=== PATIENT | female | born 1955 | race Caucasian/White ===

== ENCOUNTER 2023-04-05 09:25 | Emergency (ER) | payer MEDICARE, OTHER, SELFPAY ==
[2023-04-05 09:30] VITALS: BP 148/72
[2023-04-05 09:56] LABS: % Basophils 0.3 % (0-2); % Eosinophils 1.6 % (0-6); % Immature Granulocytes 0.3 % (0-0.5); % Lymphocytes 8.3 % (20.5-51.1); % Monocytes 10.5 % (1.7-9.3); Absolute Eosinophils 0.1 10^3/uL (0-0.7); Absolute Lymphocytes 0.3 10^3/uL (1.2-3.4); Absolute Monocytes 0.3 10^3/uL (0.1-0.6); Absolute Neutrophils 2.5 10^3/uL (1.4-6.5); Hematocrit 38.3 % (37.0-47.0); Hemoglobin 12.9 g/dL (12.0-16.0); Mean Corp Hgb Conc. 33.7 g/dL (33.0-37.0); Mean Corpuscular Hgb 30.3 pg (27.0-31.0); Mean Corpuscular Volume 89.9 fL (81.0-99.0); Mean Platelet Volume 10.1 fL (7.4-10.4); Nucleated Red Blood Cells % 0 %; Platelet Count 162 10^3/uL (130-400); Red Blood Cell Count 4.26 10^6/uL (4.20-5.40); Red Cell Dist. Width 13.3 % (11.5-14.5); White Blood Cell Count 3.2 10^3/uL (4.8-10.8)
[2023-04-05 10:04] LABS: COVID-19 Antigen Negative (Negative)
[2023-04-05] MEDS: TYLENOL 1000 MG PO (11:32)
[2023-04-05] MEDS: ZOFRAN 4 MG IV (11:41)
[2023-04-05] MEDS: DUONEB 3 ML INH (11:41)
[2023-04-05] MEDS: NSS 1000 IV (11:41)
[2023-04-05] MEDS: TORADOL 15 MG IV (12:25)
[2023-04-05 12:29] LABS: ALT (SGPT) 28 U/L (0-35); AST (SGOT) 29 U/L (14-36); Albumin 4.3 g/dl (3.5-5.0); Alkaline Phosphatase 69 U/L (38-126); Blood Urea Nitrogen 9 mg/dl (7-17); Calcium 8.5 mg/dl (8.4-10.2); Carbon Dioxide 25 mmol/L (22-30); Chloride 104 mmol/L (98-107); Glucose 92 mg/dl (70-99); Potassium 4.1 mmol/L (3.5-5.1); Sodium 134 mmol/L (135-145); Total Bilirubin 0.8 mg/dl (0.2-1.3); Total Protein 6.6 g/dl (6.3-8.2); eGFR > 60.00
[2023-04-05 13:59] VITALS: BP 106/45
[2023-04-05] MEDS: BENADRYL 12.5 MG IV (13:59)
[2023-04-05] MEDS: REGLAN 10 MG IV (13:59)
[2023-04-05] MEDS: MAGNESIUM SULFATE 50 IV (13:59)
[2023-04-05] MEDS: NSS 500 IV (14:00)
--- NOTE | 2023-04-05 15:47 | ED.GENMED ---
History of Present Illness
General
Chief Complaint: Cold/Flu/URI Symptoms
Source: patient and spouse
Exam Limitations: none
Time Seen by Provider: 04/05/23 11:00
Nursing documentation reviewed up to this point in time: agreed with
Travel History
Have you had any contact with someone who has COVID-19?: No
Do you have any symptoms of coronavirus? Fever > 100 degrees, chills, cough, shortness of breath, sore throat, loss of taste or smell, muscle aches, or headache?: Yes
Symptoms:: cough
History of Present Illness
History of Present Illness:
67-year-old female with a past medical history of hyperlipidemia who presents to the emergency department accompanied by her for evaluation of flulike illness. Patient reports that she was recently on vacation and returned home a few days
ago. She says that on the flight home and since she has arrived home she has had progressive flulike symptoms. She says initially she started with nausea and since has developed cough, congestion, fever and chills. She says she has been vomiting.
She has had some diarrhea. She says that she is having some mild shortness of breath. She says that the symptoms do not seem to be going away and she is having trouble tolerating p.o., thus came to the emergency room to be assessed. She has had
mild headache. No neck pain or stiffness. No chest pain. No abdominal pain.
Past History
Past History
ED Past Medical History: Cancer ( lymphoma), Hypercholesterolemia and Hypothyroidism
ED Past Surgical History: Appendectomy, Gynecological, Orthopedic and Other (Biopsy)
Social History
Tobacco: Non-smoker
Alcohol: Occasional
Drug: None
Personal:
Living: with family
Family History
Family History: CAD
Review of Systems
Review of Systems
All Other Systems: ROS reviewed and negative except as documented in HPI and ROS
Constitutional: Reports fever, fatigue and chills
EENT: Reports runny nose
Respiratory: Reports cough and trouble breathing
Cardiac: Denies chest pain
ABD/GI: Reports nausea, vomiting and diarrhea; Denies abdominal pain
: Denies flank pain
Musculoskeletal: Reports muscle pain (Myalgias); Denies neck pain
Neurological: Reports headache; Denies dizzy, weakness or numbness
Phy Exam
Physical Exam
Physical Exam:
General: Awake, alert, oriented x3; no acute distress
Head: Normocephalic, atraumatic
Eyes: Conjunctiva normal, sclera anicteric
Throat: Airway intact, mucous membranes slightly dry
Neck: Trachea midline, supple without meningismus
Lungs: Normal respiratory rate and work of breathing; faint scattered wheezing with frequent coughing with deep inspiration
Heart: Regular rate and rhythm, no murmurs, gallops, or rubs
Abd: Soft, non distended, nontender
Neuro: Cranial nerves grossly intact, speech fluid
Skin: no rash
Extremities: No edema in extremities, equal pulses in all extremities
Scores
Heart Failure Risk
Heart Failure Risk Score: Not Applicable
Heart Score for Chest Pain Patients
STEMI patient?: Not applicable
Withdrawal Assessment of Alcohol
Withdrawal Assessment Completed?: Not applicable
Course
Orders/Labs/Results
Orders:
Orders
04/05/23 09:39
CBC/With Diff [Complete Blood Count/With Diff] Urgent
COVID-19 Antigen Urgent
Source: Nasal Swab
INF RAPID [Influenza A+B Rapid Molecular] Urgent
LONI Source: Nasal Swab
Specimen Description:
04/05/23 09:40
Comprehensive Metabolic Panel Urgent
04/05/23 11:01
CR Chest - 2 Views Urgent
Comment:
Reason For Exam: cough, sob, flu+
04/05/23 11:02
Electrocardiogram (*1) Urgent
Reason for Study: Shortness of Breath
EKG- Treatment ONCE
Acetaminophen [Tylenol] 1,000 mg PO NOW STA
04/05/23 11:13
0.9% Sodium Chloride 1000 ml [Nss] 1,000 ml IV BOLUS
Ipratropium/Albuterol Sulfate [Duoneb] 3 ml INH R NOW ONE
Ondansetron Injectable [Zofran] 4 mg IV NOW STA
04/05/23 12:21
Ketorolac [Toradol] 15 mg IV NOW STA
04/05/23 13:41
0.9% Sodium Chloride 500 ml [Nss] 500 ml IV BOLUS
Diphenhydramine [Benadryl] 12.5 mg IV NOW STA
Magnesium Sulfate 2 Gram/50 ml [Magnesium Sulfate] 2 gram in 50 ml IV NOW
Metoclopramide [Reglan] 10 mg IV NOW STA
Abnormal Lab Results
04/05/23 04/05/23
09:39 09:40
WBC 3.2 L 10^3/uL
(4.8-10.8)
Absolute Lymphs (auto) 0.3 L 10^3/uL
(1.2-3.4)
Neutrophils % 79.0 H %
(42.2-75.2)
Lymphocytes % 8.3 L %
(20.5-51.1)
Monocytes % 10.5 H %
(1.7-9.3)
Sodium 134 L mmol/L
(135-145)
04/05/23 09:39
04/05/23 09:40
Vital Signs
Initial and Last Documented VS:
Initial Vital Signs
Temp Pulse Resp BP Pulse Ox
38.1 C H 97 16 148/72 98
04/05/23 09:30 04/05/23 09:30 04/05/23 09:30 04/05/23 09:30 04/05/23 09:30
Last Documented Vital Signs
Temp Pulse Resp BP Pulse Ox
37.1 C 94 18 106/45 96
04/05/23 13:59 04/05/23 13:59 04/05/23 13:59 04/05/23 13:59 04/05/23 13:59
MDM/Problems Addressed
Differential Diagnosis Includes:
Viral syndrome including influenza or COVID, pneumonia; meningitis always a consideration with headache, fever, vomiting--while she has had mild headache she has no neck pain or stiffness and symptoms more consistent with viral syndrome, supple neck
on exam�in my judgment there is no indication for lumbar puncture at least upfront
MDM/Problems Addressed:
67-year-old female presents for evaluation of flulike syndrome for the past 3 days after returning from vacation. Primary symptoms are nausea and vomiting with cough, congestion, shortness of breath, fever/chills. Vital signs here significant for
low-grade fever 38.1 �C. Rest of vitals within normal limits. Clinically she does appear slightly dehydrated. Exam as above. Will plan to place an IV check labs including a CBC and CMP; swab for COVID and influenza. Check a chest x-ray to rule
out pneumonia. Will check an EKG. Will treat symptomatically in the meantime with Tylenol for fever, Toradol for headache, Zofran for nausea, IV fluids. Will treat with a DuoNeb as she does have some very faint wheezing on exam and significant
cough. Monitor closely reassess after the above.
Labs reviewed CBC shows marginal leukopenia to 3.2. CMP no clinically significant abnormalities. COVID swab negative. Influenza swab positive which I suspect is the etiology of her symptoms. Chest x-ray shows no pneumonia. Clinical reassessment
patient still complaining of some nausea and mild headache. Will treat with some Reglan, Benadryl, magnesium and continue fluids.
Clinical reassessment after medications as above patient is sleeping comfortably. Will continue to monitor for short period of time. She has not had any vomiting here. Will trial p.o.
Patient tolerating p.o. in fact was requesting food. She is feeling a bit better after medications. I think at this point she is stable for discharge. Considered treating with Tamiflu but patient now 3 days into the course of her symptoms outside
the window for benefit and Tamiflu may exacerbate nausea/vomiting regardless. Will opt instead for supportive treatment with Tylenol/Motrin, Zofran, Mucinex, plenty of fluids. Patient feels comfortable with this plan. Spoke to her about return
precautions all questions answered.
*Radiology
Radiology exam reviewed: preliminary read by ED provider and radiology read reviewed
*Pulse Oximetry
Patient hypoxic: no
*EKG
Interpreted by ED Provider?: Yes
Heart Rate: 103
Rate: normal
Rhythm: sinus
[place]: normal axis
Interval: normal interval
QRS Pattern: normal QRS
Ischemia: no ischemia
*Critical Care Note
Total Time (30-74mins, 75-104mins- exclusive of procedures): Not Applicable
Data Reviewed
Review of Other/Old Records Reveals: Labs and Records
Source: patient and spouse
Prescriptions/Medications Considered But Not Given:
Considered Tamiflu as above
Further Testing Considered But Not Given:
Considered lumbar puncture as above
ED Attending Note
-
Portions of this chart may have been created with voice recognition software.� Occasional wrong word or��sound alike� substitutions may have occurred due to the inherent limitations of voice recognition software.
Discharge Plan
Departure
Patient with high blood pressure during this ER visit?: No
Discharge Problem:
Influenza A
Instructions: Viral Syndrome (DC)
Prescriptions:
New
ondansetron 4 mg tablet,disintegrating
4 mg PO TIDPRN PRN (Reason: nausea/vomiting) Qty: 20 0RF
guaifenesin [Mucinex] 600 mg tablet extended release 12hr
600 mg PO BID Qty: 14 0RF
No Action
raloxifene 60 MG tablet
10 mg PO DAILY
rosuvastatin 40 MG tablet
40 mg PO HS
ascorbic acid (vitamin C) [Vitamin C] 500 MG tablet
1,000 mg PO BID Qty: 56 0RF
zinc sulfate 220 MG capsule
220 mg PO DAILY Qty: 14 0RF
cholecalciferol (vitamin D3) 1,000 UNITS tablet
2,000 units PO DAILY Qty: 28 0RF
Multivitamin Gummies
1 tab PO DAILY
oxycodone 5 mg tablet
5 - 10 mg PO Q4HPRN PRN (Reason: moderate to severe pain) Qty: 20 0RF
prednisone 10 mg Tablet
See Rx Instructions .ROUTE .COMPLEX Qty: 30 0RF
Rx Instructions:
Take By Mouth:
40 mg daily x3 days, 30 mg daily x3 days,
20 mg daily x3 days, 10 mg daily x3 days.
albuterol sulfate [ProAir HFA] 90 mcg/actuation Hfa Aerosol Inhaler
2 puff INHALATION R Q4HPRN PRN (Reason: shortness of breath) Qty: 8.5 0RF
benzonatate 100 mg capsule
100 mg PO TID PRN (Reason: Cough) Qty: 10 0RF
prednisone 50 mg tablet
50 mg PO DAILY Qty: 5 0RF
doxycycline hyclate 100 mg tablet
100 mg PO BID 10 Days Qty: 20 0RF
albuterol sulfate 90 mcg/actuation HFA aerosol inhaler
2 puff inhalation Q6H PRN (Reason: shortness of breath or wheezing) Qty: 6.7 0RF
Referrals:
Forrest Rodríguez MD [Family Provider] - Call in 1-3 days for appt
Activity Restrictions/Additional Instructions:
Thank you for visiting the Emergency Department at [facility].
1. Please schedule a follow up appointment as directed. Call first thing tomorrow morning to make an appointment.
2. If indicated, please take your medications as instructed and indicated on discharge paperwork.
3. If any of your symptoms do not improve, or persist, or become more severe within 6-12 hours, please return to the emergency department for further care.
4. Please return to the emergency department if you develop a headache, neck pain/stiffness, fever greater than 100.4F, chest pain, shortness of breath, persistent nausea, vomiting, slurred speech, difficulty walking, numbness/tingling, weakness,
signs of infection or any other symptoms that are worrisome to you.
Please call [phone] if you have any questions.
Interventions
Interventions:
*Risk Screen - Suicide Last Done: 04/05/23 09:30
*General Assessment Last Done: 04/05/23 09:30
*Neglect/Abuse Screening Last Done: 04/05/23 09:30
ED- Fall Risk Assessment Last Done: 04/05/23 14:03
*ED COVID-19 Vaccine History Last Done: 04/05/23 14:03
ED- Pulmonary Assessment Last Done: 04/05/23 11:48
[2023-04-05 16:40] VITALS: BP 108/64
== END 2023-04-05 16:41 | disposition home or self-care (01) ==
LOC: EMR 09:25
PROVIDERS: Emergency Medicine; EMERGENCY PHYSICIAN Emergency Medicine; FAMILY PHYSICIAN Family Medicine
DX: J10.1 Influenza due to other identified influenza virus with other respiratory manifestations (principal); E86.0 Dehydration; R06.02 Shortness of breath; E03.9 Hypothyroidism, unspecified; Z11.52 Encounter for screening for COVID-19
CPT/HCPCS: 99285; 96365; 96375 ×4; 94640; 71046; 80053; 85025; 87502; 87811; 93005

== ENCOUNTER → 2023-06-10 15:00 | Outpatient (REF) | payer MEDICARE, OTHER, SELFPAY | LOC: RAD 15:00 | PROVIDERS: ATTENDING PHYSICIAN Internal Medicine Critical Care Medicine; FAMILY PHYSICIAN Family Medicine | DX: R93.89 Abnormal findings on diagnostic imaging of other specified body structures (principal); J21.9 Acute bronchiolitis, unspecified | CPT/HCPCS: 71250 ==

== ENCOUNTER → 2023-09-04 13:22 | Outpatient (REF) | payer MEDICARE, OTHER, SELFPAY | LOC: WDC 13:22 | PROVIDERS: ATTENDING PHYSICIAN Obstetrics & Gynecology Gynecology; FAMILY PHYSICIAN Family Medicine | DX: M85.89 Other specified disorders of bone density and structure, multiple sites (principal); Z12.31 Encounter for screening mammogram for malignant neoplasm of breast | CPT/HCPCS: 77063; 77067; 77080 ==

== ENCOUNTER → 2023-10-03 08:32 | Outpatient (REF) | payer MEDICARE, OTHER, SELFPAY | LOC: RAD 08:32 | PROVIDERS: ATTENDING PHYSICIAN Internal Medicine Gastroenterology; FAMILY PHYSICIAN Family Medicine | DX: K59.00 Constipation, unspecified (principal) | CPT/HCPCS: 74270 ==

== ENCOUNTER → 2023-10-28 14:44 | Outpatient (REF) | payer MEDICARE, OTHER, SELFPAY | LOC: WDC 14:44 | PROVIDERS: ATTENDING PHYSICIAN Obstetrics & Gynecology Gynecology; FAMILY PHYSICIAN Family Medicine | DX: R92.2 Inconclusive mammogram (principal) | CPT/HCPCS: 76641 ==

== ENCOUNTER → 2023-11-01 10:44 | Outpatient (REF) | payer MEDICARE, OTHER, SELFPAY | LOC: RAD 10:44 | PROVIDERS: ATTENDING PHYSICIAN Nurse Practitioner Family; FAMILY PHYSICIAN Family Medicine; REFERRING PHYSICIAN Obstetrics & Gynecology | DX: R19.00 Intra-abdominal and pelvic swelling, mass and lump, unspecified site (principal) | CPT/HCPCS: 76700; 76856 ==

== ENCOUNTER 2023-11-06 14:59 | Outpatient (RCR) | payer MEDICARE, OTHER, SELFPAY | END 2023-11-06 23:59 | disposition home or self-care (01) | LOC: RPT 14:59 | PROVIDERS: ATTENDING PHYSICIAN Obstetrics & Gynecology; FAMILY PHYSICIAN Family Medicine | DX: K59.00 Constipation, unspecified (principal); R19.8 Other specified symptoms and signs involving the digestive system and abdomen; M62.89 Other specified disorders of muscle; Z73.6 Limitation of activities due to disability | CPT/HCPCS: 97110; 97140; 97163; 97530 ==

== ENCOUNTER 2023-11-25 14:06 | Outpatient (RCR) | payer MEDICARE, OTHER, SELFPAY | END 2023-11-25 23:59 | disposition home or self-care (01) | LOC: RPT 14:06 | PROVIDERS: ATTENDING PHYSICIAN Obstetrics & Gynecology; FAMILY PHYSICIAN Family Medicine | DX: K59.00 Constipation, unspecified (principal); R19.8 Other specified symptoms and signs involving the digestive system and abdomen; M62.89 Other specified disorders of muscle; Z73.6 Limitation of activities due to disability | CPT/HCPCS: 97140; 97530 ==

== ENCOUNTER 2023-12-25 13:57 | Outpatient (RCR) | payer MEDICARE, OTHER, SELFPAY | END 2023-12-25 23:59 | disposition home or self-care (01) | LOC: RPT 13:57 | PROVIDERS: ATTENDING PHYSICIAN Obstetrics & Gynecology; FAMILY PHYSICIAN Family Medicine | DX: K59.00 Constipation, unspecified (principal); R19.8 Other specified symptoms and signs involving the digestive system and abdomen; M62.89 Other specified disorders of muscle; Z73.6 Limitation of activities due to disability | CPT/HCPCS: 97010; 97110; 97112; 97140; 97530 ==

== ENCOUNTER 2024-01-15 11:35 | Outpatient (RCR) | payer MEDICARE, OTHER, SELFPAY | END 2024-01-15 13:48 | disposition home or self-care (01) | LOC: RPT 11:35 | PROVIDERS: ATTENDING PHYSICIAN Obstetrics & Gynecology; FAMILY PHYSICIAN Family Medicine | DX: M62.89 Other specified disorders of muscle (principal); R19.8 Other specified symptoms and signs involving the digestive system and abdomen; K59.00 Constipation, unspecified | CPT/HCPCS: 97110; 97112; 97140; 97530 ==

== ENCOUNTER → 2024-01-31 09:02 | Outpatient (REF) | payer MEDICARE, OTHER, SELFPAY | LOC: RCS 09:02 | PROVIDERS: ATTENDING PHYSICIAN Internal Medicine Cardiovascular Disease; FAMILY PHYSICIAN Family Medicine | DX: I35.1 Nonrheumatic aortic (valve) insufficiency (principal) | CPT/HCPCS: 93306 ==

== ENCOUNTER 2024-02-03 16:56 | Outpatient (RCR) | payer MEDICARE, OTHER, SELFPAY | END 2024-02-03 23:59 | disposition home or self-care (01) | LOC: RPT 16:56 | PROVIDERS: ATTENDING PHYSICIAN Specialist; FAMILY PHYSICIAN Family Medicine | DX: M75.42 Impingement syndrome of left shoulder (principal); M75.32 Calcific tendinitis of left shoulder; M75.02 Adhesive capsulitis of left shoulder; M25.512 Pain in left shoulder; Z73.6 Limitation of activities due to disability; M62.81 Muscle weakness (generalized) | CPT/HCPCS: 97010; 97110; 97112; 97140; 97161 ==

== ENCOUNTER 2024-02-25 06:35 | Outpatient (RCR) | payer MEDICARE, OTHER, SELFPAY | END 2024-02-25 23:59 | disposition home or self-care (01) | LOC: RPT 06:35 | PROVIDERS: ATTENDING PHYSICIAN Specialist; FAMILY PHYSICIAN Family Medicine | DX: M75.42 Impingement syndrome of left shoulder (principal); M75.32 Calcific tendinitis of left shoulder; M75.02 Adhesive capsulitis of left shoulder; M25.512 Pain in left shoulder; Z73.6 Limitation of activities due to disability; M62.81 Muscle weakness (generalized) | CPT/HCPCS: 97010; 97110; 97112; 97140 ==

== ENCOUNTER → 2024-05-11 15:00 | Outpatient (REF) | payer MEDICARE, OTHER, SELFPAY | LOC: PAVMRI 15:00 | PROVIDERS: ATTENDING PHYSICIAN Specialist; FAMILY PHYSICIAN Family Medicine | DX: M25.512 Pain in left shoulder (principal) | CPT/HCPCS: 73221 ==

== ENCOUNTER 2024-06-30 13:58 | Emergency (ER) | payer MEDICARE, OTHER, SELFPAY ==
[2024-06-30 14:00] VITALS: BP 135/62
--- NOTE | 2024-06-30 16:49 | EDRN ---
the pt pressed the call ro and this RN entered the pts room, the pt stated to this RN, 'I am going to just leave if a doctor doesn't see me i have been here forever', this RN notified Dr. Navarro who is currently at the pts bedside
[2024-06-30 17:00] VITALS: BP 123/67
[2024-06-30] MEDS: OMNIPAQUE 50 ML PO (17:04)
[2024-06-30 17:08] VITALS: BMI 21.6
[2024-06-30 17:10] VITALS: BP 123/67
[2024-06-30 17:21] LABS: % Basophils 0.2 % (0-2); % Eosinophils 2.4 % (0-6); % Immature Granulocytes 0.3 % (0-0.5); % Lymphocytes 16.4 % (20.5-51.1); % Monocytes 8.3 % (1.7-9.3); % Neutrophils 72.4 % (42.2-75.2); Absolute Eosinophils 0.1 10^3/uL (0-0.7); Absolute Monocytes 0.5 10^3/uL (0.1-0.6); Absolute Neutrophils 4.3 10^3/uL (1.4-6.5); Hematocrit 35.1 % (37.0-47.0); Mean Corp Hgb Conc. 34.2 g/dL (33.0-37.0); Mean Corpuscular Hgb 30.9 pg (27.0-31.0); Mean Corpuscular Volume 90.5 fL (81.0-99.0); Mean Platelet Volume 10.1 fL (7.4-10.4); Nucleated Red Blood Cells % 0 %; Platelet Count 172 10^3/uL (130-400); Red Blood Cell Count 3.88 10^6/uL (4.20-5.40); Red Cell Dist. Width 12.6 % (11.5-14.5); White Blood Cell Count 5.9 10^3/uL (4.8-10.8)
[2024-06-30 17:39] LABS: ALT (SGPT) 16 U/L (0-35); AST (SGOT) 17 U/L (14-36); Alkaline Phosphatase 58 U/L (38-126); Blood Urea Nitrogen 14 mg/dl (7-17); Calcium 8.9 mg/dl (8.4-10.2); Carbon Dioxide 26 mmol/L (22-30); Chloride 103 mmol/L (98-107); Estimated Creatinine Clearance 74 ml/min; Glucose 107 mg/dl (70-99); Potassium 4.1 mmol/L (3.5-5.1); Sodium 136 mmol/L (135-145); Total Protein 6.2 g/dl (6.3-8.2); eGFR > 60.00
--- NOTE | 2024-06-30 19:11 | ED.GENMED ---
History of Present Illness
General
Chief Complaint: Bowel Problem
Source: patient and spouse
Exam Limitations: none
Time Seen by Provider: 06/30/24 16:39
Nursing documentation reviewed up to this point in time: agreed with
History of Present Illness
History of Present Illness:
69-year-old female with past medical history as documented presents to the ER for evaluation of constipation and abdominal pain. Patient reports symptoms have been worsening over the past 4 days. She reports lower abdominal discomfort 'like I am
in labor.' She says that she has not had a bowel movement in 4 days. She is passing gas. Poor appetite mild nausea no vomiting. No fever or chills. No urinary symptoms. She says she has been taking oral magnesium, Colace, Metamucil and eating
fiber but these things have not helped and so she came to the ER for evaluation. She does have prior surgical history of hysterectomy, appendectomy, oophorectomy, cholecystectomy
Past History
Past History
ED Past Medical History: Cancer ( lymphoma), Hypercholesterolemia and Hypothyroidism
ED Past Surgical History: Appendectomy, Gynecological, Orthopedic and Other (Biopsy)
Social History
Tobacco: Non-smoker
Alcohol: Occasional
Drug: None
Personal:
Living: with family
Family History
Family History: CAD
Review of Systems
Review of Systems
All Other Systems: ROS reviewed and negative except as documented in HPI and ROS
Constitutional: Denies fever or chills
Respiratory: Denies trouble breathing
Cardiac: Denies chest pain
ABD/GI: Reports abdominal pain, nausea, constipated and anorexia; Denies vomiting or diarrhea
: Denies dysuria or flank pain
Musculoskeletal: Denies neck pain or back pain
Neurological: Denies dizzy or headache
Phy Exam
Physical Exam
Physical Exam:
General: Awake, alert, oriented x3; no acute distress
Head: Normocephalic, atraumatic
Eyes: Conjunctiva normal, sclera anicteric
Throat: Airway intact, handling secretions
Neck: Trachea midline, supple without meningismus
Lungs: Breathing comfortably no distress
Heart: Regular rate
Abd: Soft, non distended, mild diffuse tenderness
Rectal: No stool noted in the rectal vault
Neuro: No gross deficits
Extremities: Warm and well-perfused
Scores
Heart Failure Risk
Heart Failure Risk Score: Not Applicable
Heart Score for Chest Pain Patients
STEMI patient?: Not applicable
Withdrawal Assessment of Alcohol
Withdrawal Assessment Completed?: Not applicable
Course
Orders/Labs/Results
Orders:
Orders
06/30/24 14:02
Obstruct Series W/PA Chest [CR Obstruct Series W/pa Chest] Urgent
Comment:
Reason For Exam: constipation for 4 days
06/30/24 16:52
CT Abd/pel W Iv And Oral Contr Urgent
Comment:
Reason For Exam: abd pain, constipation; cf SBO
Iohexol [Omnipaque] See Protocol PO NOW STA
06/30/24 17:06
Complete Blood Count/With Diff Urgent
Comprehensive Metabolic Panel Urgent
06/30/24 19:40
Bladder Scan- Treatment ONCE
Straight cath- Treatment ONCE
06/30/24 20:05
MetroNIDAZOLE [Flagyl] 500 mg PO NOW STA
06/30/24 20:06
Ciprofloxacin HCl [Cipro] 500 mg PO ONCE ONE
Abnormal Lab Results
06/30/24
17:06
RBC 3.88 L 10^6/uL
(4.20-5.40)
Hct 35.1 L %
(37.0-47.0)
Absolute Lymphs (auto) 1.0 L 10^3/uL
(1.2-3.4)
Lymphocytes % 16.4 L %
(20.5-51.1)
Glucose 107 H mg/dl
(70-99)
Total Protein 6.2 L g/dl
(6.3-8.2)
06/30/24 17:06
06/30/24 17:06
Vital Signs
Initial and Last Documented VS:
Initial Vital Signs
Temp Pulse Resp BP Pulse Ox
37.1 C 96 18 135/62 100
06/30/24 14:00 06/30/24 14:00 06/30/24 14:00 06/30/24 14:00 06/30/24 14:00
Last Documented Vital Signs
Temp Pulse Resp BP Pulse Ox
36.4 C 76 20 123/67 98
06/30/24 17:10 06/30/24 17:10 06/30/24 17:10 06/30/24 17:10 06/30/24 17:10
MDM/Problems Addressed
Differential Diagnosis Includes:
Bowel obstruction, constipation, diverticulitis
MDM/Problems Addressed:
69-year-old female presents for lower abdominal pain associated with constipation. Ongoing x 4 days. History of prior abdominal surgeries as described. Vitals normal. Exam as above. She had an x-ray of the abdomen in triage which showed no
clear obstruction but given her surgical history and tenderness we will check CT of the abdomen pelvis with p.o. and IV contrast. Usual labs sent off. Reassess after the above.
Labs reviewed: CBC and CMP unremarkable. CT still pending.
CT shows mild to moderate constipation and acute uncomplicated sigmoid diverticulitis. Plan to treat with antibiotics advised clear liquid diet and advance to low fiber over the next few days. Patient comfortable with this plan. Follow-up with
PCP. Spoke about return precautions all questions answered. I provided a copy of imaging reports for her to follow-up with her primary doctor.
Patient was noted to have urinary retention�straight cath prior to discharge will trial void suspect will improve with treatment diverticulitis and constipation. Discussed with patient will follow-up with PCP.
*Radiology
Radiology exam reviewed: radiology read reviewed
*Pulse Oximetry
Patient hypoxic: no
*Critical Care Note
Total Time (30-74mins, 75-104mins- exclusive of procedures): Not Applicable
Data Reviewed
Review of Other/Old Records Reveals: Labs
Source: patient, records and spouse
ED Attending Note
-
Portions of this chart may have been created with voice recognition software.� Occasional wrong word or��sound alike� substitutions may have occurred due to the inherent limitations of voice recognition software.
Discharge Plan
Departure
Patient Disposition: Home (Routine Discharge)
Date of Disposition: 06/30/24
Time of Disposition: 20:07
Patient with high blood pressure during this ER visit?: No
Discharge Problem:
Constipation, Diverticulitis
Instructions: Clear Liquid Diet, Constipation, Adult (DC), Diverticulitis - Discharge instructions
Prescriptions:
New
metronidazole 500 mg tablet
500 mg PO TID Qty: 21 0RF
ciprofloxacin HCl 500 mg tablet
500 mg PO BID Qty: 14 0RF
No Action
raloxifene 60 MG tablet
10 mg PO DAILY
rosuvastatin 40 MG tablet
40 mg PO HS
ascorbic acid (vitamin C) [Vitamin C] 500 MG tablet
1,000 mg PO BID Qty: 56 0RF
zinc sulfate 220 MG capsule
220 mg PO DAILY Qty: 14 0RF
cholecalciferol (vitamin D3) 1,000 UNITS tablet
2,000 units PO DAILY Qty: 28 0RF
Multivitamin Gummies
1 tab PO DAILY
oxycodone 5 mg tablet
5 - 10 mg PO Q4HPRN PRN (Reason: moderate to severe pain) Qty: 20 0RF
albuterol sulfate [ProAir HFA] 90 mcg/actuation Hfa Aerosol Inhaler
2 puff INHALATION R Q4HPRN PRN (Reason: shortness of breath) Qty: 8.5 0RF
benzonatate 100 mg capsule
100 mg PO TID PRN (Reason: Cough) Qty: 10 0RF
doxycycline hyclate 100 mg tablet
100 mg PO BID 10 Days Qty: 20 0RF
albuterol sulfate 90 mcg/actuation HFA aerosol inhaler
2 puff inhalation Q6H PRN (Reason: shortness of breath or wheezing) Qty: 6.7 0RF
ondansetron 4 mg tablet,disintegrating
4 mg PO TIDPRN PRN (Reason: nausea/vomiting) Qty: 20 0RF
guaifenesin [Mucinex] 600 mg tablet extended release 12hr
600 mg PO BID Qty: 14 0RF
Referrals:
Forrest Rodríguez MD [Family Provider] - Follow up in 5-7 days
Activity Restrictions/Additional Instructions:
Thank you for visiting the Emergency Department at [facility].
1. Please schedule a follow up appointment as directed. Call first thing tomorrow morning to make an appointment.
2. If indicated, please take your medications as instructed and indicated on discharge paperwork.
3. If any of your symptoms do not improve, or persist, or become more severe within 6-12 hours, please return to the emergency department for further care.
4. Please return to the emergency department if you develop a headache, neck pain/stiffness, fever greater than 100.4F, chest pain, shortness of breath, persistent nausea, vomiting, slurred speech, difficulty walking, numbness/tingling, weakness,
signs of infection or any other symptoms that are worrisome to you.
Please call [phone] if you have any questions.
Interventions
Interventions:
*Risk Screen - Suicide Last Done: 06/30/24 14:01
*General Assessment Last Done: 06/30/24 14:01
*Neglect/Abuse Screening Last Done: 06/30/24 14:01
*ED- Fall Risk Assessment Last Done: 06/30/24 17:10
*ED COVID-19 Vaccine History Last Done: 06/30/24 14:01
WC-Losfzs-Ynyjdllumt Assessment Last Done: 06/30/24 17:10
Discharge Date and Time
Print Language: AMHARIC
[2024-06-30] MEDS: FLAGYL 500 MG PO (20:27)
[2024-06-30] MEDS: CIPRO 500 MG PO (20:27)
== END 2024-06-30 20:45 | disposition home or self-care (01) ==
LOC: EMR 13:58
PROVIDERS: EMERGENCY PHYSICIAN Emergency Medicine; FAMILY PHYSICIAN Family Medicine
DX: K57.32 Diverticulitis of large intestine without perforation or abscess without bleeding (principal); K59.00 Constipation, unspecified; R10.30 Lower abdominal pain, unspecified; R63.0 Anorexia; R11.0 Nausea; E03.9 Hypothyroidism, unspecified; E78.00 Pure hypercholesterolemia, unspecified; Z90.49 Acquired absence of other specified parts of digestive tract; Z85.72 Personal history of non-Hodgkin lymphomas; Z86.16 Personal history of COVID-19; Z88.1 Allergy status to other antibiotic agents; Z88.2 Allergy status to sulfonamides; Z88.8 Allergy status to other drugs, medicaments and biological substances
CPT/HCPCS: 99285; 51798; 51701; 74022; 74177; 80053; 85025; Q9967

== ENCOUNTER 2024-07-07 11:16 | Emergency (ER) | payer MEDICARE, OTHER, SELFPAY ==
[2024-07-07 11:17] VITALS: BP 147/87
[2024-07-07 11:58] VITALS: BMI 22.6
[2024-07-07 12:02] VITALS: BP 138/58
[2024-07-07 12:25] LABS: % Basophils 0.4 % (0-2); % Eosinophils 0.9 % (0-6); % Immature Granulocytes 0.3 % (0-0.5); % Lymphocytes 8.2 % (20.5-51.1); % Monocytes 5.5 % (1.7-9.3); % Neutrophils 84.7 % (42.2-75.2); Absolute Eosinophils 0.1 10^3/uL (0-0.7); Absolute Lymphocytes 0.7 10^3/uL (1.2-3.4); Absolute Monocytes 0.4 10^3/uL (0.1-0.6); Absolute Neutrophils 6.8 10^3/uL (1.4-6.5); Hematocrit 38.6 % (37.0-47.0); Hemoglobin 13.2 g/dL (12.0-16.0); Mean Corp Hgb Conc. 34.2 g/dL (33.0-37.0); Mean Corpuscular Hgb 30.6 pg (27.0-31.0); Mean Corpuscular Volume 89.4 fL (81.0-99.0); Mean Platelet Volume 9.8 fL (7.4-10.4); Nucleated Red Blood Cells % 0 %; Platelet Count 247 10^3/uL (130-400); Red Blood Cell Count 4.32 10^6/uL (4.20-5.40); Red Cell Dist. Width 12.4 % (11.5-14.5)
--- NOTE | 2024-07-07 12:26 | ED.GENMED ---
History of Present Illness
General
Chief Complaint: Rectal Bleeding
Source: patient
Time Seen by Provider: 07/07/24 12:02
History of Present Illness
History of Present Illness:
69-year-old female with past medical history of hyperlipidemia, previous salivary gland cancer and lymphoma, recently seen in this emergency department and diagnosed with diverticulitis and constipation causing urinary retention/bladder outlet
obstruction presenting back to the emergency department after she spoke with the GI team on the phone as she started to have darker stools and loose stools with the GI team/office referring patient back to the emergency department with concerns for
possible GI bleeding. Patient stated on the telephone that her stools were very dark, possibly black, but when further asked pressed on this matter patient stated they just seemed dark and sand-like. She does have a history of C. difficile but
states that while her stool was not formed it is not watery/liquidy. She still endorses waxing waning abdominal discomfort but denies any pain currently. There is, chills, rigors. She does report completing the antibiotics. She does note
multiple previous abdominal surgeries including hysterectomy, oophorectomy, appendectomy and cholecystectomy. Social history otherwise noncontributory although patient does note she is supposed to leave for the [place] this coming Saturday.
Past History
Past History
ED Past Medical History: Cancer ( lymphoma), Hypercholesterolemia and Hypothyroidism
ED Past Surgical History: Appendectomy, Gynecological, Orthopedic and Other (Biopsy)
Social History
Tobacco: Non-smoker
Alcohol: Occasional
Drug: None
Personal:
Living: with family
Family History
Family History: CAD
Review of Systems
Review of Systems
All Other Systems: ROS reviewed and negative except as documented in HPI and ROS
Phy Exam
Physical Exam
Physical Exam:
GENERAL: Alert , in no apparent distress but patient appears anxious
EYE: clear conjunctiva b/l
HEAD: NCAT
ENT: o/p clr, mmm.
CARDIAC: Regular rate and rhythm .
LUNGS: Clear breath sounds bilaterally, no acute respiratory distress, no wheezes/rales/rhonchi
ABDOMEN: Soft, without focal tenderness, no r/g, no cvat
RECTAL EXAM: deferred by patient
NEUROLOGICAL: Alert and oriented
SKIN: Warm and dry, skin intact.
MUSCULOSKELETAL: well perfused.
PSYCH: Normal and appropriate interaction.
Scores
Heart Failure Risk
Heart Failure Risk Score: Not Applicable
Heart Score for Chest Pain Patients
STEMI patient?: Not applicable
Withdrawal Assessment of Alcohol
Withdrawal Assessment Completed?: Not applicable
Course
Orders/Labs/Results
Orders:
Orders
07/07/24 12:10
CMP [Comprehensive Metabolic Panel] Urgent
Lipase Urgent
07/07/24 12:11
Complete Blood Count/With Diff Urgent
07/07/24 12:20
Bladder Scan- Treatment ONCE
07/07/24 12:25
CR Abdomen - 1 View Urgent
Comment:
Reason For Exam: recent diverticulitis, constipation, retention
07/07/24 12:30
Atypical Antibody Screen Urgent
BBK Wristband Number:
Type+Screen Urgent
PTT Urgent
Prothrombin Time Urgent
07/07/24 12:36
ABO2 Urgent
BBK Wristband Number:
Associate notified that ABO2 has been ordered: [id number]
Date: 07/07/24
Time: 12:36
[employer] Social Studies Teacher ID: [id number]
07/07/24 14:15
Urinalysis Reflex To Culture Urgent
Date Specimen was Collected: 07/07/24
Time Specimen was Collected: 14:14
Urine Microscopic Reflex Cult Urgent
Urine Culture Urgent
LONI Source: U
Specimen Description:
Date Specimen was Collected: 07/07/24
Time Specimen was Collected: 14:14
07/07/24 14:50
Enema- Treatment ONCE
Type: Milk of Molasses
Abnormal Lab Results
07/07/24 07/07/24 07/07/24
12:10 12:11 14:15
Absolute Neuts (auto) 6.8 H 10^3/uL
(1.4-6.5)
Absolute Lymphs (auto) 0.7 L 10^3/uL
(1.2-3.4)
Neutrophils % 84.7 H %
(42.2-75.2)
Lymphocytes % 8.2 L %
(20.5-51.1)
Glucose 110 H mg/dl
(70-99)
Leukocyte Esterase Rfl 1+ A
(Negative)
07/07/24 12:11
07/07/24 12:10
Vital Signs
Initial and Last Documented VS:
Initial Vital Signs
Temp Pulse Resp BP Pulse Ox
98.4 F 107 18 147/87 98
07/07/24 11:17 07/07/24 11:17 07/07/24 11:17 07/07/24 11:17 07/07/24 11:17
Last Documented Vital Signs
Temp Pulse Resp BP Pulse Ox
98.4 F 107 18 122/62 100
07/07/24 11:17 07/07/24 11:17 07/07/24 11:17 07/07/24 16:02 07/07/24 16:02
MDM/Problems Addressed
Differential Diagnosis Includes:
GI bleed considered however she is hemodynamically stable with symptoms ongoing for ~ 1 month making this a little less likely, failed outpatient treatment of diverticulitis, abx associated diarrhea/C.Diff colitis, constipation/urinary retention
MDM/Problems Addressed:
69-year-old female presenting back to the emergency department at request of GI team for evaluation after being recently treated for uncomplicated mild diverticulitis. Was also noted at that time patient had mild to moderate constipation on CT
scan. She reports soft bowel movements occurring and increased frequency despite the oral antibiotics. Currently without pain, no fevers. GI front office was concerned for possible bleeding given patient's report of dark stools. Patient declines
rectal exam. Hemoglobin here is greater than 13 making my concern for GI bleed very minimal. Will check additional labs, x-ray of the abdomen ordered, will check bladder scan. Disposition pending
*Radiology
Radiology exam reviewed: preliminary read by ED provider (Nonobstructive bowel gas pattern, minimal stool)
*Pulse Oximetry
Patient hypoxic: no
*Critical Care Note
Total Time (30-74mins, 75-104mins- exclusive of procedures): Not Applicable
Data Reviewed
Review of Other/Old Records Reveals: Labs, Records and Radiology Studies
Patient Management
Discussion with other providers: PCP and Kickboxing Instructor
Escalation/DeEscalation of care consider admission/obs:
Patient's workup is largely unremarkable. Labs reassuring, urine without signs of infection. Patient did have a postvoid residual of around 300 and she stated she felt like she needed to have a bowel movement so she was provided with an enema
which gave her some relief but stating she still felt as if there was stool that needed to come out. She notes that this has been an off-and-on issue for many years and has attempted many different vvqy-svp-cqkdemw regimens over the last few years
including magnesium citrate, MiraLAX, Colace and fiber supplement. Following her enema patient did have some improvement of urinary retention. Her abdomen remains soft and without any focal tenderness. I reached out to the primary care provider
who will follow-up with the patient in consultation as well as GI team given that they were the office recommending the patient come to the ER, they will also follow-up with the patient on basis. I do suspect most of patient's symptoms are chronic
in nature and that she was sent to the emergency department today strictly with concerns for GI bleeding which patient does not have. Patient is aware of return precautions to the ER but at this time stable for discharge home
ED Attending Note
-
Portions of this chart may have been created with voice recognition software.� Occasional wrong word or��sound alike� substitutions may have occurred due to the inherent limitations of voice recognition software.
Discharge Plan
Departure
Patient Disposition: Home (Routine Discharge)
Date of Disposition: 07/07/24
Time of Disposition: 16:26
Patient with high blood pressure during this ER visit?: No
Discharge Problem:
Constipation, Urinary retention with incomplete bladder emptying
Instructions: Constipation in adults - ED discharge instructions
Prescriptions:
No Action
raloxifene 60 MG tablet
60 mg PO DAILY
rosuvastatin 40 MG tablet
40 mg PO HS
cholecalciferol (vitamin D3) 1,000 UNITS tablet
2,000 units PO DAILY Qty: 28 0RF
Centrum MultiGummies 80 mcg Tablet,Chewable
1 tab PO DAILY
metronidazole 500 mg tablet
500 mg PO TID Qty: 21 0RF
ciprofloxacin HCl 500 mg tablet
500 mg PO BID Qty: 14 0RF
esomeprazole magnesium [Nexium] 40 mg Capsule,Delayed Release(Dr/Ec)
40 mg PO DAILY
zolpidem [Ambien] 10 mg Tablet
10 mg PO HS
ascorbic acid (vitamin C) [Vitamin C] 500 MG tablet
1,000 mg PO DAILY
albuterol sulfate 90 mcg/actuation HFA aerosol inhaler
2 puff inhalation R Q6HPRN PRN (Reason: shortness of breath or wheezing)
Referrals:
Forrest Rodríguez MD [Family Provider] -
Interventions
Interventions:
*Risk Screen - Suicide Last Done: 07/07/24 11:17
*General Assessment Last Done: 07/07/24 11:17
*Neglect/Abuse Screening Last Done: 07/07/24 11:17
*ED- Fall Risk Assessment Last Done: 07/07/24 11:58
*ED COVID-19 Vaccine History Last Done: 07/07/24 11:17
*Nursing Disposition Last Done: 07/07/24 16:42
IP-Trcjop-Porzgstfop Assessment Last Done: 07/07/24 11:58
ED- Cardiac Assessment Last Done: 07/07/24 11:58
ED- Pulmonary Assessment Last Done: 07/07/24 11:58
Discharge Date and Time
Discharge Date/Time: 07/07/24 16:43
Print Language: CENTRAL AFRICAN
[2024-07-07 12:40] LABS: ALT (SGPT) 29 U/L (0-35); AST (SGOT) 33 U/L (14-36); Albumin 4.2 g/dl (3.5-5.0); Alkaline Phosphatase 64 U/L (38-126); Blood Urea Nitrogen 9 mg/dl (7-17); Calcium 9.6 mg/dl (8.4-10.2); Carbon Dioxide 28 mmol/L (22-30); Chloride 102 mmol/L (98-107); Estimated Creatinine Clearance 74 ml/min; Glucose 110 mg/dl (70-99); Lipase 64 U/L (23-300); Potassium 4.1 mmol/L (3.5-5.1); Sodium 137 mmol/L (135-145); Total Bilirubin 0.6 mg/dl (0.2-1.3); Total Protein 6.6 g/dl (6.3-8.2); eGFR > 60.00
[2024-07-07 12:49] LABS: INR 1.04
[2024-07-07 12:50] LABS: APTT 25.2 Sec (23.4-35.0)
[2024-07-07 12:55] VITALS: BP 132/61
[2024-07-07 13:29] VITALS: BP 120/69
[2024-07-07 14:35] LABS: Urine Albumin Negative (Neg - Trace); Urine Bilirubin Negative (Negative); Urine Character Clear (Clear); Urine Color Yellow; Urine Glucose Negative (Negative); Urine Ketone Negative (Negative); Urine Leukocyte 1+ (Negative); Urine Nitrite Negative (Negative); Urine Occult Blood Negative (Negative); Urine Urobilinogen Negative (Neg - 1+); Urine pH 6.5 (5.0-9.0)
[2024-07-07 15:23] LABS: Urine Amorphous Seen; Urine Squamous Cell >30 /LPF (Few); Urine Urothelial Cell 26-30 /LPF (FEW)
[2024-07-07 15:25] LABS: Urine Red Blood Cell 0-2 /HPF (0-2); Urine White Cell 0-2 /HPF (0-5)
[2024-07-07 16:02] VITALS: BP 122/62
== END 2024-07-07 16:43 | disposition home or self-care (01) ==
LOC: EMR 11:16
PROVIDERS: Physician Assistant Medical; EMERGENCY PHYSICIAN Emergency Medicine; FAMILY PHYSICIAN Family Medicine
DX: K59.00 Constipation, unspecified (principal); R33.9 Retention of urine, unspecified; E03.9 Hypothyroidism, unspecified; E78.00 Pure hypercholesterolemia, unspecified; Z85.72 Personal history of non-Hodgkin lymphomas; Z85.818 Personal history of malignant neoplasm of other sites of lip, oral cavity, and pharynx; Z90.49 Acquired absence of other specified parts of digestive tract
CPT/HCPCS: 99284; 74018; 80053; 81003; 81015; 83690; 85025; 85610; 85730; 86850; 86900; 86901; 87086

== ENCOUNTER 2024-07-08 10:58 | Outpatient (RCR) | payer MEDICARE, OTHER, SELFPAY | END 2024-07-08 23:59 | disposition home or self-care (01) | LOC: RPT 10:58 | PROVIDERS: ATTENDING PHYSICIAN Specialist; FAMILY PHYSICIAN Family Medicine | DX: Z47.89 Encounter for other orthopedic aftercare (principal); M75.02 Adhesive capsulitis of left shoulder; Z73.6 Limitation of activities due to disability | CPT/HCPCS: 97010; 97110; 97112; 97140; 97161 ==

== ENCOUNTER → 2024-07-20 16:09 | Outpatient (REF) | payer MEDICARE, OTHER, SELFPAY | LOC: RAD 16:09 | PROVIDERS: ATTENDING PHYSICIAN Internal Medicine Gastroenterology; FAMILY PHYSICIAN Family Medicine | DX: K57.92 Diverticulitis of intestine, part unspecified, without perforation or abscess without bleeding (principal) | CPT/HCPCS: 74177; Q9967 ==

== ENCOUNTER 2024-07-28 10:04 | Outpatient (RCR) | payer MEDICARE, OTHER, SELFPAY | END 2024-07-28 23:59 | disposition home or self-care (01) | LOC: RPT 10:04 | PROVIDERS: ATTENDING PHYSICIAN Specialist; FAMILY PHYSICIAN Family Medicine | DX: Z47.89 Encounter for other orthopedic aftercare (principal); M75.02 Adhesive capsulitis of left shoulder; Z73.6 Limitation of activities due to disability | CPT/HCPCS: 97010; 97110; 97112; 97140 ==

== ENCOUNTER 2024-08-11 10:54 | Outpatient (RCR) | payer MEDICARE, OTHER, SELFPAY | END 2024-08-11 23:59 | disposition home or self-care (01) | LOC: RPT 10:54 | PROVIDERS: ATTENDING PHYSICIAN Specialist; FAMILY PHYSICIAN Family Medicine | DX: Z47.89 Encounter for other orthopedic aftercare (principal); M75.02 Adhesive capsulitis of left shoulder; Z73.6 Limitation of activities due to disability | CPT/HCPCS: 97010; 97110; 97140 ==

== ENCOUNTER 2024-08-14 21:12 | Inpatient (IN) | payer MEDICARE, OTHER, SELFPAY ==
[2024-08-14 12:51] VITALS: BP 156/74
[2024-08-14 13:19] LABS: % Basophils 0.4 % (0-2); % Eosinophils 2.4 % (0-6); % Immature Granulocytes 0.2 % (0-0.5); % Lymphocytes 20.4 % (20.5-51.1); % Monocytes 8.9 % (1.7-9.3); % Neutrophils 67.7 % (42.2-75.2); Absolute Eosinophils 0.1 10^3/uL (0-0.7); Absolute Lymphocytes 0.9 10^3/uL (1.2-3.4); Absolute Monocytes 0.4 10^3/uL (0.1-0.6); Absolute Neutrophils 3.1 10^3/uL (1.4-6.5); Hematocrit 37.7 % (37.0-47.0); Hemoglobin 12.6 g/dL (12.0-16.0); Mean Corp Hgb Conc. 33.4 g/dL (33.0-37.0); Mean Corpuscular Hgb 29.9 pg (27.0-31.0); Mean Corpuscular Volume 89.3 fL (81.0-99.0); Mean Platelet Volume 10.3 fL (7.4-10.4); Nucleated Red Blood Cells % 0 %; Platelet Count 175 10^3/uL (130-400); Red Blood Cell Count 4.22 10^6/uL (4.20-5.40); Red Cell Dist. Width 12.9 % (11.5-14.5); White Blood Cell Count 4.5 10^3/uL (4.8-10.8)
[2024-08-14 13:49] LABS: ALT (SGPT) 22 U/L (0-35); AST (SGOT) 23 U/L (14-36); Albumin 4.7 g/dl (3.5-5.0); Alkaline Phosphatase 62 U/L (38-126); Blood Urea Nitrogen 12 mg/dl (7-17); Calcium 9.6 mg/dl (8.4-10.2); Carbon Dioxide 25 mmol/L (22-30); Chloride 106 mmol/L (98-107); Glucose 100 mg/dl (70-99); Potassium 4.5 mmol/L (3.5-5.1); Sodium 136 mmol/L (135-145); Total Bilirubin 0.9 mg/dl (0.2-1.3); eGFR > 60.00
[2024-08-14 13:59] LABS: Lipase 41 U/L (23-300)
--- NOTE | 2024-08-14 16:05 | ED.GENMED ---
History of Present Illness
General
Chief Complaint: Abdominal Symptoms
Source: patient and records
Exam Limitations: none
Time Seen by Provider: 08/14/24 15:41
History of Present Illness
History of Present Illness:
69yoF with a history of hyperlipidemia, hypothyroidism, and diverticulosis presenting for a 'diverticulitis flare.' Patient reports having multiple flares this week. Symptoms initially began in March of this year and she reports numerous bouts
of diverticulitis since then. She has been following with gastroenterology and her PCP. She has an appointment with colorectal surgery scheduled for next month to discuss possible resection. She has been unable to undergo colonoscopy because of
her recurrent infections. She was prescribed multiple rounds of antibiotics and last finished antibiotics about 3 weeks ago. Her current pain started in the middle of the night. She reports a hot, burning, searing pain in her LLQ and well as low
back pain. She is also experiencing diarrhea and has had 7 episodes today. She reports chills but denies fevers. No urinary symptoms. Patient is very frustrated because she feels that no one is helping her.
Past History
Past History
ED Past Medical History: Cancer ( lymphoma), Hypercholesterolemia and Hypothyroidism
ED Past Surgical History: Appendectomy, Gynecological, Orthopedic and Other (Biopsy)
Social History
Tobacco: Non-smoker
Alcohol: Occasional
Drug: None
Personal:
Living: with family
Family History
Family History: CAD
Phy Exam
General Physical Exam
General Presentation: well appearing and no apparent distress
General Skin: warm and dry
General Habitus: normal
General Mental: alert
ENT Exam
ENT Exam: normocephalic
Pulmonary Exam
Pulmonary Exam: no respiratory distress
Gastrointestinal Exam
Gastrointestinal Exam: soft, non distended and other (+Tenderness throughout lower abdomen, worse in the LLQ. No rebound or guarding. )
Neurological Exam
Neurological Exam: alert
Dani Coma Scale
Eye Opening: Spontaneous
Verbal Response: Oriented
Motor Response: Obeys Commands
GCS Total Score: 15
Skin Exam
Skin Exam: normal color and warm/dry
Psychiatric Exam
Psychiatric Exam: normal mood/affect
Course
Orders/Labs/Results
Orders:
Orders
08/14/24 13:08
Complete Blood Count/With Diff Urgent
Comprehensive Metabolic Panel Urgent
Lipase Urgent
08/14/24 15:56
CT Abd/pel W Iv And Oral Contr Urgent
Comment:
Reason For Exam: LLQ pain
0.9% Sodium Chloride 1000 ml [Nss] 1,000 ml IV BOLUS
HYDROmorphone [Dilaudid] 0.5 mg IV NOW STA
Iohexol [Omnipaque] See Protocol PO NOW STA
Ondansetron Injectable [Zofran] 4 mg IV NOW STA
08/14/24 16:31
Lactate Level [Lactic Acid] Urgent
08/14/24 19:58
HYDROmorphone [Dilaudid] 0.5 mg IV NOW STA
Piperacillin/Tazo 3.375 Gram [Zosyn] 3.375 gram in 50 ml IV NOW
08/14/24 20:40
Admit/Transfer Patient As Directed
Co-Sign Provider:
Level of Care: Inpatient admission
Assign to:: Medical/Surgical
Physician / Group: Gilbert
Diagnosis: acute diverticulitis
Reason for Hospitalization: Acute diverticulitis with failure of outpatient tx
Expected length of stay greater than two midnights?: Yes
ELOS- Estimated Length of Stay in days: 2
I certify the patient meets the requirements for IP care: Yes
PRN Pain Medication Management As Directed
May give lesser potent ordered pain med per pt: Yes
preference::
Protocol:: Medication orders for pain may be administered in a
manner that supports deferring to patient preference
when the pt is:
- Requesting an ordered lesser potent pain medication.
Least to most potent pain medications are defined
as: acetaminophen < NSAID < tramadol < opioids
(morphine, oxycodone, hydromorphone).
- Requesting a lesser dose of the same medication IF
ORDERED.
- Requesting a less intrusive route of administration
if both routes are prescribed by the provider (PO <
IV).
08/14/24 20:41
Code Status As Directed
Resuscitation Status: Full Code
Abnormal Lab Results
08/14/24 08/14/24
13:08 16:31
WBC 4.5 L 10^3/uL
(4.8-10.8)
Absolute Lymphs (auto) 0.9 L 10^3/uL
(1.2-3.4)
Lymphocytes % 20.4 L %
(20.5-51.1)
Glucose 100 H mg/dl
(70-99)
Lactic Acid 0.6 L mmol/L
(0.7-2.0)
08/14/24 13:08
08/14/24 13:08
Vital Signs
Initial and Last Documented VS:
Initial Vital Signs
Temp Pulse Resp BP Pulse Ox
98 F 96 16 156/74 100
08/14/24 12:51 08/14/24 12:51 08/14/24 12:51 08/14/24 12:51 08/14/24 12:51
Last Documented Vital Signs
Temp Pulse Resp BP Pulse Ox
98 F 96 16 156/74 100
08/14/24 12:51 08/14/24 12:51 08/14/24 12:51 08/14/24 12:51 08/14/24 12:51
MDM/Problems Addressed
Differential Diagnosis Includes:
69yoF here with LLQ pain. Ongoing issue since March of this year. States she is having another diverticulitis flare. Multiple courses of abx without improvement and she states she cannot do this any longer. VSS. She is non-toxic appearing. No
signs of peritonitis on abdominal exam. Differential diagnosis includes but is not limited to: diverticulitis, colitis, constipation, malignancy
Initial ED plan: Labs obtained in triage and white count is normal. Will check lactate and CT abdomen with IV/PO contrast. IV Dilaudid for pain.
*Critical Care Note
Total Time (30-74mins, 75-104mins- exclusive of procedures): Not Applicable
Update Note
Update Note:
Lactate within normal limits. CT shows mild acute diverticulitis. No evidence of abscess or perforation. Patient requiring multiple doses of Dilaudid for pain control and has failed outpatient antibiotics. IV Zosyn ordered and patient admitted
for further management.
ED Attending Note
-
Portions of this chart may have been created with voice recognition software.� Occasional wrong word or��sound alike� substitutions may have occurred due to the inherent limitations of voice recognition software.
Discharge Plan
Departure
Patient Disposition: Admit
Date of Disposition: 08/14/24
Time of Disposition: 20:01
Presentation/result/management discussed w/ accepting MD/DO: Hospitalist
Discharge Problem:
Acute diverticulitis
Prescriptions:
No Action
raloxifene 60 MG tablet
60 mg PO QPM
rosuvastatin 40 MG tablet
40 mg PO HS
cholecalciferol (vitamin D3) 1,000 UNITS tablet
2,000 units PO DAILY Qty: 28 0RF
Centrum MultiGummies 80 mcg Tablet,Chewable
1 tab PO DAILY
esomeprazole magnesium [Nexium] 40 mg Capsule,Delayed Release(Dr/Ec)
40 mg PO DAILY
zolpidem [Ambien] 10 mg Tablet
10 mg PO HSPRN PRN (Reason: sleep)
ascorbic acid (vitamin C) [Vitamin C] 500 MG tablet
1,000 mg PO DAILY
magnesium citrate 100 mg Tablet
200 mg PO HS
Referrals:
Forrest Rodríguez MD [Family Provider, Family Practice]
Interventions
Interventions:
*Risk Screen - Suicide Last Done: 08/14/24 12:51
*Neglect/Abuse Screening Last Done: 08/14/24 12:51
ST-Rqnvny-Zzocwypidn Assessment Last Done: 08/14/24 16:30
Discharge Date and Time
Print Language: NIGERIEN
[2024-08-14] MEDS: OMNIPAQUE 50 ML PO (16:33)
[2024-08-14] MEDS: DILAUDID 0.5 MG IV ×2 (16:33→20:54)
[2024-08-14] MEDS: ZOFRAN 4 MG IV (16:34)
[2024-08-14] MEDS: NSS 1000 IV (16:35)
[2024-08-14 16:52] LABS: Lactic Acid 0.6 mmol/L (0.7-2.0)
--- NOTE | 2024-08-14 20:06 | HPS.HSE ---
Family Physician
-
Family Physician: Forrest Rodríguez
Chief Complaint
-
Abdominal pain
History of Present Illness
This 69-year-old female with past medical history of nongastric MALT lymphoma, irritable bowel syndrome, hyperlipidemia presenting to the emergency department with worsening left lower quadrant abdominal pain.
Patient reports longstanding history of left lower quadrant abdominal pain that patient initially started in the beginning of the year. Prior to that she was diagnosed with irritable bowel syndrome due to recurrent episodes of constipation and
diarrhea over the last 3 years. Patient reported that she initially had a severe episode of left lower quadrant pain in May with loose granular stool and nausea without vomiting. At that time she had a CT scan which showed acute diverticulitis
and she completed a 2-week course of oral Cipro and metronidazole. Immediately after this course of antibiotics the patient continued to have loose stools and abdominal pain. 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 She stated that
completed another course of antibiotics (this time Augmentin) 2-3 weeks ago. Despite this she continued to have a pain and she saw PMD about a week ago who noticed significant left lower quadrant tenderness and recommended that she follow-up with
colorectal surgery. She has a pending colonoscopy per her fire captain marine on August 24.
Patient reported that she is on a low residue diet and has been essentially unable to tolerate the regular food due to recurrence of this abdominal pain. She denies any melena. She denies hematochezia. She denies having any fevers or chills.
In the emergency department she remains afebrile temp of 98, blood pressure was 150/74 with a pulse of 96 satting 100% on room air. White count was 4.5 hemoglobin 12 and platelet count of 125. Electrolytes were all normal. BUN/creatinine was
normal. Lactic acid was normal.
LFTs were normal.
CT of the abdomen pelvis shows mild acute sigmoid diverticulitis without perforation or abscess for mission.
Medical History
Past Medical History
Past Medical History: Reports Other
Additional Past Medical History:
High Cholesterol
Lymphoma- Non gastric Malt Lymphoma
IBS
Atypical Hyperplasia Breast - genetic screen ng 12/2020
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
Covid-19 inf - 10/2022 - vaccinated and boosted
Chronic Bronchitis
Past Surgical History: Reports Other
Additional Past Surgical History:
Shoulder surgery
Appendectomy
Laparotomy BSO
Laparotomy- CHAO
LPS- BTL
Thyroidectomy
Pelvic fx repair
D+E AB Missed
NANCY
Femur fracture related to a noncancerous tumor - mia in leg.
Bladder plication with mesh - [place] - Uro[facility] 03/2017
LPS Cholecystectomy - [place] - 2021
Cataract - right - 2022, left 2022
has metal
vaginal colpopexy, colprrhaphy, pubovaginal sling 2017
Social History
Tobacco: Non-smoker
Alcohol: None
Drug: None
Personal:
Living: With Family
Family History
Family History: Not pertinent
Allergies / Home Medications
Allergies reflects when Allergies were last updated in [employer].
Home Medications with original date entered in [employer]
Allergy/Medication List:
Allergies
Allergy/AdvReac Type Severity Reaction Status Date / Time
clindamycin Allergy Unknown Verified 08/14/24 12:51
simvastatin Allergy Unknown Verified 08/14/24 12:51
Sulfa (Sulfonamide Allergy Hives Verified 08/14/24 12:51
Antibiotics) BACTRIM
sulfamethoxazole Allergy Hives Verified 08/14/24 12:51
BACTRIM
trimethoprim Allergy Hives Verified 08/14/24 12:51
BACTRIM
Home Medications
raloxifene 60 mg tablet 60 mg PO QPM 04/01/13
rosuvastatin 40 mg tablet 40 mg PO HS 06/14/21
cholecalciferol (vitamin D3) 25 mcg (1,000 unit) tablet 2,000 units PO DAILY #28 tabs 07/21/21
multivitamin with minerals-folic acid 80 mcg chewable tablet 1 tab PO DAILY 09/27/21
ascorbic acid (vitamin C) 500 mg tablet (Vitamin C) 1,000 mg PO DAILY 07/07/24
esomeprazole magnesium 40 mg capsule,delayed release (Nexium) 40 mg PO DAILY 07/07/24
zolpidem 10 mg tablet (Ambien) 10 mg PO HSPRN PRN sleep 07/07/24
magnesium citrate 100 mg tablet 200 mg PO HS 08/14/24
Review of Systems
-
Constitutional: Reports No Symptoms
EENT: Reports No Symptoms
Respiratory: Reports No Symptoms
Cardiac: Reports No Symptoms
Abdomen/GI: Reports Abdominal Pain
: Reports No Symptoms
Musculoskeletal: Reports No Symptoms
Skin: Reports No Symptoms
Neurological: Reports No Symptoms
Endocrine: Reports No Symptoms
Hematologic/Lymphatic: Reports No Symptoms
Psych: Reports No Symptoms
Physical Exam
Vital Signs
Vital Signs
Temp Pulse Resp BP Pulse Ox
98 F 96 16 156/74 100
08/14/24 12:51 08/14/24 12:51 08/14/24 12:51 08/14/24 12:51 08/14/24 12:51
Physical Exam
General: Well Developed, Well Nourished and No Apparent Distress
HEENT: NormoCephalic, Moist mucous membranes and Atraumatic
Respiratory: Clear
Cardiac: S1/S2 and Regular Rhythm; No Murmur or Rub
GI: Soft, Non Distended, Normal Bowel Sounds and Tender (LLQ, no guarding or rebound)
Rectal: Deferred by Provider
Musculoskeletal: No Clubbing, No Cyanosis and No Edema
Skin: No Rash
Neuro: Nonfocal/grossly intact
Laboratory Results
-
08/14/24 13:08
08/14/24 13:08
Laboratory Results
Lactic Acid 0.6 mmol/L (0.7-2.0) L 08/14/24 16:31
Total Bilirubin 0.9 mg/dl (0.2-1.3) 08/14/24 13:08
AST 23 U/L (14-36) 08/14/24 13:08
ALT 22 U/L (0-35) 08/14/24 13:08
Alkaline Phosphatase 62 U/L (38-126) 08/14/24 13:08
Lipase 41 U/L (23-300) 08/14/24 13:08
Data Reviewed
-
CT Scan: Report Reviewed by me
Lab Data: Labs Reviewed by me
Old Records: Reviewed
Impression/Plan
-
IMPRESSION:
Patient with either persistent or resolving acute diverticulitis. History of recurrent diverticulitis over the last 6 weeks. She has ongoing left lower quadrant abdominal pain intolerance to p.o. nausea but no vomiting or diarrhea and has no
systemic signs of infection. CT scan is consistent with mild acute diverticulitis without complications including no perforation and no abscess. There is no microperforation either. Patient has completed a course with Cipro Flagyl and also
completed a course with Augmentin despite this has continued to have symptoms. Suspect that patient may need colonoscopy and possibly surgical intervention but not imminent at this time.
PLAN:
1. Acute diverticulitis - mild uncomplicated on imaging and exam but recurrent on history and failure of outpatient tx
- admit to med/surg
- IV Zosyn started, which I will coninue for now (has been on cipro/flagyl and augmentin recently)
- stool cultures if available
- stool fecal calprotectin
- clear liquid diet for now, ADAT
- pain control and antiemeics
- she has upcoming colonoscopy on August 24, don't see urgent indication for inpatient colonoscopy
- has upcoming appointment with DR. GRAYSON as outpatient, may consider inpatient eval if not improving
DVT PPX - lovenox sq
Code status - Full Code
[2024-08-14] MEDS: ZOSYN 50 IV (20:55)
[2024-08-14 21:00] VITALS: BP 123/56
--- NOTE | 2024-08-14 22:00 | PTCARENOTE ---
Patient arrived from ED to 334 via stretcher, ambulated from stretcher to bed independently without issue. Patient is alert and awake, currently with c/o slight pain to abdomen but tolerable. Patient states that she had an increase in new pain to
b/l upper quadrants since arriving in ED, but after she was able to urinate she states the pain has been subsiding. At this time patient informed this RN that she has had issues in her recent admissions for similar issue with retention and did
require a catheter during her last admission for retention. Agreeable to bladder scan if needed. Patient states abdomen pain that brought patient to ED is better, but still there, received dose of IV Dilaudid around 2100pm in ED that is helping.
Stool cultures ordered, pending specimen. D5LR ordered, initiated per MD orders. Okay for clear liquid diet if able to tolerate, patient verbalizes understanding. Call ro in reach, at bedside, will monitor.
[2024-08-14 22:44] VITALS: BP 123/56
[2024-08-14] MEDS: CRESTOR 40 MG PO (22:44)
[2024-08-14] MEDS: D5LR 1000 IV (22:45)
[2024-08-14 23:44] VITALS: BP 136/72
[2024-08-15] MEDS: ZOSYN 50 IV ×4 (02:06→20:45)
[2024-08-15] MEDS: DILAUDID 0.5 MG IV ×3 (02:13→17:25)
[2024-08-15 06:20] VITALS: BMI 21.4
[2024-08-15 06:54] LABS: Hematocrit 34.4 % (37.0-47.0); Hemoglobin 11.6 g/dL (12.0-16.0); Mean Corp Hgb Conc. 33.7 g/dL (33.0-37.0); Mean Corpuscular Hgb 30.4 pg (27.0-31.0); Mean Corpuscular Volume 90.3 fL (81.0-99.0); Mean Platelet Volume 10.4 fL (7.4-10.4); Platelet Count 161 10^3/uL (130-400); Red Blood Cell Count 3.81 10^6/uL (4.20-5.40); White Blood Cell Count 2.7 10^3/uL (4.8-10.8)
[2024-08-15 07:25] VITALS: BP 131/68
[2024-08-15 07:40] LABS: Blood Urea Nitrogen 9 mg/dl (7-17); Calcium 8.7 mg/dl (8.4-10.2); Carbon Dioxide 28 mmol/L (22-30); Chloride 108 mmol/L (98-107); Estimated Creatinine Clearance 65 ml/min; Glucose 133 mg/dl (70-99); Potassium 4.1 mmol/L (3.5-5.1); Sodium 140 mmol/L (135-145); eGFR > 60.00
[2024-08-15] MEDS: PROTONIX 40 MG PO (08:37)
--- NOTE | 2024-08-15 13:19 | W.PN.HOSP.TC ---
Today's Communication/Plan
-
Assessment / Plan
Assessment / Plan
NAD
Scleral Anicteric
MMM
No JVD
CTABL
RRR, S1/S2
Soft, NT, ND, BS+
Warm, Dry
AAOx3
Calm
Acute diverticulitis - mild uncomplicated on imaging and exam but recurrent on history and failure of outpatient tx
- admit to med/surg
- IV Zosyn continue
- stool cultures if available
- stool fecal calprotectin
- clear liquid diet for now, ADAT
- pain control and antiemeics
-As this is recurrent diverticulitis will consult surgery
- she has upcoming colonoscopy on August 24, don't see urgent indication for inpatient colonoscopy
- has upcoming appointment with DR. GRAYSON as outpatient, may consider inpatient eval if not improving
Continue vitamin D supplementation for history of vitamin D deficiency
GERD
Continue PPI
Hyperlipidemia
Continue Crestor
Anticipated Discharge: > 48 hours
Subjective/Interval History
-
Date of Service: August 15, 2024
Seen and examined. Continues to have some tenderness in the left lower quadrant. No acute overnight events.
No episodes of diarrhea since yesterday which was liquid brown/coffee-ground stools
Objective Data
-
Labs:
Laboratory Results
08/15/24
06:21
WBC 2.7 L
Hgb 11.6 L
Hct 34.4 L
Plt Count 161
Sodium 140
Potassium 4.1
Chloride 108 H
Carbon Dioxide 28
BUN 9
Creatinine 0.8
Glucose 133 H
Calcium 8.7
Vital Signs:
Vital Signs
Temp Pulse Resp BP Pulse Ox
97.9 F 71 16 131/68 99
08/15/24 07:25 08/15/24 07:25 08/15/24 07:25 08/15/24 07:25 08/15/24 07:25
I&O
08/14/24 08/15/24 08/16/24
06:59 06:59 06:59
Intake Total 1740 / 1740
Balance 1740 / 1740
--- NOTE | 2024-08-15 14:39 | CON.CRS ---
Addendum entered and electronically signed by Aayush Pantoja MD 08/16/24 10:38:
I saw and examined the patient.
The Flap Maker's note was reviewed and I agree with the note.
Comment: Pt seen and evaluated at bedside today. She feels about the same. AFVSS. TTP to LLQ on exam with slight crepitus. Leukopenia improved. ould cont cld today and IV abx. For CRS evaluation tomorrow. NPO @ [facility] to preserve option of surgery if
indicated.
Original Note:
Consultation
-
Date/Time Consultation Requested: 08/15/24931
Date/Time Consultation Performed: 08/15/24 8435
Requesting Provider: Mihai Sawant
Performing Provider: Nghia Pantoja
Reason for Consultation: diverticulitis
Medical History
-
Chief Complaint: LLQ pain
History of Present Illness:
Ms Field is a 69 yo female with a h/o c-dif, endometriosis with lap to open abdominal hysterectomy, laparotomy for salpingo-oophorectomy x2, vaginal colpopexy with colorrhaphy and pubovaginal sling, appendectomy, and cholecystectomy who presented
with persistent waxing and waning LLQ pain which recently worsened. She does have a history of IBS and struggles with variations of constipation and diarrhea but since March her bowels have been much worse with predominantly diarrhea. In mid
June, these symptoms became accompanied by pain to the LLQ causing her to present through the ED for evaluation with CT imaging at that time demonstrating sigmoid diverticulitis. She was placed on antibiotics (cipro/flagyl x2 weeks) and discharged
to home. She presented about one week later for urinary retention through the ED and straight cathed and provided with an enema d/t constipation with relief. She has been following closely as an outpatient with Dr. Goetz and her PCP since that
time with waxing and waning symptoms with CT imaging on 07/20/24 as an outpatient again demonstrating sigmoid diverticulitis for which she was placed on a course of Augmentin. She was scheduled to have a follow up colonoscopy later this month with
Dr. Goetz with her last colonoscopy prior to this in 2021 with polypectomy done at that time. She notes that she had never really felt complete relief although her symptoms improved while on ABX. She presents again for evaluation as pain to the
LLQ has been worsening. At home she notes chills and cold sweats but denies fever. She notes poor appetite but no nausea or vomiting. She has been having liquid watery granular and mucoid stools multiple times today and yesterday. She denies bright
red, maroon or tarry stools but does feel her stools look like there are coffee grounds in them. On exam, the LLQ tender to very light palpation.
Past Medical History
Past Medical History: Cancer (skin, Non gastric Malt Lymphoma ), Hypercholesterolemia, Hypothyroidism and Other (IBS, C-diff)
Past Surgical History: Appendectomy, Cholecystectomy (2021 [facility]), Gynecological (Lap tubal ligation, lap to open abdominal hysterectomy followed by open salpingooophorectomy x2 each about 6 months apart for complications of endometriosis),
Orthopedic (pelvic fx repair, mia in femur, shoulder repair), Urological (vaginal colpopexy with colorrhaphy and pubovaginal sling (Dr. Hennessy)) and Other (thyroidectomy, BL cataract)
Social History
Tobacco: Non-Smoker
Alcohol: None
Personal:
Living: With Family
Family History
Family History: Cancer (colorectal cancers in sister and maternal uncles)
Allergies / Home Medications
Allergy/AdvReac Type Severity Reaction Status Date / Time
clindamycin Allergy Unknown Verified 08/14/24 12:51
simvastatin Allergy Unknown Verified 08/14/24 12:51
Sulfa (Sulfonamide Allergy Hives Verified 08/14/24 12:51
Antibiotics) BACTRIM
sulfamethoxazole Allergy Hives Verified 08/14/24 12:51
BACTRIM
trimethoprim Allergy Hives Verified 08/14/24 12:51
BACTRIM
�Medication �Instructions �Recorded �Confirmed �Type
raloxifene 60 mg tablet 60 mg PO QPM Hormonal Agent 04/01/13 08/14/24 History
rosuvastatin 40 mg tablet 40 mg PO HS High Cholesterol 06/14/21 08/14/24 History
cholecalciferol (vitamin D3) 25 2,000 units PO DAILY #28 tabs 07/21/21 08/14/24 Rx
mcg (1,000 unit) tablet
multivitamin with minerals-folic 1 tab PO DAILY Supplement 09/27/21 08/14/24 History
acid 80 mcg chewable tablet
ascorbic acid (vitamin C) 500 mg 1,000 mg PO DAILY Supplement 07/07/24 08/14/24 History
tablet (Vitamin C)
esomeprazole magnesium 40 mg 40 mg PO DAILY Gastrointestinal 07/07/24 08/14/24 History
capsule,delayed release (Nexium) Issue
zolpidem 10 mg tablet (Ambien) 10 mg PO HSPRN PRN sleep 07/07/24 08/14/24 History
magnesium citrate 100 mg tablet 200 mg PO HS Electrolyte Repletion 08/14/24 08/14/24 History
Review of Systems
-
History Source: Patient and Family
All other systems: Negative unless noted
A 10 point review of systems was completed, and was negative except as per HPI.
Physical Exam
Vital Signs
Temp 97.9 F 08/15/24 07:25
Pulse 71 08/15/24 07:25
Resp Rate 16 08/15/24 07:25
Blood pressure 131/68 08/15/24 07:25
SaO2 99 08/15/24 07:25
08/14/24 08/15/24 08/16/24
06:59 06:59 06:59
Actual Weight 63.73 kg
Body Mass Index (BMI) 21.4
Lab Results / Allergies
08/15/24 06:21
08/15/24 06:21
WBC 2.7 10^3/uL (4.8-10.8) L 08/15/24 06:21
Hgb 11.6 g/dL (12.0-16.0) L 08/15/24 06:21
Hct 34.4 % (37.0-47.0) L 08/15/24 06:21
Plt Count 161 10^3/uL (130-400) 08/15/24 06:21
Abs Immat Gran (auto) 0.0 10^3/uL (0-0.05) 08/14/24 13:08
Neutrophils % 67.7 % (42.2-75.2) 08/14/24 13:08
Allergy/AdvReac Type Severity Reaction Status Date / Time
clindamycin Allergy Unknown Verified 08/14/24 12:51
simvastatin Allergy Unknown Verified 08/14/24 12:51
Sulfa (Sulfonamide Allergy Hives Verified 08/14/24 12:51
Antibiotics) BACTRIM
sulfamethoxazole Allergy Hives Verified 08/14/24 12:51
BACTRIM
trimethoprim Allergy Hives Verified 08/14/24 12:51
BACTRIM
Physical Exam
General: Well Developed and Well Nourished
HEENT: Moist Mucous Membranes
Respiratory: Non Labored Respirations
GI: Soft, Non Distended and Tender (severe to LLQ with voluntary guarding)
Skin: Warm and Dry
Neuro: Awake, Alert and AO x 3
Psych: Calm
Data Reviewed
-
CT Scan: Image Personally Visualized and interpreted, Report Reviewed by me, Discussed with Physician, Discussed with Patient and Discussed with Family
Labs: Labs Reviewed by me, Discussed with Physician, Discussed with Patient and Discussed with Family
Old Records: Reviewed
Assessment / Plan
-
69 yo female with long intraabdominal surgical history and IBS with last colonoscopy in 2022 presenting with smouldering diverticulitis first noted on CT imaging on 06/30/24 and now s/p 2 outpatient courses of antibiotics with persistent symptoms.
She presented through the ED yesterday with worsening LLQ pain and was admitted for management. CT imaging this presentation again demonstrating sigmoid diverticulitis. No abscess or free air noted. No evidence of bowel perforation, threat or
compromise. Still with significant focal tenderness present to the LLQ. VSS. Afebrile with mild leukopenia. H/O c-diff and currently actively having diarrhea. C-diff stool study is pending.
--C/w IV abx with Zosyn
--Ok to continue clears, would not advance further today
--Trend labs/exam
--No plans for emergent surgery today, will follow closely
[2024-08-15 15:14] VITALS: BP 118/59
--- NOTE | 2024-08-15 16:20 | PTCARENOTE ---
patient medicated with PRN Dilaudid for pain this am. has LLQ tenderness with guarding. continent of brown liquid to soft stool, tolerating clear liquids, independent in room, vss, will continue to monitor.
[2024-08-15] MEDS: EVISTA 60 MG PO (17:19)
[2024-08-15] MEDS: LOVENOX 40 MG SC (17:20)
[2024-08-15] MEDS: CRESTOR 40 MG PO (20:44)
[2024-08-15 23:24] VITALS: BP 121/65
[2024-08-16] MEDS: ZOSYN 50 IV ×4 (02:37→20:06)
[2024-08-16] MEDS: DILAUDID 0.5 MG IV ×2 (02:41→20:06)
[2024-08-16 04:34] LABS: Mean Corp Hgb Conc. 34.3 g/dL (33.0-37.0); Mean Corpuscular Hgb 30.6 pg (27.0-31.0); Mean Corpuscular Volume 89.3 fL (81.0-99.0); Mean Platelet Volume 10.3 fL (7.4-10.4); Platelet Count 159 10^3/uL (130-400); Red Blood Cell Count 3.92 10^6/uL (4.20-5.40); Red Cell Dist. Width 12.9 % (11.5-14.5); White Blood Cell Count 3.9 10^3/uL (4.8-10.8)
[2024-08-16 05:03] LABS: Blood Urea Nitrogen 6 mg/dl (7-17); Calcium 8.8 mg/dl (8.4-10.2); Carbon Dioxide 25 mmol/L (22-30); Chloride 109 mmol/L (98-107); Estimated Creatinine Clearance 74 ml/min; Glucose 99 mg/dl (70-99); Potassium 3.8 mmol/L (3.5-5.1); Sodium 140 mmol/L (135-145); eGFR > 60.00
[2024-08-16 07:00] VITALS: BP 119/64
[2024-08-16] MEDS: PROTONIX 40 MG PO (07:45)
[2024-08-16] MEDS: ROXICODONE 5 MG PO ×2 (07:57→19:16)
--- NOTE | 2024-08-16 11:05 | W.PN.HOSP.TC ---
Today's Communication/Plan
-
Assessment / Plan
Assessment / Plan
NAD
Scleral Anicteric
MMM
No JVD
CTABL
RRR, S1/S2
Soft, NT, ND, BS+
Warm, Dry
AAOx3
Calm
Acute diverticulitis - mild uncomplicated on imaging and exam but recurrent on history and failure of outpatient tx
- admit to med/surg
- IV Zosyn continue
- stool cultures if available
- stool fecal calprotectin
- clear liquid diet for now, ADAT
- pain control and antiemeics
- Recurrent diverticulitis on Zosyn without significant improvement likely will require bowel resection. Awaiting recommendations from surgery.
- she has upcoming colonoscopy on August 24, don't see urgent indication for inpatient colonoscopy
- has upcoming appointment with DR. GRAYSON as outpatient, may consider inpatient eval if not improving
Continue vitamin D supplementation for history of vitamin D deficiency
GERD
Continue PPI
Hyperlipidemia
Continue Crestor
Anticipated Discharge: > 48 hours
Subjective/Interval History
-
Date of Service: August 16, 2024
Was seen and examined. Overnight again with loose watery bowel movement brown-yellow. Again with pain overnight that was improving.
Surgery considering may require OR for resection. However no definitive answer provided.
Objective Data
-
Labs:
Laboratory Results
08/16/24
04:07
WBC 3.9 L
Hgb 12.0
Hct 35.0 L
Plt Count 159
Sodium 140
Potassium 3.8
Chloride 109 H
Carbon Dioxide 25
BUN 6 L
Creatinine 0.7
Glucose 99
Calcium 8.8
Vital Signs:
Vital Signs
Temp Pulse Resp BP Pulse Ox
98.1 F 62 16 119/64 100
08/16/24 07:00 08/16/24 07:00 08/16/24 07:00 08/16/24 07:00 08/16/24 07:00
I&O
08/15/24 08/16/24 08/17/24
06:59 06:59 06:59
Intake Total 1740 / 1740 705 / 705
Balance 1740 / 1740 705 / 705
--- NOTE | 2024-08-16 13:33 | CON.ID ---
Consultation
-
Date/Time Consultation Requested: 08/16/2024 0916
Date/Time Consultation Performed: 08/16/2024 1221
Requesting Provider: Chiquita Agrawal
Performing Provider: Dr. Kuo
Reason for Consultation: Diverticulitis
Chief Complaint / Past History
History of Present Illness
Yasemin Field is a 69-year-old female being evaluated at the request of Chiquita Agrawal regarding diverticulitis. History is obtained from chart review, along with patient interview.
The patient reports that she has had issues with abnormal stool for the past 2 years or so, and has been followed in the outpatient setting by GI
She reports she developed abdominal discomfort in May, and was seen in the ER on 06/30 for abdominal pain. At that time, she was diagnosed with diverticulitis and discharged course of ciprofloxacin and metronidazole. She says that despite the
completion of antibiotic therapy, she still had abdominal pain following that. Several weeks ago she again had worsening abdominal discomfort and she was prescribed a course of Augmentin.
She presents back to the ER on 08/14 secondary to worsening belly pain. She notes that the pain at worst is approximately 8/10, and often is relieved/diminished by bowel movements. Currently her pain is 5/10. She denies any outpatient fevers, but
notes intermittent chills.
Past History
Additional Past Medical History:
HLD
Hypothyroidism
Lymphoma
Additional Past Surgical History:
Appendectomy
NANCY
Oophorectomy
Cholecystectomy
Femur surgery
Allergy History:
clindamycin Allergy (Verified 08/14/24 12:51)
Unknown
simvastatin Allergy (Verified 08/14/24 12:51)
Unknown
Sulfa (Sulfonamide Antibiotics) Allergy (Verified 08/14/24 12:51)
Hives BACTRIM
sulfamethoxazole Allergy (Verified 08/14/24 12:51)
Hives BACTRIM
trimethoprim Allergy (Verified 08/14/24 12:51)
Hives BACTRIM
Medications Reviewed: Yes
Current Antibiotics:
Zosyn 3.375 g IV every 6 hours
Social History
Tobacco: Non-Smoker
Alcohol: None
Drug: None
Personal:
Living: With Family
Employment: Retired
Family History
Family History: Not Pertinent
Review of Systems
Vital Signs
Temp Pulse Resp BP Pulse Ox
98.1 F 62 16 119/64 100
08/16/24 07:00 08/16/24 07:00 08/16/24 07:00 08/16/24 07:00 08/16/24 07:00
Physical Exam
Physical Exam
Constitutional: No Acute Distress, Comfortable and Non-toxic
Eyes: No Conjunctival Hemorrhage and Sclera Anicteric
Oral: No Thrush and No Ulcers
Cardiovascular: Regular Rate and S1/S2; Negative S3/S4
Pulmonary: Clear; Negative Wheezes, Rales or Rhonchi
Gastrointestinal: Soft, Tender, Non Distended, Normal Bowel Sounds, No Rebound and No Guarding
Genito-Urinary: Negative Lomeli
Extremities: Negative Edema, Cyanosis or Erythema
Skin: Warm and Dry; Negative Rash or Jaundice
Neurological: Awake and Alert
Psychological: Calm
.
Lab / Diagnostic Study Results
08/16/24 04:07
08/16/24 04:07
Abs Immat Gran (auto) 0.0 10^3/uL (0-0.05) 08/14/24 13:08
Absolute Neuts (auto) 3.1 10^3/uL (1.4-6.5) 08/14/24 13:08
Absolute Lymphs (auto) 0.9 10^3/uL (1.2-3.4) L 08/14/24 13:08
Absolute Monos (auto) 0.4 10^3/uL (0.1-0.6) 08/14/24 13:08
Absolute Basos (auto) 0.0 10^3/uL (0-0.2) 08/14/24 13:08
Immature Gran % 0.2 % (0-0.5) 08/14/24 13:08
Neutrophils % 67.7 % (42.2-75.2) 08/14/24 13:08
Lymphocytes % 20.4 % (20.5-51.1) L 08/14/24 13:08
Monocytes % 8.9 % (1.7-9.3) 08/14/24 13:08
Eosinophils % 2.4 % (0-6) 08/14/24 13:08
Basophils % 0.4 % (0-2) 08/14/24 13:08
Lactic Acid 0.6 mmol/L (0.7-2.0) L 08/14/24 16:31
C-Reactive Protein 9.70 mg/L (0.0-10.00) 08/16/24 04:07
Microbiology Results
Micro:
08/15/24 14:26 C. difficile GDH Antigen & Toxins - Final
Feces/Stool Negative for toxigenic C.difficile
Imaging:
08/14/2024 CT abdomen/pelvis with contrast: Mild colonic diverticulosis. Small amount of inflammatory fat stranding about a diverticulum in the sigmoid colon most suggestive of mild sigmoid diverticulitis. No bowel obstruction. No extraluminal
fluid. Please see full dictation for additional detail.
Assessment / Plan
Acute recurrent sigmoid diverticulitis
Subjective chills
Diarrhea
HLD
Hypothyroidism
Lymphoma
Recommendations:
Continue with empiric Zosyn for the present.
Given history of recurrence on outpatient oral therapy, patient may require a course of IV antibiotics via home infusion.
Patient to be evaluated by CRS tomorrow to decide on further course of therapy.
Monitor white count and temperature curve.
Monitor pain level.
[2024-08-16 15:37] VITALS: BP 106/63
[2024-08-16] MEDS: EVISTA 60 MG PO (16:39)
[2024-08-16] MEDS: LOVENOX 40 MG SC (16:39)
[2024-08-16] MEDS: CRESTOR 40 MG PO (22:51)
[2024-08-16] MEDS: AMBIEN 10 MG PO (22:51)
[2024-08-16] MEDS: NSS 1000 IV (22:54)
[2024-08-16 23:28] VITALS: BP 125/71
[2024-08-17] MEDS: ZOSYN 50 IV ×4 (02:18→20:36)
[2024-08-17 06:17] LABS: Hematocrit 34.9 % (37.0-47.0); Hemoglobin 11.9 g/dL (12.0-16.0); Mean Corp Hgb Conc. 34.1 g/dL (33.0-37.0); Mean Corpuscular Hgb 30.3 pg (27.0-31.0); Mean Corpuscular Volume 88.8 fL (81.0-99.0); Mean Platelet Volume 10.3 fL (7.4-10.4); Platelet Count 160 10^3/uL (130-400); Red Blood Cell Count 3.93 10^6/uL (4.20-5.40); Red Cell Dist. Width 12.6 % (11.5-14.5); White Blood Cell Count 2.9 10^3/uL (4.8-10.8)
[2024-08-17 06:34] LABS: Blood Urea Nitrogen 5 mg/dl (7-17); Calcium 8.8 mg/dl (8.4-10.2); Carbon Dioxide 24 mmol/L (22-30); Chloride 111 mmol/L (98-107); Estimated Creatinine Clearance 74 ml/min; Glucose 95 mg/dl (70-99); Potassium 4.1 mmol/L (3.5-5.1); Sodium 139 mmol/L (135-145); eGFR > 60.00
[2024-08-17 07:34] VITALS: BP 115/64
[2024-08-17] MEDS: PROTONIX 40 MG PO (08:33)
--- NOTE | 2024-08-17 09:03 | W.PN.CRS1 ---
Documented by User: Kathy Spaulding PA-C 08/17/24 09:30
Today's Communication / Plan
-
IV antibiotics
remain npo
no plans for surgery today
Assessment/Plan
-
69 yo female with long intraabdominal surgical history and IBS with last colonoscopy in 2022 presenting with smouldering diverticulitis first noted on CT imaging on 06/30/24 and now s/p 2 outpatient courses of antibiotics with persistent symptoms.
She presented through the ED yesterday with worsening LLQ pain and was admitted for management. CT imaging this presentation again demonstrating sigmoid diverticulitis. No abscess or free air noted. No evidence of bowel perforation, threat or
compromise. Still with significant focal tenderness present to the LLQ.
Vitals: normal
WBC: 2.9 (3.9)
--C/w IV abx with Zosyn per ID, possible IV antibiotics as an outpatient
--Remain NPO given tenderness
--Trend labs/exam
--No plans for emergent surgery today, will follow closely. Discussed option of outpatient elective surgery. She will consider this option.
Subjective Data
Subjective Data
Date of Service: August 17, 2024
Patient states she continues to have LLQ pain. Her pain is a 6/10 which is better than 'uncontrolled' when she came into the hospital. She states she has been nauseous for months and vomited a few times. She had a bad night overnight and took an
ambien, and she had an episode of incontinence overnight because she did not wake up to have a bowel movement. She states she goes to the bathroom at least 10-20 times a day, and often times her stools are loose and frequent. Her LLQ abdominal pain
has been going on since March and she has gone to the Er several times due to this pain and was prescribed augmentin a few weeks ago. When she came into the ER this current time, she was not on any antibiotics. She has had multiple abdominal
surgeries in the past, including removal of her ovaries, endometriosis, adhesions x 2, gallbladder, and appendix.
Objective Data
-
Vital Signs
Temp Pulse Resp BP Pulse Ox
98.2 F 65 16 115/64 98
08/17/24 07:34 08/17/24 07:34 08/17/24 07:34 08/17/24 07:34 08/17/24 07:34
Intake & Output
08/16/24 08/17/24 08/18/24
06:59 06:59 06:59
Intake Total 705 / 705 1200 / 1200
Balance 705 / 705 1200 / 1200
Intake:
Oral fluids 480 / 480 1200 / 1200
IV fluids (Total) 125 / 125
IV piggybacks 100 / 100
Other:
Number of approximated MODERATE 3
amounts of urine
Lab Results
08/17/24 05:23
08/17/24 05:23
Physical Exam
-
General: No Acute Distress and AOx3
Abdomen: Soft, Non Distended and Tender (LLQ- mild to moderate)
Skin: Warm and Dry

Documented by User: Josue Diggs MD 08/17/24 11:06
Assessment/Plan
-
69 yo female with PMH of MALT lymphoma, IBS, HLD, pelvic floor dysfunction (s/p PFPT last appointment s she had significant improvement in the obstructive symptoms), pelvic organ prolapse s/p sacrocolpopexy with bladder sling in 2017 at
[place], multiple prior abdominal surgeries including [facility] for SBO, who presents with refractory LLQ abdominal pain; her abdominal pain started back in March but got significantly worse in May; this was associated with frequent loose stools that
she described as coffee-ground, but not obviously bloody; she had a CT on 06/30 which showed acute uncomplicated diverticulitis with mild to moderate constipation; she was treated with 2 weeks of Cipro and Flagyl, but failed to improve; a repeat CT
scan was done 07/20, which showed persistent mild acute diverticulitis with some constipation; she was switched to Augmentin for 2 to 3 weeks; again, her symptoms did not improve; she has been off of the antibiotics for about 2 weeks and the loose
stools and abdominal pain continued to worsen, so she presented again to the ED; last colonoscopy in 2021 by [facility], which showed a cecal TA, hemorrhoids and random biopsies which were negative; in the ED, afebrile, VSS, CT showing mild acute
diverticulitis, WBC 4.5
Vitals: normal
WBC: 2.9 (3.9)
--C/w IV abx with Zosyn per ID, possible IV antibiotics as an outpatient
--Remain NPO given tenderness
--Trend labs/exam
--No plans for emergent surgery today, will follow closely. Discussed option of outpatient elective surgery. She will consider this option.
[2024-08-17] MEDS: ROXICODONE 5 MG PO ×2 (09:14→19:14)
--- NOTE | 2024-08-17 09:25 | W.PN.HOSP.TC ---
Today's Communication/Plan
-
f/w surgery recommendations
IVF
IV Abx
Assessment / Plan
Assessment / Plan
Physical Exam
General: Well Developed and Well Nourished
HEENT: Moist Mucous Membranes, Anicteric and PERRLA
Respiratory: Clear to Auscultation and Non-Labored Respirations; Negative Wheezes, Rales or Rhonchi
Cardiac: Regular Rhythm and S1/S2;
GI: Soft, Nontender, Nondistended and Normal Bowel Sounds
Musculoskeletal: No joint swelling. �Negative Edema, Left Lower Extrem
Skin: Warm, Dry and no rash
Neuro: Awake and AO x 3, non-focal exam.
Psych: Calm
A/p:
# Acute diverticulitis - mild uncomplicated on imaging and exam but recurrent on history and failure of outpatient tx
Less pain but reports tenderness in the area.
- IV Zosyn continue
- stool cultures if available
- stool fecal calprotectin
- Negative C Diff
- pain control and antiemetics
- Appreciate colorectal surgery input.
Continue vitamin D supplementation for history of vitamin D deficiency
GERD
Continue PPI
Hyperlipidemia
Continue Crestor
Total time spent to see the patient, examine the patient, review data and lab result, discuss treatment plan with patient, nursing staff around 55 minutes
Anticipated Discharge: > 48 hours
Subjective/Interval History
-
Date of Service: August 17, 2024
Less abdominal pain
Tolerating liquids
Objective Data
-
Labs:
Laboratory Results
08/17/24
05:23
WBC 2.9 L
Hgb 11.9 L
Hct 34.9 L
Plt Count 160
Sodium 139
Potassium 4.1
Chloride 111 H
Carbon Dioxide 24
BUN 5 L
Creatinine 0.7
Glucose 95
Calcium 8.8
Vital Signs:
Vital Signs
Temp Pulse Resp BP Pulse Ox
98.2 F 65 16 115/64 98
08/17/24 07:34 08/17/24 07:34 08/17/24 07:34 08/17/24 07:34 08/17/24 07:34
I&O
08/16/24 08/17/24 08/18/24
06:59 06:59 06:59
Intake Total 705 / 705 1200 / 1200
Balance 705 / 705 1200 / 1200
[2024-08-17 10:51] VITALS: BMI 21.4
--- NOTE | 2024-08-17 10:52 | W.PN.ID1 ---
Date of Service
Date of Service: August 17, 2024
Today's Communication
Continue abx.
Assessment / Plan
Acute recurrent sigmoid diverticulitis
Subjective chills
Diarrhea
HLD
Hypothyroidism
Lymphoma
Recommendations:
Continue with empiric Zosyn for the present.
Given history of recurrence on outpatient oral therapy, patient may require a course of IV antibiotics via home infusion.
Monitor white count and temperature curve.
Monitor pain level.
Chief Complaint
-: Other (Diverticulitis)
Subjective / Review of Systems
Patient seen and examined. Notes ongoing abdominal discomfort
Vital Signs / Physical Exam
Vital Signs
Vital Signs
Temp Pulse Resp BP Pulse Ox
98.2 F 65 16 115/64 98
08/17/24 07:34 08/17/24 07:34 08/17/24 07:34 08/17/24 07:34 08/17/24 07:34
Physical Exam
Constitutional: No Acute Distress, Comfortable and Non-toxic
Eyes: Sclera Anicteric
Cardiovascular: S1/S2; Negative S3/S4
Pulmonary: Clear and Non Labored
Gastrointestinal: Soft, Tender, Non Distended, Normal Bowel Sounds, No Rebound and No Guarding
Neurological: Awake and Alert
Psychological: Calm
Objective Data
Lab Data
Lab Results
08/17/24 05:23
08/17/24 05:23
Estimated Creat Clear 74 ml/min 08/17/24 05:23
Lactic Acid 0.6 mmol/L (0.7-2.0) L 08/14/24 16:31
Total Bilirubin 0.9 mg/dl (0.2-1.3) 08/14/24 13:08
AST 23 U/L (14-36) 08/14/24 13:08
ALT 22 U/L (0-35) 08/14/24 13:08
Alkaline Phosphatase 62 U/L (38-126) 08/14/24 13:08
C-Reactive Protein 9.70 mg/L (0.0-10.00) 08/16/24 04:07
Most recent labs reviewed.
Micro Results:
08/15/24 14:26 C. difficile [facility]DH Antigen & Toxins - Final
Feces/Stool Negative for toxigenic C.difficile
Imaging:
08/14/2024 CT abdomen/pelvis with contrast: Mild colonic diverticulosis. Small amount of inflammatory fat stranding about a diverticulum in the sigmoid colon most suggestive of mild sigmoid diverticulitis. No bowel obstruction. No extraluminal
fluid. Please see full dictation for additional detail.
[2024-08-17] MEDS: NSS 1000 IV (11:09)
--- NOTE | 2024-08-17 11:15 | CM ---
Patient seen at bedside with on . Patient stated that she lives in a one story with loft [address]+ community with her . Patient PCP is Dr. Maciel and she uses the [facility] in [place], No DME. Patient stated that she did not need any VN or
discharge supports. Patient does not have any DME at home. CM will continue to follow for discharge planning needs.
Plan; home with no needs anticipated.
[2024-08-17 15:38] VITALS: BP 135/66
[2024-08-17] MEDS: LOVENOX 40 MG SC (18:03)
[2024-08-17] MEDS: EVISTA 60 MG PO (18:03)
[2024-08-17] MEDS: DILAUDID 0.5 MG IV (20:46)
[2024-08-17] MEDS: CRESTOR 40 MG PO (21:29)
[2024-08-17] MEDS: AMBIEN 10 MG PO (22:53)
[2024-08-17 23:24] VITALS: BP 138/75
[2024-08-18] MEDS: NSS 1000 IV ×2 (03:09→19:34)
[2024-08-18] MEDS: ZOSYN 50 IV ×4 (03:09→20:44)
[2024-08-18 07:00] VITALS: BP 134/77
[2024-08-18] MEDS: PROTONIX 40 MG PO (07:51)
--- NOTE | 2024-08-18 09:16 | W.PN.HOSP.TC ---
Today's Communication/Plan
-
f/w surgery recommendations, currently IVF, IV Zosyn
Assessment / Plan
Assessment / Plan
Physical Exam
General: Well Developed and Well Nourished
HEENT: Moist Mucous Membranes, Anicteric and PERRLA
Respiratory: Clear to Auscultation and Non-Labored Respirations; Negative Wheezes, Rales or Rhonchi
Cardiac: Regular Rhythm and S1/S2;
GI: Soft, Nontender, Nondistended and Normal Bowel Sounds
Musculoskeletal: No joint swelling. �Negative Edema, Left Lower Extrem
Skin: Warm, Dry and no rash
Neuro: Awake and AO x 3, non-focal exam.
Psych: Calm
A/p:
# Acute diverticulitis - mild uncomplicated on imaging and exam but recurrent on history and failure of outpatient tx
Less pain & tenderness in the area.
No fever or chills. No nausea.
- Negative C Diff
- pain control and antiemetics
- Appreciate colorectal surgery & ID input.
# Continue vitamin D supplementation for history of vitamin D deficiency
GERD
Continue PPI
Hyperlipidemia
Continue Crestor
Total time spent to see the patient, examine the patient, review data and lab result, discuss treatment plan with patient, nursing staff around 55 minutes
Anticipated Discharge: > 48 hours
Subjective/Interval History
-
Date of Service: August 18, 2024
She reports less pain
Objective Data
-
Vital Signs:
Vital Signs
Temp Pulse Resp BP Pulse Ox
97.8 F 92 17 134/77 95
08/17/24 23:24 08/18/24 07:00 08/18/24 07:00 08/18/24 07:00 08/18/24 07:00
I&O
08/17/24 08/18/24 08/19/24
06:59 06:59 06:59
Intake Total 1200 / 1200 1060 / 1060
Balance 1200 / 1200 1060 / 1060
--- NOTE | 2024-08-18 10:07 | W.PN.CRS1 ---
Today's Communication / Plan
-
clears
holding on surgery for now
Assessment/Plan
-
69 yo female with PMH of MALT lymphoma, IBS, HLD, pelvic floor dysfunction (s/p PFPT last appointment she had significant improvement in the obstructive symptoms), pelvic organ prolapse s/p sacrocolpopexy with bladder sling in 2018 at
[facility], multiple prior abdominal surgeries including [facility]AO for SBO, who presents with refractory LLQ abdominal pain; her abdominal pain started back in March but got significantly worse in May; this was associated with frequent loose stools that
she described as coffee-ground, but not obviously bloody; she had a CT on 06/30 which showed acute uncomplicated diverticulitis with mild to moderate constipation; she was treated with 2 weeks of Cipro and Flagyl, but failed to improve; a repeat CT
scan was done 07/20, which showed persistent mild acute diverticulitis with some constipation; she was switched to Augmentin for 2 to 3 weeks; again, her symptoms did not improve; she has been off of the antibiotics for about 2 weeks and the loose
stools and abdominal pain continued to worsen, so she presented again to the ED; last colonoscopy in 2021 by [facility], which showed a cecal TA, hemorrhoids and random biopsies which were negative; in the ED, afebrile, VSS, CT showing mild acute
diverticulitis, WBC 4.5
Vitals: normal
no labs today
--C/w IV abx with Zosyn per ID, possible IV antibiotics as an outpatient
--Okay to advance to clear liquids
--Trend labs/exam
--No plans for emergent surgery today, will follow closely. Discussed option of outpatient elective surgery. She will consider this option (she is going on a cruise in 2 weeks).
Subjective Data
Subjective Data
Date of Service: August 18, 2024
Patient states she is efeling a litle better today. She had about 15 loose stools since yesterday. She is hungry. She had some nausea but not currently.
Objective Data
-
Vital Signs
Temp Pulse Resp BP Pulse Ox
97.8 F 92 17 134/77 95
08/17/24 23:24 08/18/24 07:00 08/18/24 07:00 08/18/24 07:00 08/18/24 07:00
Intake & Output
08/17/24 08/18/24 08/19/24
06:59 06:59 06:59
Intake Total 1200 / 1200 1060 / 1060
Balance 1200 / 1200 1060 / 1060
Intake:
Oral fluids 1200 / 1200
IV fluids (Total) 960 / 960
IV piggybacks 100 / 100
Other:
Number of approximated MODERATE 3
amounts of urine
Number of approximated LARGE 1
amounts of urine
Lab Results
08/17/24 05:23
08/17/24 05:23
Physical Exam
-
General: No Acute Distress and AOx3
Abdomen: Soft, Non Distended and Tender (mild LLQ)
Skin: Warm and Dry
Incision: Clear, Dry, Intact
[2024-08-18 15:21] VITALS: BP 128/66
[2024-08-18] MEDS: ROXICODONE 5 MG PO ×2 (15:21→20:48)
[2024-08-18] MEDS: EVISTA 60 MG PO (17:59)
[2024-08-18] MEDS: LOVENOX 40 MG SC (17:59)
--- NOTE | 2024-08-18 18:00 | W.PN.ID1 ---
Date of Service
Date of Service: August 18, 2024
Today's Communication
Continue antibiotics for today.
Assessment / Plan
Acute recurrent sigmoid diverticulitis
Subjective chills
Diarrhea
HLD
Hypothyroidism
Lymphoma
Recommendations:
Continue with empiric Zosyn for the present.
Given history of recurrence on outpatient oral therapy, patient may require a course of IV antibiotics via home infusion.
Monitor white count and temperature curve.
Monitor pain level.
Chief Complaint
-: Other (Diverticulitis)
Subjective / Review of Systems
Review of Systems: No Fever and Abdominal Pain (Stable)
Vital Signs / Physical Exam
Vital Signs
Vital Signs
Temp Pulse Resp BP Pulse Ox
98.9 F 76 19 128/66 100
08/18/24 15:21 08/18/24 15:21 08/18/24 15:21 08/18/24 15:21 08/18/24 15:21
Physical Exam
Constitutional: No Acute Distress, Comfortable and Non-toxic
Eyes: Sclera Anicteric
Pulmonary: Clear and Non Labored
Gastrointestinal: Soft, Tender, Non Distended, Normal Bowel Sounds, No Rebound and No Guarding
Neurological: Awake and Alert
Psychological: Calm
Objective Data
Lab Data
Lab Results
08/17/24 05:23
08/17/24 05:23
Estimated Creat Clear 74 ml/min 08/17/24 05:23
Lactic Acid 0.6 mmol/L (0.7-2.0) L 08/14/24 16:31
Total Bilirubin 0.9 mg/dl (0.2-1.3) 08/14/24 13:08
AST 23 U/L (14-36) 08/14/24 13:08
ALT 22 U/L (0-35) 08/14/24 13:08
Alkaline Phosphatase 62 U/L (38-126) 08/14/24 13:08
C-Reactive Protein 9.70 mg/L (0.0-10.00) 08/16/24 04:07
Most recent labs reviewed.
Micro Results:
08/15/24 14:26 C. difficile [facility] Antigen & Toxins - Final
Feces/Stool Negative for toxigenic C.difficile
Imaging:
08/14/2024 CT abdomen/pelvis with contrast: Mild colonic diverticulosis. Small amount of inflammatory fat stranding about a diverticulum in the sigmoid colon most suggestive of mild sigmoid diverticulitis. No bowel obstruction. No extraluminal
fluid. Please see full dictation for additional detail.
[2024-08-18] MEDS: CRESTOR 40 MG PO (20:45)
[2024-08-18] MEDS: AMBIEN 5 MG PO (23:06)
[2024-08-18 23:24] VITALS: BP 128/70
--- NOTE | 2024-08-18 23:55 | W.PN.UPDATE ---
Update Note
Progress Note Update
Patient seen to evaluate redness/discomfort in left eye. Pt stated dry/scratchy feeling started around noon and has been worsening since that time. Noted some drainage from eye. Patient denies photophobia, double vision, states no changes in vision,
had been reading earlier. Patient does not wear contact lenses. Will treat for bacterial conjunctivitis, Ordered Erythromycin (Ilotycin) - Erythromycin 0.5% (Ophthalmic Ointment) QID for 5 days and Refresh Gel QIDPRN for comfort.
[2024-08-19] MEDS: REFRESH CELLUVISC GEL 1 DROPS OPHTH (01:44)
[2024-08-19] MEDS: ZOSYN 50 IV ×4 (01:45→20:43)
--- NOTE | 2024-08-19 03:35 | PTCARENOTE ---
Pt c/o L eye is dry, painful, and very red. TEST DESIGNER notified and in room to assess pt. Eye drops and antibiotic ointment ordered. Plan of care ongoing.
[2024-08-19 07:45] VITALS: BP 106/80
[2024-08-19] MEDS: PROTONIX 40 MG PO (07:52)
[2024-08-19] MEDS: ERYTHROMYCIN 0.5% OPHTHALMIC OINTMENT 1 APPLIC LEFT EYE (07:52)
--- NOTE | 2024-08-19 08:26 | W.PN.CRS1 ---
Today's Communication / Plan
-
as below
Assessment/Plan
-
69 yo female with PMH of MALT lymphoma, IBS, HLD, pelvic floor dysfunction (s/p PFPT last appointment she had significant improvement in the obstructive symptoms), pelvic organ prolapse s/p sacrocolpopexy with bladder sling in 2018 at
[facility], multiple prior abdominal surgeries including [facility] for SBO, who presents with refractory LLQ abdominal pain; her abdominal pain started back in March but got significantly worse in May; this was associated with frequent loose stools that
she described as coffee-ground, but not obviously bloody; she had a CT on 06/30 which showed acute uncomplicated diverticulitis with mild to moderate constipation; she was treated with 2 weeks of Cipro and Flagyl, but failed to improve; a repeat CT
scan was done 07/20, which showed persistent mild acute diverticulitis with some constipation; she was switched to Augmentin for 2 to 3 weeks; again, her symptoms did not improve; she has been off of the antibiotics for about 2 weeks and the loose
stools and abdominal pain continued to worsen, so she presented again to the ED; last colonoscopy in 2021 by [facility], which showed a cecal TA, hemorrhoids and random biopsies which were negative; in the ED, afebrile, VSS, CT showing mild acute
diverticulitis, WBC 4.5
AFVSS
No labs today orders
� Advance to full liquids
� Continue pain control with Tylenol, oxycodone and Dilaudid as needed
� Continue DVT PPx with Lovenox
� Continue IV Zosyn; appreciate ID; agree with home IV antibiotics
� No acute surgical intervention currently indicated; will continue to monitor
-If surgery required, would discuss with Jatinder for the possibility of needing his assistance intra-op
�Appreciate hospitalist
Subjective Data
Subjective Data
Date of Service: August 19, 2024
No overnight events.
Pain significantly improved, but still persistent.
Denies nausea/vomiting. Tolerating diet.
+flatus +BMs +voiding
Objective Data
-
Vital Signs
Temp Pulse Resp BP Pulse Ox
98.4 F 71 16 106/80 98
08/19/24 07:45 08/19/24 07:45 08/19/24 07:45 08/19/24 07:45 08/19/24 07:45
Intake & Output
08/18/24 08/19/24 08/20/24
06:59 06:59 06:59
Intake Total 1300 / 1300
Balance 1300 / 1300
Intake:
Oral fluids 240 / 240
IV fluids (Total) 960 / 960
IV piggybacks 100 / 100
Other:
Number of approximated MODERATE 2
amounts of urine
Number of approximated LARGE 1
amounts of urine
Lab Results
08/17/24 05:23
08/17/24 05:23
Physical Exam
-
General: No Acute Distress and AOx3
HEENT: Grossly Normal
Abdomen: Soft, Non Distended, Tender (Mildly tender in the LLQ), No Guarding and No Rebound
Skin: Warm and Dry
--- NOTE | 2024-08-19 09:32 | W.PN.HOSP.TC ---
Today's Communication/Plan
-
left eye: viral, artificial tears, can apply cool compresses. Prophylactic antibiotic eyedrop
ok to advance diet as recommended by surgery
Assessment / Plan
Assessment / Plan
Physical Exam
General: Well Developed and Well Nourished
HEENT: Moist Mucous Membranes, Anicteric and PERRLA
Respiratory: Clear to Auscultation and Non-Labored Respirations; Negative Wheezes, Rales or Rhonchi
Cardiac: Regular Rhythm and S1/S2;
GI: Soft, Nontender, Nondistended and Normal Bowel Sounds
Musculoskeletal: No joint swelling. �Negative Edema, Left Lower Extrem
Skin: Warm, Dry and no rash
Neuro: Awake and AO x 3, non-focal exam.
Psych: Calm
A/p:
# Acute diverticulitis - mild uncomplicated on imaging and exam but recurrent on history and failure of outpatient tx
Much less pain
Not significant tenderness on exam
No nausea
No fever or chills. No nausea.
- Negative C Diff
- pain control and antiemetics
- Appreciate colorectal surgery & ID input.
# Left eye conjunctivitis, likely viral
No yellow/greenish thick discharge.
Positive for redness of the left eye, no photophobia or pain. Discomfort and foreign body sensation
No known trauma or injury
Will give artificial tears, can apply cool compresses. Prophylactic antibiotic eyedrop
Inform patient, this is contagious disease
# Continue vitamin D supplementation for history of vitamin D deficiency
GERD
Continue PPI
Hyperlipidemia
Continue Crestor
Total time spent to see the patient, examine the patient, review data and lab result, discuss treatment plan with patient, nursing staff around 55 minutes
Anticipated Discharge: 24 - 48 hours
Subjective/Interval History
-
Date of Service: August 19, 2024
She is feeling better
Less abdominal pain
left eye dryness and burning
Objective Data
-
Vital Signs:
Vital Signs
Temp Pulse Resp BP Pulse Ox
98.4 F 71 16 106/80 98
08/19/24 07:45 08/19/24 07:45 08/19/24 07:45 08/19/24 07:45 08/19/24 07:45
I&O
08/18/24 08/19/24 08/20/24
06:59 06:59 06:59
Intake Total 1300 / 1300
Balance 1300 / 1300
[2024-08-19] MEDS: REFRESH EYE DROPS (PF) 1 DROPS OPHTH ×3 (13:21→21:14)
[2024-08-19] MEDS: CILOXAN 0.3% OPHTHALMIC SOLUTION 1 DROP OPHTH ×3 (15:01→23:09)
[2024-08-19 15:33] VITALS: BP 145/80
--- NOTE | 2024-08-19 17:29 | W.PN.ID1 ---
Date of Service
Date of Service: August 19, 2024
Today's Communication
Continue antibiotics for today.
Assessment / Plan
Acute recurrent sigmoid diverticulitis
Subjective chills
Diarrhea
HLD
Hypothyroidism
Lymphoma
Recommendations:
Continue with empiric Zosyn for the present.
Given history of recurrence on outpatient oral therapy, patient may require a course of IV antibiotics via home infusion.
Monitor white count and temperature curve.
Monitor pain level.
Chief Complaint
-: Other (Diverticulitis)
Subjective / Review of Systems
Reports some improvement in abdominal pain.
Vital Signs / Physical Exam
Vital Signs
Vital Signs
Temp Pulse Resp BP Pulse Ox
98.4 F 84 16 145/80 99
08/19/24 15:33 08/19/24 15:33 08/19/24 15:33 08/19/24 15:33 08/19/24 15:33
Physical Exam
Constitutional: No Acute Distress, Comfortable and Non-toxic
Eyes: Sclera Anicteric
Pulmonary: Clear and Non Labored
Gastrointestinal: Soft, Tender, Non Distended, Normal Bowel Sounds, No Rebound and No Guarding
Neurological: Awake and Alert
Psychological: Calm
Objective Data
Lab Data
Lab Results
08/17/24 05:23
08/17/24 05:23
Estimated Creat Clear 74 ml/min 08/17/24 05:23
Lactic Acid 0.6 mmol/L (0.7-2.0) L 08/14/24 16:31
Total Bilirubin 0.9 mg/dl (0.2-1.3) 08/14/24 13:08
AST 23 U/L (14-36) 08/14/24 13:08
ALT 22 U/L (0-35) 08/14/24 13:08
Alkaline Phosphatase 62 U/L (38-126) 08/14/24 13:08
C-Reactive Protein 9.70 mg/L (0.0-10.00) 08/16/24 04:07
Most recent labs reviewed.
Micro Results:
08/15/24 14:26 C. difficile [facility] Antigen & Toxins - Final
Feces/Stool Negative for toxigenic C.difficile
Imaging:
08/14/2024 CT abdomen/pelvis with contrast: Mild colonic diverticulosis. Small amount of inflammatory fat stranding about a diverticulum in the sigmoid colon most suggestive of mild sigmoid diverticulitis. No bowel obstruction. No extraluminal
fluid. Please see full dictation for additional detail.
[2024-08-19] MEDS: LOVENOX 40 MG SC (17:53)
[2024-08-19] MEDS: EVISTA 60 MG PO (17:53)
[2024-08-19] MEDS: CRESTOR 40 MG PO (21:14)
[2024-08-19] MEDS: AMBIEN 5 MG PO (22:56)
[2024-08-19 23:30] VITALS: BP 128/75
[2024-08-20] MEDS: ZOSYN 50 IV ×3 (01:59→14:19)
[2024-08-20] MEDS: CILOXAN 0.3% OPHTHALMIC SOLUTION 1 DROP OPHTH ×4 (05:56→23:08)
[2024-08-20] MEDS: ROXICODONE 5 MG PO ×2 (06:36→22:09)
[2024-08-20 07:00] VITALS: BP 132/69
[2024-08-20] MEDS: PROTONIX 40 MG PO (08:47)
[2024-08-20] MEDS: REFRESH EYE DROPS (PF) 1 DROPS OPHTH ×4 (08:47→21:02)
--- NOTE | 2024-08-20 08:54 | W.PN.CRS1 ---
Today's Communication / Plan
-
as below
Assessment/Plan
-
69 yo female with PMH of MALT lymphoma, IBS, HLD, pelvic floor dysfunction (s/p PFPT last appointment she had significant improvement in the obstructive symptoms), pelvic organ prolapse s/p sacrocolpopexy with bladder sling in 2018 at
[facility], multiple prior abdominal surgeries including [facility] for SBO, who presents with refractory LLQ abdominal pain; her abdominal pain started back in March but got significantly worse in May; this was associated with frequent loose stools that
she described as coffee-ground, but not obviously bloody; she had a CT on 06/30 which showed acute uncomplicated diverticulitis with mild to moderate constipation; she was treated with 2 weeks of Cipro and Flagyl, but failed to improve; a repeat CT
scan was done 07/20, which showed persistent mild acute diverticulitis with some constipation; she was switched to Augmentin for 2 to 3 weeks; again, her symptoms did not improve; she has been off of the antibiotics for about 2 weeks and the loose
stools and abdominal pain continued to worsen, so she presented again to the ED; last colonoscopy in 2021 by [facility], which showed a cecal TA, hemorrhoids and random biopsies which were negative; in the ED, afebrile, VSS, CT showing mild acute
diverticulitis, WBC 4.5; improving with nonoperative measures
AFVSS
No labs today orders
� Advance to regular diet
� Continue pain control with Tylenol, oxycodone and Dilaudid as needed
� Continue DVT PPx with Lovenox
� Continue IV Zosyn; appreciate ID
�Agree with home IV antibiotics
� No acute surgical intervention currently indicated; will continue to monitor
-If surgery required, would discuss with Jatinder for the possibility of needing his assistance intra-op
�Appreciate hospitalist
Dispo�if tolerates regular diet, okay for discharge from surgical standpoint once medically clear; will likely need IV antibiotics set up, but will await ID recommendations
Subjective Data
Subjective Data
Date of Service: August 20, 2024
No overnight events.
Pain continues to improve
Denies nausea/vomiting. Tolerating full liquids.
+flatus +BMs +voiding
Objective Data
-
Vital Signs
Temp Pulse Resp BP Pulse Ox
98.6 F 72 19 132/69 98
08/20/24 07:00 08/20/24 07:00 08/20/24 07:00 08/20/24 07:00 08/20/24 07:00
Intake & Output
08/19/24 08/20/24 08/21/24
06:59 06:59 06:59
Intake Total 1300 / 1300 1180 / 1180
Output Total 5 / 5
Balance 1300 / 1300 1175 / 1175
Intake:
Oral fluids 240 / 240 1080 / 1080
IV fluids (Total) 960 / 960
IV piggybacks 100 / 100 100 / 100
Output:
Liquid stool amount 5 / 5
Rectum 5 / 5
Other:
Number of approximated MODERATE 2 3
amounts of urine
Lab Results
08/17/24 05:23
08/17/24 05:23
Physical Exam
-
General: No Acute Distress and AOx3
HEENT: Grossly Normal
Abdomen: Soft, Non Distended, Tender (Minimally to mildly tender in the LLQ), No Guarding and No Rebound
Skin: Warm and Dry
--- NOTE | 2024-08-20 09:10 | W.PN.HOSP.TC ---
Today's Communication/Plan
-
c/w precaution for pink eye
c/w IV Abx
Tolerating diet
Assessment / Plan
Assessment / Plan
Physical Exam
General: Well Developed and Well Nourished
HEENT: Moist Mucous Membranes, Anicteric and PERRLA
Respiratory: Clear to Auscultation and Non-Labored Respirations; Negative Wheezes, Rales or Rhonchi
Cardiac: Regular Rhythm and S1/S2;
GI: Soft, Nontender, Nondistended and Normal Bowel Sounds
Musculoskeletal: No joint swelling. �Negative Edema, Left Lower Extrem
Skin: Warm, Dry and no rash
Neuro: Awake and AO x 3, non-focal exam.
Psych: Calm
A/p:
# Acute diverticulitis - mild uncomplicated on imaging and exam but recurrent on history and failure of outpatient tx
Much less pain
Not significant tenderness on exam
No nausea
No fever or chills. No nausea.
- Negative C Diff
- pain control and antiemetics
- Appreciate colorectal surgery & ID input.
# Left eye conjunctivitis, likely viral ( pink eye)
No yellow/greenish thick discharge.
Less red and discomfort. No blurred vision, no pain or tearing.
Positive for redness of the left eye, no photophobia or pain. Discomfort and foreign body sensation presentation
No known trauma or injury
c/w artificial tears, can apply cool compresses. Prophylactic antibiotic eyedrop
Inform patient, this is contagious disease
# Continue vitamin D supplementation for history of vitamin D deficiency
GERD
Continue PPI
Hyperlipidemia
Continue Crestor
Total time spent to see the patient, examine the patient, review data and lab result, discuss treatment plan with patient, nursing staff around 55 minutes
Anticipated Discharge: 24 - 48 hours
Subjective/Interval History
-
Date of Service: August 20, 2024
Objective Data
-
Vital Signs:
Vital Signs
Temp Pulse Resp BP Pulse Ox
98.6 F 72 19 132/69 98
08/20/24 07:00 08/20/24 07:00 08/20/24 07:00 08/20/24 07:00 08/20/24 07:00
I&O
08/19/24 08/20/24 08/21/24
06:59 06:59 06:59
Intake Total 1300 / 1300 1180 / 1180
Output Total
Balance 1300 / 1300 1175 / 1175
[2024-08-20 15:00] VITALS: BP 128/68
[2024-08-20] MEDS: EVISTA 60 MG PO (17:33)
[2024-08-20] MEDS: LOVENOX 40 MG SC (17:33)
--- NOTE | 2024-08-20 17:45 | W.PN.ID1 ---
Date of Service
Date of Service: August 20, 2024
Today's Communication
Continue antibiotics.
Assessment / Plan
Acute recurrent sigmoid diverticulitis
Subjective chills
Diarrhea
HLD
Hypothyroidism
Lymphoma
Recommendations:
Continue antibiotics. Will transition to once daily ertapenem in anticipation of home infusion.
Would continue with an additional 2 weeks or so of IV antibiotics. Possible transition to oral regimen thereafter if necessary.
Monitor white count and temperature curve.
Monitor pain level.
Chief Complaint
-: Other (Diverticulitis)
Subjective / Review of Systems
Patient seen and examined. Notes marked improvement in abdominal discomfort. No pain.
Review of Systems: No Fever and No Chills
Vital Signs / Physical Exam
Vital Signs
Vital Signs
Temp Pulse Resp BP Pulse Ox
98.8 F 69 18 128/68 99
08/20/24 15:00 08/20/24 15:00 08/20/24 15:00 08/20/24 15:00 08/20/24 15:00
Physical Exam
Constitutional: No Acute Distress, Comfortable and Non-toxic
Eyes: Sclera Anicteric
Pulmonary: Clear and Non Labored
Gastrointestinal: Non Distended
Extremities: Negative Erythema
Skin: Warm and Dry; Negative Rash or Jaundice
Neurological: Awake and Alert
Psychological: Calm
Objective Data
Lab Data
Lab Results
08/17/24 05:23
08/17/24 05:23
Estimated Creat Clear 74 ml/min 08/17/24 05:23
Lactic Acid 0.6 mmol/L (0.7-2.0) L 08/14/24 16:31
Total Bilirubin 0.9 mg/dl (0.2-1.3) 08/14/24 13:08
AST 23 U/L (14-36) 08/14/24 13:08
ALT 22 U/L (0-35) 08/14/24 13:08
Alkaline Phosphatase 62 U/L (38-126) 08/14/24 13:08
C-Reactive Protein 9.70 mg/L (0.0-10.00) 08/16/24 04:07
Most recent labs reviewed.
Micro Results:
08/15/24 14:26 C. difficile [facility] Antigen & Toxins - Final
Feces/Stool Negative for toxigenic C.difficile
Imaging:
08/14/2024 CT abdomen/pelvis with contrast: Mild colonic diverticulosis. Small amount of inflammatory fat stranding about a diverticulum in the sigmoid colon most suggestive of mild sigmoid diverticulitis. No bowel obstruction. No extraluminal
fluid. Please see full dictation for additional detail.
[2024-08-20] MEDS: INVANZ 60 MG IV (18:23)
[2024-08-20] MEDS: CRESTOR 40 MG PO (21:02)
[2024-08-20] MEDS: AMBIEN 5 MG PO (23:08)
--- NOTE | 2024-08-20 23:41 | PTCARENOTE ---
Patient had a temp of 101.7 for which had Tylenol 650mg at 19:08. Just now patient's temp- 102.8. Patient is on Eliquis BID at home, which not ordered. DENNIS Lindo made aware of temp/ Eliquis. See MAR for new orders.
[2024-08-20 23:52] VITALS: BP 132/68
[2024-08-21] MEDS: CILOXAN 0.3% OPHTHALMIC SOLUTION 1 DROP OPHTH ×4 (05:18→23:01)
[2024-08-21 07:00] VITALS: BP 121/65
[2024-08-21] MEDS: REFRESH EYE DROPS (PF) 1 DROPS OPHTH ×4 (08:25→21:10)
[2024-08-21] MEDS: PROTONIX 40 MG PO (08:25)
--- NOTE | 2024-08-21 09:22 | W.PN.HOSP.TC ---
Today's Communication/Plan
-
dc if ok with surgery
Assessment / Plan
Assessment / Plan
Physical Exam
General: Well Developed and Well Nourished
HEENT: Moist Mucous Membranes, Anicteric and PERRLA
Respiratory: Clear to Auscultation and Non-Labored Respirations; Negative Wheezes, Rales or Rhonchi
Cardiac: Regular Rhythm and S1/S2;
GI: Soft, Nontender, Nondistended and Normal Bowel Sounds
Musculoskeletal: No joint swelling. �Negative Edema, Left Lower Extrem
Skin: Warm, Dry and no rash
Neuro: Awake and AO x 3, non-focal exam.
Psych: Calm
A/p:
# Acute diverticulitis - mild uncomplicated on imaging and exam but recurrent on history and failure of outpatient tx
Much less pain
Not significant tenderness on exam
No nausea
No fever or chills. No nausea.
- Negative C Diff
- pain control and antiemetics
- Appreciate colorectal surgery & ID input.
# Left eye conjunctivitis, likely viral ( pink eye)
No yellow/greenish thick discharge.
Much less redness. Right eye normal. No blurred vision, no pain or tearing.
c/w artificial tears, can apply cool compresses. Prophylactic antibiotic eyedrop, total 5 days.
Inform patient, this is contagious disease
# Continue vitamin D supplementation for history of vitamin D deficiency
GERD
Continue PPI
Hyperlipidemia
Continue Crestor
Total dc time spent to see the patient, examine the patient, review data and lab result, discuss discharge plan with patient, nursing staff around 65 minutes
Anticipated Discharge: Today
Subjective/Interval History
-
Date of Service: August 21, 2024
Reports pain last night after dinner but not this morning
Objective Data
-
Vital Signs:
Vital Signs
Temp Pulse Resp BP Pulse Ox
98.4 F 68 19 121/65 99
08/21/24 07:00 08/21/24 07:00 08/21/24 07:00 08/21/24 07:00 08/21/24 07:00
I&O
08/20/24 08/21/24 08/22/24
06:59 06:59 06:59
Intake Total 1180 / 1180 2104
Output Total
Balance 1175 / 1175 2104
--- NOTE | 2024-08-21 09:30 | W.PN.ID1 ---
Date of Service
Date of Service: August 21, 2024
Today's Communication
Continue antibiotics. See below�
Assessment / Plan
Acute recurrent sigmoid diverticulitis
Subjective chills
Diarrhea
HLD
Hypothyroidism
Lymphoma
Recommendations:
Continue ertapenem.
Patient reports desire to go on [place] in the [place] (leaving [place]02).
Script written for ertapenam to continue through 08/31. Prescription placed on paper chart.
If at 08/31 she is feeling well, she can be transition to an oral regimen of levofloxacin and metronidazole to continue for an additional 10 days or so.
Monitor white count and temperature curve.
Monitor pain level.
����������������������������������������������������������
Chief Complaint
-: Other (Diverticulitis)
Subjective / Review of Systems
Review of Systems: No Fever, No Chills and No Abdominal Pain
Vital Signs / Physical Exam
Vital Signs
Vital Signs
Temp Pulse Resp BP Pulse Ox
98.4 F 68 19 121/65 99
08/21/24 07:00 08/21/24 07:00 08/21/24 07:00 08/21/24 07:00 08/21/24 07:00
Physical Exam
Constitutional: No Acute Distress, Comfortable and Non-toxic
Eyes: Sclera Anicteric
Cardiovascular: S1/S2; Negative S3/S4
Pulmonary: Non Labored
Gastrointestinal: Soft, Non Tender, Non Distended, Normal Bowel Sounds, No Rebound and No Guarding
Neurological: Awake and Alert
Psychological: Calm
Objective Data
Lab Data
Lab Results
08/17/24 05:23
08/17/24 05:23
Estimated Creat Clear 74 ml/min 08/17/24 05:23
Lactic Acid 0.6 mmol/L (0.7-2.0) L 08/14/24 16:31
Total Bilirubin 0.9 mg/dl (0.2-1.3) 08/14/24 13:08
AST 23 U/L (14-36) 08/14/24 13:08
ALT 22 U/L (0-35) 08/14/24 13:08
Alkaline Phosphatase 62 U/L (38-126) 08/14/24 13:08
C-Reactive Protein 9.70 mg/L (0.0-10.00) 08/16/24 04:07
Most recent labs reviewed.
Micro Results:
08/15/24 14:26 C. difficile GDH Antigen & Toxins - Final
Feces/Stool Negative for toxigenic C.difficile
Imaging:
08/14/2024 CT abdomen/pelvis with contrast: Mild colonic diverticulosis. Small amount of inflammatory fat stranding about a diverticulum in the sigmoid colon most suggestive of mild sigmoid diverticulitis. No bowel obstruction. No extraluminal
fluid. Please see full dictation for additional detail.
Care Review
Plan reviewed with: Physician (CRS)
[2024-08-21 15:00] VITALS: BP 146/68
--- NOTE | 2024-08-21 16:28 | VATNOTE ---
attempted to place midline now; case repairer in talking with pt. prior to. Pt would like to shower and wash her hair BEFORE m idline placed. Pt. asked if midline could be placed tomorrow, sat 08/22. Schedule checked and a VAT RN certified to place
midlines is on. Midline will be placed tomorrow. VAT to follow.
--- NOTE | 2024-08-21 17:17 | CM ---
CM met with Yasemin at bedside; she will need IV abx; Rx faxed to [facility]. $722 for medication and supplies.
[2024-08-21] MEDS: EVISTA 60 MG PO (18:08)
[2024-08-21] MEDS: INVANZ 60 MG IV (18:08)
[2024-08-21] MEDS: LOVENOX 40 MG SC (18:09)
[2024-08-21] MEDS: CRESTOR 40 MG PO (21:10)
[2024-08-21] MEDS: AMBIEN 5 MG PO (23:01)
[2024-08-21 23:52] VITALS: BP 120/62
[2024-08-22] MEDS: CILOXAN 0.3% OPHTHALMIC SOLUTION 1 DROP OPHTH ×4 (05:31→23:11)
[2024-08-22 06:24] LABS: Hematocrit 36.1 % (37.0-47.0); Hemoglobin 12.7 g/dL (12.0-16.0); Mean Corp Hgb Conc. 35.2 g/dL (33.0-37.0); Mean Corpuscular Hgb 30.7 pg (27.0-31.0); Mean Corpuscular Volume 87.2 fL (81.0-99.0); Mean Platelet Volume 10.5 fL (7.4-10.4); Platelet Count 167 10^3/uL (130-400); Red Blood Cell Count 4.14 10^6/uL (4.20-5.40); Red Cell Dist. Width 12.6 % (11.5-14.5); White Blood Cell Count 4.1 10^3/uL (4.8-10.8)
[2024-08-22 06:52] LABS: ALT (SGPT) 63 U/L (0-35); AST (SGOT) 44 U/L (14-36); Alkaline Phosphatase 56 U/L (38-126); Blood Urea Nitrogen 15 mg/dl (7-17); Calcium 9.5 mg/dl (8.4-10.2); Carbon Dioxide 27 mmol/L (22-30); Chloride 108 mmol/L (98-107); Estimated Creatinine Clearance 74 ml/min; Glucose 96 mg/dl (70-99); Potassium 3.9 mmol/L (3.5-5.1); Sodium 142 mmol/L (135-145); Total Bilirubin 0.6 mg/dl (0.2-1.3); Total Protein 6.2 g/dl (6.3-8.2); eGFR > 60.00
[2024-08-22 07:00] VITALS: BP 128/59
--- NOTE | 2024-08-22 08:32 | W.PN.HOSP.TC ---
Today's Communication/Plan
-
Discharge on Saturday
Assessment / Plan
Assessment / Plan
Physical Exam
General: Well Developed and Well Nourished
HEENT: Moist Mucous Membranes, Anicteric and PERRLA
Respiratory: Clear to Auscultation and Non-Labored Respirations; Negative Wheezes, Rales or Rhonchi
Cardiac: Regular Rhythm and S1/S2;
GI: Soft, Nontender, Nondistended and Normal Bowel Sounds
Musculoskeletal: No joint swelling. �Negative Edema, Left Lower Extrem
Skin: Warm, Dry and no rash
Neuro: Awake and AO x 3, non-focal exam.
Psych: Calm
A/p:
# Acute diverticulitis - mild uncomplicated on imaging and exam but recurrent on history and failure of outpatient tx
Much less pain
Not significant tenderness on exam
No nausea
No fever or chills. No nausea.
- Negative C Diff
- pain control and antiemetics
- Appreciate colorectal surgery & ID input.
# Left eye conjunctivitis, likely viral ( pink eye)
No yellow/greenish thick discharge.
Much less redness. Right eye normal. No blurred vision, no pain or tearing.
c/w artificial tears, can apply cool compresses. Prophylactic antibiotic eyedrop, total 5 days.
Inform patient, this is contagious disease
# Continue vitamin D supplementation for history of vitamin D deficiency
GERD
Continue PPI
Hyperlipidemia
Continue Crestor
Total time spent to see the patient, examine the patient, review data and lab result, discuss treatment plan with patient, nursing staff around 55 minutes
Anticipated Discharge: 24 - 48 hours
Subjective/Interval History
-
Date of Service: August 22, 2024
She is feeling better
No abd pain
Objective Data
-
Labs:
Laboratory Results
08/22/24
05:29
WBC 4.1 L
Hgb 12.7
Hct 36.1 L
Plt Count 167
Sodium 142
Potassium 3.9
Chloride 108 H
Carbon Dioxide 27
BUN 15
Creatinine 0.7
Glucose 96
Calcium 9.5
Total Bilirubin 0.6
AST 44 H
ALT 63 H
Alkaline Phosphatase 56
Vital Signs:
Vital Signs
Temp Pulse Resp BP Pulse Ox
98.1 F 71 17 128/59 99
08/22/24 07:00 08/22/24 07:00 08/22/24 07:00 08/22/24 07:00 08/22/24 07:00
I&O
08/21/24 08/22/24 08/23/24
06:59 06:59 06:59
Intake Total 2104
Balance 2104
[2024-08-22] MEDS: REFRESH EYE DROPS (PF) 1 DROPS OPHTH ×4 (09:17→21:25)
[2024-08-22] MEDS: PROTONIX 40 MG PO (09:18)
[2024-08-22] MEDS: INVANZ 60 MG IV (12:39)
[2024-08-22] MEDS: FLUSH (NSS) 2 FLUSH IV (12:40)
[2024-08-22 15:00] VITALS: BP 144/73
[2024-08-22] MEDS: EVISTA 60 MG PO (17:24)
[2024-08-22] MEDS: LOVENOX 40 MG SC (17:25)
[2024-08-22] MEDS: CRESTOR 40 MG PO (21:25)
[2024-08-22 23:00] VITALS: BP 136/65
[2024-08-22] MEDS: AMBIEN 5 MG PO (23:35)
[2024-08-23 07:00] VITALS: BP 126/68
[2024-08-23] MEDS: CILOXAN 0.3% OPHTHALMIC SOLUTION 1 DROP OPHTH ×4 (08:24→22:39)
[2024-08-23] MEDS: PROTONIX 40 MG PO (08:25)
[2024-08-23] MEDS: REFRESH EYE DROPS (PF) 1 DROPS OPHTH ×4 (08:25→22:02)
--- NOTE | 2024-08-23 08:50 | W.PN.HOSP.TC ---
Today's Communication/Plan
-
.
Assessment / Plan
Assessment / Plan
Physical Exam
General: Well Developed and Well Nourished
HEENT: Moist Mucous Membranes, Anicteric and PERRLA
Respiratory: Clear to Auscultation and Non-Labored Respirations; Negative Wheezes, Rales or Rhonchi
Cardiac: Regular Rhythm and S1/S2;
GI: Soft, Nontender, Nondistended and Normal Bowel Sounds
Musculoskeletal: No joint swelling. �Negative Edema, Left Lower Extrem
Skin: Warm, Dry and no rash
Neuro: Awake and AO x 3, non-focal exam.
Psych: Calm
A/p:
# Acute diverticulitis - mild uncomplicated on imaging and exam but recurrent on history and failure of outpatient tx
Much less pain
Not significant tenderness on exam
No nausea
No fever or chills. No nausea.
- Negative C Diff
- pain control and antiemetics
- PRN MiraLAX
- Appreciate colorectal surgery & ID input.
# Left eye conjunctivitis, likely viral ( pink eye)
No yellow/greenish thick discharge.
Much less redness. Right eye normal. No blurred vision, no pain or tearing.
c/w artificial tears, can apply cool compresses. Prophylactic antibiotic eyedrop, total 5 days, last day 08/23.
Inform patient, this is contagious disease
# Continue vitamin D supplementation for history of vitamin D deficiency
GERD
Continue PPI
Hyperlipidemia
Continue Crestor
Total time spent to see the patient, examine the patient, review data and lab result, discuss treatment plan with patient, nursing staff around 55 minutes
Anticipated Discharge: 24 - 48 hours
Subjective/Interval History
-
Date of Service: August 23, 2024
No abdominal pain
reports mild constipation
No nausea, tolerating diet
Objective Data
-
Vital Signs:
Vital Signs
Temp Pulse Resp BP Pulse Ox
98.4 F 71 18 126/68 98
08/23/24 07:00 08/23/24 07:00 08/23/24 07:00 08/23/24 07:00 08/23/24 07:00
I&O
08/22/24 08/23/24 08/24/24
06:59 06:59 06:59
Intake Total 2099 1500 / 2460 960 / 960
Balance 2099 1500 / 2460 960 / 960
[2024-08-23] MEDS: INVANZ 60 MG IV (12:03)
[2024-08-23 15:00] VITALS: BP 129/71
[2024-08-23] MEDS: ROXICODONE 5 MG PO (15:22)
--- NOTE | 2024-08-23 16:08 | W.PN.ID1 ---
Date of Service
Date of Service: August 23, 2024
Today's Communication
Continue antibiotics.
Assessment / Plan
Acute recurrent sigmoid diverticulitis
Subjective chills
Diarrhea
HLD
Hypothyroidism
Lymphoma
Recommendations:
Continue ertapenem.
Patient reports desire to go on cruise in the [place] (leaving 09/02).
Script written for ertapenam to continue through 08/31. Prescription placed on paper chart.
Patient also investigating whether outpatient infusion is a possibility for the remaining days she needs IV antibiotics.
If at 08/31 she is feeling well, she can be transition to an oral regimen of levofloxacin and metronidazole to continue for an additional 10 days or so.
Monitor white count and temperature curve.
Monitor pain level.
����������������������������������������������������������
Chief Complaint
-: Other (Diverticulitis)
Subjective / Review of Systems
Patient seen and examined. Reports abdomen is feeling good. She is tolerating her diet.
Vital Signs / Physical Exam
Vital Signs
Vital Signs
Temp Pulse Resp BP Pulse Ox
98.4 F 76 18 129/71 98
08/23/24 15:00 08/23/24 15:00 08/23/24 15:00 08/23/24 15:00 08/23/24 15:00
Physical Exam
Constitutional: No Acute Distress, Comfortable and Non-toxic
Eyes: Sclera Anicteric
Pulmonary: Non Labored
Gastrointestinal: Non Distended
Neurological: Awake and Alert
Psychological: Calm
Objective Data
Lab Data
Lab Results
08/22/24 05:29
08/22/24 05:29
Estimated Creat Clear 74 ml/min 08/22/24 05:29
Lactic Acid 0.6 mmol/L (0.7-2.0) L 08/14/24 16:31
Total Bilirubin 0.6 mg/dl (0.2-1.3) 08/22/24 05:29
AST 44 U/L (14-36) H 08/22/24 05:29
ALT 63 U/L (0-35) H 08/22/24 05:29
Alkaline Phosphatase 56 U/L (38-126) 08/22/24 05:29
C-Reactive Protein 9.70 mg/L (0.0-10.00) 08/16/24 04:07
Most recent labs reviewed.
Micro Results:
08/15/24 14:26 C. difficile GDH Antigen & Toxins - Final
Feces/Stool Negative for toxigenic C.difficile
Imaging:
08/14/2024 CT abdomen/pelvis with contrast: Mild colonic diverticulosis. Small amount of inflammatory fat stranding about a diverticulum in the sigmoid colon most suggestive of mild sigmoid diverticulitis. No bowel obstruction. No extraluminal
fluid. Please see full dictation for additional detail.
--- NOTE | 2024-08-23 16:09 | CM ---
On sat 08/22/24 Spoke with [facility] clinical received and benefits run .Aurea said pts cost would be $722.00 weekly charge.
ID indicated pt home with IV antibiotics.
Spoke with and pt in room . Explained option Either home with [facility] and [facility] VS Out Patient infusion center .
Explained to pt that CM will need to contact out pt Infusion center to [facility] and find out if spot available.
PLAN Home with [facility] VS out patient infusion center
[2024-08-23] MEDS: LOVENOX 40 MG SC (17:03)
[2024-08-23] MEDS: EVISTA 60 MG PO (17:04)
[2024-08-23] MEDS: CRESTOR 40 MG PO (22:02)
[2024-08-23] MEDS: AMBIEN 5 MG PO (22:40)
[2024-08-23 23:00] VITALS: BP 110/60
[2024-08-24 06:08] LABS: Hematocrit 36.2 % (37.0-47.0); Hemoglobin 12.5 g/dL (12.0-16.0); Mean Corp Hgb Conc. 34.5 g/dL (33.0-37.0); Mean Corpuscular Hgb 30.4 pg (27.0-31.0); Mean Corpuscular Volume 88.1 fL (81.0-99.0); Mean Platelet Volume 10.4 fL (7.4-10.4); Platelet Count 167 10^3/uL (130-400); Red Blood Cell Count 4.11 10^6/uL (4.20-5.40); Red Cell Dist. Width 12.4 % (11.5-14.5); White Blood Cell Count 3.5 10^3/uL (4.8-10.8)
[2024-08-24] MEDS: CILOXAN 0.3% OPHTHALMIC SOLUTION 1 DROP OPHTH ×4 (06:17→22:58)
[2024-08-24 06:31] LABS: ALT (SGPT) 55 U/L (0-35); AST (SGOT) 33 U/L (14-36); Alkaline Phosphatase 53 U/L (38-126); Blood Urea Nitrogen 16 mg/dl (7-17); Calcium 9.6 mg/dl (8.4-10.2); Carbon Dioxide 27 mmol/L (22-30); Chloride 108 mmol/L (98-107); Estimated Creatinine Clearance 65 ml/min; Glucose 97 mg/dl (70-99); Potassium 4.4 mmol/L (3.5-5.1); Sodium 141 mmol/L (135-145); Total Bilirubin 0.7 mg/dl (0.2-1.3); Total Protein 6.3 g/dl (6.3-8.2); eGFR > 60.00
[2024-08-24] MEDS: REFRESH EYE DROPS (PF) 1 DROPS OPHTH ×4 (07:48→21:15)
[2024-08-24] MEDS: PROTONIX 40 MG PO (07:48)
[2024-08-24 08:30] VITALS: BP 106/62
--- NOTE | 2024-08-24 09:42 | CM ---
Addendum entered by MARIAH Martinez 08/24/24 17:51:
Patient updated and agreeable to going to Outpatient Infusion. Spoke with IV team. She will get her midline placed later this evening. CM will need to coordinate OID visits for patient prior to her leaving.
Addendum entered by MARIAH Martinez 08/24/24 12:51:
Received return call from Aye in OID who stated that if patient is able to receive her infusions there once a day, with her primary and supplemental plan, she should not be responsible for any cost.
Will speak with patient.
Original Note:
Spoke with previous CM on case. Spoke with Marianna in admissions at [facility]. Provided update regarding patient deciding whether to get IV ABX or going to OID. Referral sent to [facility] for Ertrapenam Q24. Spoke with Benedict from [facility] who stated
that the total cost of the medication will be 582.21 and per previous CM on case, 722.00 with supplies. Patient made aware. Placed a call to OID and spoke with retail center receptionist who stated that she will defer to RN for cost and return call to CM with
cost. Provided CM contact information for call back.
Plan: Case management will continue to follow and assist with discharge planning. Home with IV ABX or OID.
--- NOTE | 2024-08-24 09:42 | W.PN.CRS1 ---
Addendum entered and electronically signed by Josue Diggs MD 08/24/24 19:15:
spoke with patient over the phone; discussed the results of the CT scan, the inflammation from the diverticulitis has pretty much resolved; there was a note about a possible soft tissue attenuation within the colon around the rectosigmoid/sigmoid
which could represent stool, focal inflammation or a polyp/mass; Dr. Goetz from GI will see her tomorrow to discuss colonoscopy; however, I suspect that her intermittent pain that she continues to have is less likely related to diverticulitis and
more likely related to IBS, constipation or another functional issue; she understood well and appreciated the call; she will discuss colonoscopy with Dr. Goetz tomorrow and most likely will agree
Original Note:
Today's Communication / Plan
-
As below
Assessment/Plan
-
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
[place], multiple prior abdominal surgeries including CHAO for SBO, who presents with refractory LLQ abdominal pain; her abdominal pain started back in March but got significantly worse in May; this was associated with frequent loose stools that
she described as coffee-ground, but not obviously bloody; she had a CT on 06/30 which showed acute uncomplicated diverticulitis with mild to moderate constipation; she was treated with 2 weeks of Cipro and Flagyl, but failed to improve; a repeat CT
scan was done 07/20, which showed persistent mild acute diverticulitis with some constipation; she was switched to Augmentin for 2 to 3 weeks; again, her symptoms did not improve; she has been off of the antibiotics for about 2 weeks and the loose
stools and abdominal pain continued to worsen, so she presented again to the ED; last colonoscopy in 2021 by [facility], which showed a cecal TA, hemorrhoids and random biopsies which were negative; in the ED, afebrile, VSS, CT showing mild acute
diverticulitis, WBC 4.5
AFVSS
WBC 3.5
�Due to abdominal pain with some upper GI symptoms, will consult GI
�Has had long history of IBS and has used medication in the past that has helped, but does not remember
�Will repeat CTAP to rule out smoldering diverticulitis
� Continue low residue
� Continue pain control with Tylenol, oxycodone and Dilaudid as needed
� Continue DVT PPx with Lovenox
� Continue IV ertapenem; appreciate ID
�Agree with home IV antibiotics until August 31, then switch to Levaquin Flagyl x 10 days
� No acute surgical intervention currently indicated; will continue to monitor
-If surgery required, would discuss with Jatinder for the possibility of needing his assistance intra-op
�Appreciate hospitalist
Dispo�if CT scan unremarkable, okay for discharge from colorectal standpoint; await GI recommendations and medical clearance for home
Subjective Data
Subjective Data
Date of Service: August 24, 2024
No overnight events. Yesterday, after intake of salmon, patient had worsening LLQ abdominal pain, described as significant cramping as well as some epigastric pain. She had 3 loose BMs and the pain resolved.
She had some nausea, but no vomiting.
This morning, pain is only mild.
Objective Data
-
Vital Signs
Temp Pulse Resp BP Pulse Ox
97.5 F 68 18 106/62 99
08/24/24 08:30 08/24/24 08:30 08/24/24 08:30 08/24/24 08:30 08/24/24 08:30
Intake & Output
08/23/24 08/24/24 08/25/24
06:59 06:59 06:59
Intake Total 1500 / 2460 2640 / 2640 960 / 960
Balance 1500 / 2460 2640 / 2640 960 / 960
Intake:
Oral fluids 1440 / 2400 2640 / 2640 960 / 960
IV piggybacks
Other:
Number of approximated MODERATE 4
amounts of urine
Number of approximated LARGE 5 4
amounts of urine
How many times incontinent 3
SMALL amount urine
Number of unmeasured liquid
stools
Rectum 4
Lab Results
08/24/24 05:32
08/24/24 05:32
Physical Exam
-
General: No Acute Distress and AOx3
HEENT: Grossly Normal
Abdomen: Soft, Non Distended, Tender (Mildly tender in the LLQ and epigastric region), No Guarding and No Rebound
Skin: Warm and Dry
[2024-08-24] MEDS: OMNIPAQUE 50 ML PO (10:34)
--- NOTE | 2024-08-24 10:54 | CON.GI ---
Addendum entered and electronically signed by Mayda Adams MD 08/24/24 19:51:
I saw and examined the patient.
The [employer]UC[employer] or PA's note was reviewed and I agree with the note.
Comment:69-year-old female with prior history of chronic constipation, pelvic floor dysfunction with multiple abdominal surgeries, tried Linzess, Trulance, MiraLAX in the past but was doing relatively well with magnesium citrate and Colace up until
March presenting with abdominal discomfort in the left lower quadrant since May 2024. She has had multiple CT scans that showed possible sigmoid diverticulitis treated with oral antibiotics, the pain has been persistent and came to the
emergency room. She also reports multiple nonbloody soft mushy stool on a daily basis since March though previous CT scans do show constipation. Tried pelvic floor physical therapy in the past with some improvement in symptoms but she has had
frequent stool as per patient not constipation. Left lower quadrant pain is worse during a bowel movement. Colonoscopy in 2021 with diverticulosis.
No leukocytosis or fevers. Tolerating low residue diet, currently on ertapenem for diverticulitis treatment.
Repeat CT scan today with oral and rectal contrast showing mid to distal sigmoid 2 cm focal soft tissue attenuation, rule out stool versus wall thickening versus mass or polyp. Relatively mild colonic fecal burden noted.
Plan:
Continue antibiotics for treatment of diverticulitis noted on previous CAT scan but given the 2 cm focal soft tissue attenuation, she needs to be evaluated with flexible sigmoidoscopy or colonoscopy.
She is well-known to Dr. Spears who is going to plan for endoscopy evaluation this admission.
Will follow
Original Note:
Consultation
-
Date/Time Consultation Requested: 08/24/24 3536
Date/Time Consultation Performed: 08/24/24 1050
Requesting Provider: Josue Diggs MD
Performing Provider: DENNIS Mcmahan, Mayda Adams MD
Reason for Consultation: abdominal pain
Medical History
Chief Complaint / HPI
Chief Complaint: lower abdominal pain
History of Present Illness:
Pt is a 69yo presents with chronic constipation, pelvic floor dysfunction (with prior PFPT with improvement with therapy in past), non hodgkin's lymphoma with prior radiation to neck, hypothyroidism, HLD, IBS, c-diff, lap- BSO, lap CHAO,
thyroidectomy, appe, dar, pelvic fx repair, D+E, NANCY for endometriosis,, bladder plication with mesh, vaginal colpopexy, colorrhaphy, pubovaginal sling,shoulder surgery , pelvic fracture with repair, femur fracture related to non cancerous tumor
with admission to on 08/15 with chronic constipation and diarrhea with worsening symptoms over last few months. In review with patient she admits to follow with Dr. Roger with low fodmap diet and use of colace with mag citrate regiment. Around
March she began with LLQ pain. She states in May had trip to [facility] with severe pain with passage of large amount of stool and coffee ground appearing stool. Since that time she has has several bouts of diverticulitis with multiple
antibiotics course. She had bout in June with return about 1 week after that time with with urinary retention and enema with constipation. Repeat CT in July with continued pain with Augmentin course. Repeat imaging at this time with mild acute
sigmoid diverticulitis. No evidence for perforation or pericolonic abscess. She now presents again 08/14 with continued pain and diverticulitis. Despite inpatient for 10 day with antibiotics she still complaints of abdominal pain.
In further review with patient she was noted noted with fever or leukocytosis but noted chills. She admits to about 7 lbs wt loss with ongoing nausea. She rates pain as 12/10 on admission now 4/10 but will go up to 8/10 with eating. She also
complaints of abnormal stools with no formed stool for 2 years. She states stools are loose or coffee ground consistency. She has tried multiple other stool regiments in past without improvement. She has been scheduled for colonoscopy but date
pushed back due to recurrent diverticulitis.
08/14/24 CT A/p IV and oral Mild acute sigmoid diverticulitis. No evidence for perforation or pericolonic abscess.
07/20/24 CT A/p Mild acute diverticulitis involving the mid to distal sigmoid colon. No perforation or abscess.Constipation with mild colonic fecal burden. No bowel obstruction.
07/07/24- Abd X ray- non obstruction, bowel gas pattern, small volume scatterd colonic stool
06/30/24 CT A/p with IV and oral contrast 1. Acute uncomplicated sigmoid diverticulitis. 2. Mild to moderate constipation.
06/30/24 obst series Small faint nodular opacity along the left lower chest which could represent a nipple shadow. Repeat PA view with nipple markers recommended.Small volume colonic stool. Nonobstructive intestinal bowel gas pattern.
Ultrasound October 2023 with subtle 1.6 cm hyperechoic focus in the right lobe of the giovanni hepatis which may represent a hemangioma or possible focal fatty infiltration.
Anorectal manometry October 2023 pelvic floor dyssynergia type I, delayed rectal sensation, RAIR intact, failed balloon expulsion test.
--10/03/23 Defecography: Defacography: 1. DYSSYNERGIC DEFECATION with inadequate opening of the anal canal and impaired evacuation ofrectal contrast. 2. Small anterior rectocele. 3. Small enterocele.
--10/18/2022 gastric emptying study: Normal
-- 09/28/2022 EGD: Normal esophagus. Mucosal nodule found in the esophagus. Erythematous mucosa in the stomach. Few gastric polyps. Normal examined duodenum. 1 cm hiatal hernia. Biopsies showing mild chronic inactive gastritis of the stomach, fundic
gland polyps, negative for celiac, H. pylori, EOE, or Li's esophagus.
--CT scan done for abdominal pain August 2022 which was normal and showed moderate fecal material in the colon moderately improved.
--HIDA scan 2021 which showed EF of 88%. Ultrasound showed no stones. Thought was that symptoms seem to be correlating with biliary attacks which prompted the cholecystectomy. Path showed chronic cholecystitis.
--Colonoscopy 2021 Dr. Roger which showed a 5 mm polyp in the cecum that was sessile move a jumbo. Hemorrhoids. Normal mucosa is seen. Biopsies taken for microscopic colitis. Pathology showed tubular adenoma and normal colon pathology.
Recommended a repeat colonoscopy in 5 years.
Past Medical History
Past Medical History: Cancer (lymphoma, skin CA), Hypercholesterolemia and Other (IBS, atypical hyperplasia breast, osteopenia, bronchitis, c-diff )
Past Surgical History: Appendectomy, Cholecystectomy, Gynecological (D+E, NANCY for endometriosis, vaginal colpopexy, cohrrhaphy, pubovaginal sling ), Orthopedic (shoulder surgery , pelvic fracture with repair, femur fracture related to non cancerous
tumor), Urological (bladder plication with mesh) and Other (lap BSO, CHAO, LPS-BTL, thryoidectomy, cataract surgery )
Social History
Tobacco: Non-Smoker
Alcohol: Occasional
Drug: None
Personal:
Living: With Family
Employment: Retired
Family History
Family History: Other (sister with rectal and urotherial CA, maternal uncle with colon CA, father with esophageal dilations)
Allergies / Home Medications
Allergy/AdvReac Type Severity Reaction Status Date / Time
clindamycin Allergy Unknown Verified 08/14/24 12:51
simvastatin Allergy Unknown Verified 08/14/24 12:51
Sulfa (Sulfonamide Allergy Hives Verified 08/14/24 12:51
Antibiotics) BACTRIM
sulfamethoxazole Allergy Hives Verified 08/14/24 12:51
BACTRIM
trimethoprim Allergy Hives Verified 08/14/24 12:51
BACTRIM
�Medication �Instructions �Recorded
raloxifene 60 mg tablet 60 mg PO QPM Hormonal Agent 04/01/13
rosuvastatin 40 mg tablet 40 mg PO HS High Cholesterol 06/14/21
cholecalciferol (vitamin D3) 25 2,000 units PO DAILY #28 tabs 07/21/21
mcg (1,000 unit) tablet
multivitamin with minerals-folic 1 tab PO DAILY Supplement 09/27/21
acid 80 mcg chewable tablet
ascorbic acid (vitamin C) 500 mg 1,000 mg PO DAILY Supplement 07/07/24
tablet (Vitamin C)
esomeprazole magnesium 40 mg 40 mg PO DAILY Gastrointestinal 07/07/24
capsule,delayed release (Nexium) Issue
zolpidem 10 mg tablet (Ambien) 10 mg PO HSPRN PRN sleep 07/07/24
magnesium citrate 100 mg tablet 200 mg PO HS Electrolyte Repletion 08/14/24
Review of Systems
-
History Source: Patient and Family
Constitutional: Reports Weight Loss
EENT: Reports No Symptoms
Respiratory: Reports No Symptoms
Cardiac: Reports No Symptoms
Abdomen/GI: Reports Abdominal Pain, Nausea, Diarrhea (with no formed stools, soft and coffee ground like stool) and Constipated
: Reports Difficulty Voiding (x1 several weeks ago without recurrence )
Musculoskeletal: Reports No Symptoms
Skin: Reports No Symptoms
Neurological: Reports No Symptoms
Endocrine: Reports No Symptoms
Hematologic/Lymphatic: Reports No Symptoms
Vital Signs
Temp Pulse Resp BP Pulse Ox
97.5 F 68 18 106/62 99
08/24/24 08:30 08/24/24 08:30 08/24/24 08:30 08/24/24 08:30 08/24/24 08:30
Physical Exam
Exam
General: Well Developed, Well Nourished and No Apparent Distress
HEENT: Normocephalic and Anicteric
Respiratory: Clear
Cardiac: Regular Rhythm
GI: Soft, Non Distended and Tender (diffuse with minimal palpation, worses LLQ )
Musculoskeletal: No Cyanosis
Skin: Warm and Dry
Neuro: Awake, Alert and AO x 3
Psych: Calm
Results
WBC 3.5 10^3/uL (4.8-10.8) L 08/24/24 05:32
Hgb 12.5 g/dL (12.0-16.0) 08/24/24 05:32
Hct 36.2 % (37.0-47.0) L 08/24/24 05:32
MCV 88.1 fL (81.0-99.0) 08/24/24 05:32
Plt Count 167 10^3/uL (130-400) 08/24/24 05:32
Absolute Neuts (auto) 3.1 10^3/uL (1.4-6.5) 08/14/24 13:08
Sodium 141 mmol/L (135-145) 08/24/24 05:32
Potassium 4.4 mmol/L (3.5-5.1) 08/24/24 05:32
Chloride 108 mmol/L (98-107) H 08/24/24 05:32
Carbon Dioxide 27 mmol/L (22-30) 08/24/24 05:32
BUN 16 mg/dl (7-17) 08/24/24 05:32
Creatinine 0.8 mg/dL (0.6-1.0) 08/24/24 05:32
Calcium 9.6 mg/dl (8.4-10.2) 08/24/24 05:32
Total Bilirubin 0.7 mg/dl (0.2-1.3) 08/24/24 05:32
AST 33 U/L (14-36) 08/24/24 05:32
ALT 55 U/L (0-35) H 08/24/24 05:32
Alkaline Phosphatase 53 U/L (38-126) 08/24/24 05:32
Lipase 41 U/L (23-300) 08/14/24 13:08
Diagnostic Image Results:
08/14/24 CT A/p IV and oral Mild acute sigmoid diverticulitis. No evidence for perforation or pericolonic abscess.
07/20/24 CT A/p Mild acute diverticulitis involving the mid to distal sigmoid colon. No perforation or abscess.Constipation with mild colonic fecal burden. No bowel obstruction.
07/07/24- Abd X ray- non obstruction, bowel gas pattern, small volume scatterd colonic stool
06/30/24 CT A/p with IV and oral contrast 1. Acute uncomplicated sigmoid diverticulitis. 2. Mild to moderate constipation.
06/30/24 obst series Small faint nodular opacity along the left lower chest which could represent a nipple shadow. Repeat PA view with nipple markers recommended.Small volume colonic stool. Nonobstructive intestinal bowel gas pattern.
Ultrasound October 2023 with subtle 1.6 cm hyperechoic focus in the right lobe of the giovanni hepatis which may represent a hemangioma or possible focal fatty infiltration.
Anorectal manometry October 2023 pelvic floor dyssynergia type I, delayed rectal sensation, RAIR intact, failed balloon expulsion test.
--10/03/23 Defecography: Defacography: 1. DYSSYNERGIC DEFECATION with inadequate opening of the anal canal and impaired evacuation ofrectal contrast. 2. Small anterior rectocele. 3. Small enterocele.
--10/18/2022 gastric emptying study: Normal
-- 09/28/2022 EGD: Normal esophagus. Mucosal nodule found in the esophagus. Erythematous mucosa in the stomach. Few gastric polyps. Normal examined duodenum. 1 cm hiatal hernia. Biopsies showing mild chronic inactive gastritis of the stomach, fundic
gland polyps, negative for celiac, H. pylori, EOE, or Li's esophagus.
--CT scan done for abdominal pain August 2022 which was normal and showed moderate fecal material in the colon moderately improved.
--HIDA scan 2021 which showed EF of 88%. Ultrasound showed no stones. Thought was that symptoms seem to be correlating with biliary attacks which prompted the cholecystectomy. Path showed chronic cholecystitis.
--Colonoscopy 2021 Dr. Roger which showed a 5 mm polyp in the cecum that was sessile move a jumbo. Hemorrhoids. Normal mucosa is seen. Biopsies taken for microscopic colitis. Pathology showed tubular adenoma and normal colon pathology.
Recommended a repeat colonoscopy in 5 years.
Assessment / Plan
-
Pt is a 69yo presents with chronic constipation, pelvic floor dysfunction (with prior PFPT with improvement with therapy in past), non hodgkin's lymphoma with prior radiation to neck, hypothyroidism, HLD, IBS, c-diff, lap- BSO, lap CHAO,
thyroidectomy, appe, dar, pelvic fx repair, D+E, NANCY for endometriosis,, bladder plication with mesh, vaginal colpopexy, colorrhaphy, pubovaginal sling,shoulder surgery , pelvic fracture with repair, femur fracture related to non cancerous tumor
with admission to on 08/15 with chronic constipation and diarrhea with worsening symptoms over last few months. In review with patient she admits to follow with Dr. Roger with low fodmap diet and use of colace with mag citrate regiment. Around
March she began with LLQ pain. She states in May had trip to [facility] with severe pain with passage of large amount of stool and coffee ground appearing stool. Since that time she has has several bouts of diverticulitis with multiple
antibiotics course. She had bout in June with return about 1 week after that time with with urinary retention and enema with constipation. Repeat CT in July with continued pain with Augmentin course. Repeat imaging at this time with mild acute
sigmoid diverticulitis. No evidence for perforation or pericolonic abscess. She now presents again 08/14 with continued pain and diverticulitis. Despite inpatient for 10 day with antibiotics she still complaints of abdominal pain. She also has issue
with nausea, wt loss, loose and coffee ground stools.he has been scheduled for colonoscopy but date pushed back due to recurrent diverticulitis.
08/14/24 CT A/p IV and oral Mild acute sigmoid diverticulitis. No evidence for perforation or pericolonic abscess.
07/20/24 CT A/p Mild acute diverticulitis involving the mid to distal sigmoid colon. No perforation or abscess.Constipation with mild colonic fecal burden. No bowel obstruction.
07/07/24- Abd X ray- non obstruction, bowel gas pattern, small volume scatterd colonic stool
06/30/24 CT A/p with IV and oral contrast 1. Acute uncomplicated sigmoid diverticulitis. 2. Mild to moderate constipation.
06/30/24 obst series Small faint nodular opacity along the left lower chest which could represent a nipple shadow. Repeat PA view with nipple markers recommended.Small volume colonic stool. Nonobstructive intestinal bowel gas pattern.
Ultrasound October 2023 with subtle 1.6 cm hyperechoic focus in the right lobe of the giovanni hepatis which may represent a hemangioma or possible focal fatty infiltration.
Anorectal manometry October 2023 pelvic floor dyssynergia type I, delayed rectal sensation, RAIR intact, failed balloon expulsion test.
--10/03/23 Defecography: Defacography: 1. DYSSYNERGIC DEFECATION with inadequate opening of the anal canal and impaired evacuation ofrectal contrast. 2. Small anterior rectocele. 3. Small enterocele.
--10/18/2022 gastric emptying study: Normal
-- 09/28/2022 EGD: Normal esophagus. Mucosal nodule found in the esophagus. Erythematous mucosa in the stomach. Few gastric polyps. Normal examined duodenum. 1 cm hiatal hernia. Biopsies showing mild chronic inactive gastritis of the stomach, fundic
gland polyps, negative for celiac, H. pylori, EOE, or Li's esophagus.
--CT scan done for abdominal pain August 2022 which was normal and showed moderate fecal material in the colon moderately improved.
--HIDA scan 2021 which showed EF of 88%. Ultrasound showed no stones. Thought was that symptoms seem to be correlating with biliary attacks which prompted the cholecystectomy. Path showed chronic cholecystitis.
--Colonoscopy 2021 Dr. Roger which showed a 5 mm polyp in the cecum that was sessile move a jumbo. Hemorrhoids. Normal mucosa is seen. Biopsies taken for microscopic colitis. Pathology showed tubular adenoma and normal colon pathology.
Recommended a repeat colonoscopy in 5 years.
last stool cultures -- 07/20- with neg stool cx, c-diff, O+P, giardia, crypto and repeat Cdiff neg 08/15
-continued LLQ abdominal pain
-recurrent diverticulitis
-change in stool pattern with hx chronic constipation
-wt loss
-hx pelvic floor dysfunction with prior pelvic floor PT
other med problems:
- non hodgkin's lymphoma with prior radiation to neck
- hypothyroidism
- HLD
-IBS
- c-diff 10 years ago
- lap- BSO
- lap CHAO
- thyroidectomy
-prior appe and dar
-pelvic fx repair
-D+E
- NANCY for endometriosis
-bladder plication with mesh
- vaginal colpopexy, colorrhaphy, pubovaginal sling,shoulder surgery
-hx pelvic fracture with repair,
-femur fracture related to non cancerous tumor
PLAN:
etiology of ongoing abdominal pain related to continued diverticulitis vs adhesive disease with multiple pelvis interventions vs other
plan for repeat CT today
recent imaging with neg stool studies
will review with Dr. Adams
pt has reviewed with surgery for eventual surgical resection
diet as tolerated
family updated
-
-
Thank you for consultation and allowing me to participate in the patient's care. Please call the conference coordinator GI physician during the after hours with any questions or concerns.
--- NOTE | 2024-08-24 11:14 | W.PN.HOSP.TC ---
Today's Communication/Plan
-
Assessment / Plan
Assessment / Plan
NAD
Scleral Anicteric, wearing corrective lenses
MMM
No JVD
CTABL
RRR, S1/S2
Soft, left lower quadrant tenderness, ND, BS+
Warm, Dry
AAOx3
Calm
Acute diverticulitis - mild uncomplicated on imaging and exam but recurrent on history and failure of outpatient tx
Pain, ongoing, tenderness noted on exam
Surgery ordered a CT abdomen pelvis and consulted GI.
- Negative C Diff
- pain control and antiemetics
- Appreciate colorectal surgery & ID input.
Antibiotics with ertapenem until 08/31 followed by levofloxacin Flagyl for additional 10 days
- Case management working on outpatient infusion center versus home infusion center
Left eye conjunctivitis, likely viral ( pink eye)
No yellow/greenish thick discharge.
Much less redness. Right eye normal. No blurred vision, no pain or tearing.
Supportive care with artificial tears completed optic antibiotic on 08/23
Continue vitamin D supplementation for history of vitamin D deficiency
GERD
Continue PPI
Hyperlipidemia
Continue Crestor
Anticipated Discharge: 24 - 48 hours
Subjective/Interval History
-
Date of Service: August 24, 2024
Seen and examined. No new complaint. No acute overnight event
Had tomato soup last night. Since then has had abdominal pain. 4 episodes of diarrhea.
Objective Data
-
Labs:
Laboratory Results
08/24/24
05:32
WBC 3.5 L
Hgb 12.5
Hct 36.2 L
Plt Count 167
Sodium 141
Potassium 4.4
Chloride 108 H
Carbon Dioxide 27
BUN 16
Creatinine 0.8
Glucose 97
Calcium 9.6
Total Bilirubin 0.7
AST 33
ALT 55 H
Alkaline Phosphatase 53
Vital Signs:
Vital Signs
Temp Pulse Resp BP Pulse Ox
97.5 F 68 18 106/62 99
08/24/24 08:30 08/24/24 08:30 08/24/24 08:30 08/24/24 08:30 08/24/24 08:30
I&O
08/23/24 08/24/24 08/25/24
06:59 06:59 06:59
Intake Total 1500 / 2460 2640 / 2640 960 / 960
Balance 1500 / 2460 2640 / 2640 960 / 960
[2024-08-24] MEDS: INVANZ 60 MG IV (11:39)
--- NOTE | 2024-08-24 13:33 | W.PN.ID1 ---
Date of Service
Date of Service: August 24, 2024
Today's Communication
Continue antibiotics.
Assessment / Plan
Acute recurrent sigmoid diverticulitis
Subjective chills
Diarrhea
HLD
Hypothyroidism
Lymphoma
Recommendations:
Continue ertapenem.
Patient reports desire to go on cruise in the [place] (leaving 09/02).
Script written for ertapenam to continue through 08/31. Prescription placed on paper chart.
Patient also investigating whether outpatient infusion is a possibility for the remaining days she needs IV antibiotics.
If on 08/31 she is feeling well, she can be transition to an oral regimen of levofloxacin and metronidazole to continue for an additional 10 days or so.
Monitor white count and temperature curve.
Monitor pain level.
Patient for repeat CT
����������������������������������������������������������
Chief Complaint
-: Other (Diverticulitis)
Subjective / Review of Systems
Review of Systems: No Fever, No Chills and Abdominal Pain (minimal)
Vital Signs / Physical Exam
Vital Signs
Vital Signs
Temp Pulse Resp BP Pulse Ox
97.5 F 68 18 106/62 99
08/24/24 08:30 08/24/24 08:30 08/24/24 08:30 08/24/24 08:30 08/24/24 08:30
Physical Exam
Constitutional: No Acute Distress, Comfortable and Non-toxic
Eyes: Sclera Anicteric
Pulmonary: Non Labored
Gastrointestinal: Non Distended
Neurological: Awake and Alert
Psychological: Calm
Objective Data
Lab Data
Lab Results
08/24/24 05:32
08/24/24 05:32
Estimated Creat Clear 65 ml/min 08/24/24 05:32
Lactic Acid 0.6 mmol/L (0.7-2.0) L 08/14/24 16:31
Total Bilirubin 0.7 mg/dl (0.2-1.3) 08/24/24 05:32
AST 33 U/L (14-36) 08/24/24 05:32
ALT 55 U/L (0-35) H 08/24/24 05:32
Alkaline Phosphatase 53 U/L (38-126) 08/24/24 05:32
C-Reactive Protein 9.70 mg/L (0.0-10.00) 08/16/24 04:07
Most recent labs reviewed.
Micro Results:
08/15/24 14:26 C. difficile [facility] Antigen & Toxins - Final
Feces/Stool Negative for toxigenic C.difficile
Imaging:
08/14/2024 CT abdomen/pelvis with contrast: Mild colonic diverticulosis. Small amount of inflammatory fat stranding about a diverticulum in the sigmoid colon most suggestive of mild sigmoid diverticulitis. No bowel obstruction. No extraluminal
fluid. Please see full dictation for additional detail.
[2024-08-24 15:15] VITALS: BP 136/73
[2024-08-24] MEDS: EVISTA 60 MG PO (17:59)
[2024-08-24] MEDS: LOVENOX 40 MG SC (18:00)
[2024-08-24 19:00] VITALS: BP 133/70
[2024-08-24] MEDS: CRESTOR 40 MG PO (21:15)
[2024-08-24] MEDS: AMBIEN 5 MG PO (22:19)
[2024-08-24] MEDS: ROXICODONE 5 MG PO (22:57)
[2024-08-24 23:00] VITALS: BP 115/59
[2024-08-25] MEDS: CILOXAN 0.3% OPHTHALMIC SOLUTION 1 DROP OPHTH ×4 (06:20→23:04)
[2024-08-25 08:00] VITALS: BP 110/62
[2024-08-25] MEDS: PROTONIX 40 MG PO (08:32)
[2024-08-25] MEDS: REFRESH EYE DROPS (PF) 1 DROPS OPHTH ×4 (08:32→21:31)
--- NOTE | 2024-08-25 10:42 | W.PN.HOSP.TC ---
Today's Communication/Plan
-
Assessment / Plan
Assessment / Plan
NAD
Scleral Anicteric, wearing corrective lenses
MMM
No JVD
CTABL
RRR, S1/S2
Soft, left lower quadrant tenderness, ND, BS+
Warm, Dry
AAOx3
Calm
Acute diverticulitis - mild uncomplicated on imaging and exam but recurrent on history and failure of outpatient tx
Pain, ongoing, tenderness noted on exam
Surgery ordered a CT abdomen pelvis and consulted GI.
- Negative C Diff
- pain control and antiemetics
- Appreciate colorectal surgery & ID input.
- Antibiotics with ertapenem until 08/31 followed by levofloxacin Flagyl for additional 10 days
- Midline placed, plan to come to the outpatient infusion center
- Repet CT showed a spot in the colon, unclear as to if this is stool or a mass. THerefore, Colorectal surgery consulted GI
Left eye conjunctivitis, likely viral ( pink eye)
No yellow/greenish thick discharge.
Much less redness. Right eye normal. No blurred vision, no pain or tearing.
Supportive care with artificial tears completed optic antibiotic on 08/23
Continue vitamin D supplementation for history of vitamin D deficiency
GERD
Continue PPI
Hyperlipidemia
Continue Crestor
Anticipated Discharge: 24 - 48 hours
Subjective/Interval History
-
Date of Service: August 25, 2024
Seen and examined. No new complaints. No acute overnight events.
Updated about imaging findings. Discussed the discussion that she had with Dr. Henry over the phone last night. Awaiting GI evaluation.
Aware that she can come to the outpatient infusion center for free opposed to paying $800 for infusion at home
Objective Data
-
Vital Signs:
Vital Signs
Temp Pulse Resp BP Pulse Ox
98.2 F 68 12 110/62 99
08/25/24 08:00 08/25/24 08:00 08/25/24 08:00 08/25/24 08:00 08/25/24 08:00
I&O
08/24/24 08/25/24 08/26/24
06:59 06:59 06:59
Intake Total 2640 / 2640 1440 / 1440
Balance 2640 / 2640 1440 / 1440
--- NOTE | 2024-08-25 11:08 | W.PN.GI.CBS2 ---
Today's Communication / Plan
-
cscope tomorrow
Assessment / Plan
-
69 yo F pmh constipation follows with me outpatient with recurrent diverticulitis.
CT yesterday with NO diverticulitis but questionable mobile mass vs stool.
D/w Drs. Diggs, Fadi, Jese.
Plan cscope tomorrow - r/a/b reviewed with patient - risks inc but not limited to bleeding, infection, perforation, missed lesion.
If cscope negative from GI POV could be d/c tomorrow.
ID has set up outpatient antibiotics IV.
Subjective
Subjective
Date of Service: August 25, 2024
large BM after rectal contrast
pain present but better
Objective
Data Reviewed
Laboratory Data:
Laboratory Results
08/24/24 05:32
08/24/24 05:32
Laboratory Results
Total Bilirubin 0.7 mg/dl (0.2-1.3) 08/24/24 05:32
AST 33 U/L (14-36) 08/24/24 05:32
ALT 55 U/L (0-35) H 08/24/24 05:32
Alkaline Phosphatase 53 U/L (38-126) 08/24/24 05:32
Lipase 41 U/L (23-300) 08/14/24 13:08
Vital Signs and I&O:
Vital Signs
Temp Pulse Resp BP Pulse Ox
98.2 F 68 12 110/62 99
08/25/24 08:00 08/25/24 08:00 08/25/24 08:00 08/25/24 08:00 08/25/24 08:00
I&O
08/24/24 08/25/24 08/26/24
06:59 06:59 06:59
Intake Total 2640 / 2640 1440 / 1440
Balance 2640 / 2640 1440 / 1440
Physical Exam
Physical Exam
GI: Non Distended and Tender (minimally)
--- NOTE | 2024-08-25 12:00 | CM ---
CM met with Yasemin to discuss plans for outpatient infusion. Appointment was arranged for tomorrow at 10am, however Yasemin will be having a colonoscopy tomorrow; if no findings, could be ready for discharge 08/27/2024. CM called outpatient
infusion to make them aware and requested the earliest appointment for 08/28/2024; awaiting response.
Plan: Discharge to home with outpatient infusion when medically cleared.
[facility]
Located at the [facility], 3rd floor [place] [address]
[2024-08-25] MEDS: INVANZ 60 MG IV (13:21)
[2024-08-25 15:00] VITALS: BP 117/64
--- NOTE | 2024-08-25 15:35 | W.PN.ID1 ---
Date of Service
Date of Service: August 25, 2024
Today's Communication
Continue antibiotics.
Assessment / Plan
Acute recurrent sigmoid diverticulitis
Subjective chills
Diarrhea
HLD
Hypothyroidism
Lymphoma
Recommendations:
Continue ertapenem through 08/31.
Patient will be receiving infusion and OID
Thereafter, if feeling improved can be transition to an oral regimen of levofloxacin/metronidazole to continue for an additional 10 days.
Patient reports desire to go on cruise in the [employer] (leaving 09/02).
Monitor white count and temperature curve.
Monitor pain level.
Patient for colonoscopy later today.
����������������������������������������������������������
Chief Complaint
-: Other (Diverticulitis)
Subjective / Review of Systems
Patient reports some improvement in abdominal discomfort. Currently awaiting colonoscopy.
Review of Systems: No Fever and No Chills
Vital Signs / Physical Exam
Vital Signs
Vital Signs
Temp Pulse Resp BP Pulse Ox
98.1 F 72 19 117/64 99
08/25/24 15:00 08/25/24 15:00 08/25/24 15:00 08/25/24 15:00 08/25/24 15:00
Physical Exam
Constitutional: No Acute Distress, Comfortable and Non-toxic
Eyes: Sclera Anicteric
Pulmonary: Non Labored; Negative Wheezes, Rales or Rhonchi
Gastrointestinal: Soft, Tender, Non Distended and Normal Bowel Sounds
Extremities: Negative Edema, Cyanosis or Erythema
Neurological: Awake and Alert
Psychological: Calm
Objective Data
Lab Data
Lab Results
08/24/24 05:32
08/24/24 05:32
Estimated Creat Clear 65 ml/min 08/24/24 05:32
Lactic Acid 0.6 mmol/L (0.7-2.0) L 08/14/24 16:31
Total Bilirubin 0.7 mg/dl (0.2-1.3) 08/24/24 05:32
AST 33 U/L (14-36) 08/24/24 05:32
ALT 55 U/L (0-35) H 08/24/24 05:32
Alkaline Phosphatase 53 U/L (38-126) 08/24/24 05:32
C-Reactive Protein 9.70 mg/L (0.0-10.00) 08/16/24 04:07
Most recent labs reviewed.
Micro Results:
08/15/24 14:26 C. difficile GDH Antigen & Toxins - Final
Feces/Stool Negative for toxigenic C.difficile
Imaging:
08/14/2024 CT abdomen/pelvis with contrast: Mild colonic diverticulosis. Small amount of inflammatory fat stranding about a diverticulum in the sigmoid colon most suggestive of mild sigmoid diverticulitis. No bowel obstruction. No extraluminal
fluid. Please see full dictation for additional detail.
[2024-08-25] MEDS: EVISTA 60 MG PO (17:23)
[2024-08-25] MEDS: LOVENOX 40 MG SC (17:23)
[2024-08-25] MEDS: GAVILAX 238 GM PO (17:30)
[2024-08-25] MEDS: ZOFRAN 4 MG IV (20:41)
[2024-08-25] MEDS: CRESTOR 40 MG PO (21:31)
[2024-08-25] MEDS: ROXICODONE 5 MG PO (21:31)
[2024-08-25 23:03] VITALS: BP 122/64
[2024-08-26] VITALS (11 sets, daily range): BP systolic 101–132; BP diastolic 54–74
[2024-08-26] MEDS: MIRALAX 125 GRAMS PO (05:12)
--- NOTE | 2024-08-26 05:20 | DOWNTIME ---
Addendum entered by Joseph Garrison RN 08/26/24 14:13:
Correction to downtime 08/26/2024 from 0100 to 08/26/24 at 0415.
Original Note:
There was a [facility] Downtime on 08/25/2024 from 0100 to 08/26/2024 at 0415. Downtime documentation of patient's care, including medication administrations, has been reconciled in the electronic record per guidelines. Refer to the
patient's paper chart under the miscellaneous tab to see printed paper medication records and downtime forms.
[2024-08-26] MEDS: CILOXAN 0.3% OPHTHALMIC SOLUTION 1 DROP OPHTH ×4 (05:49→23:38)
[2024-08-26] MEDS: REFRESH EYE DROPS (PF) 1 DROPS OPHTH ×4 (08:09→21:07)
[2024-08-26] MEDS: PROTONIX 40 MG PO (08:10)
--- NOTE | 2024-08-26 11:15 | W.PN.UPDATE ---
Update Note
Progress Note Update
pt c/o lot of pain post procedure
will do stat xray and keep npo
[2024-08-26] MEDS: INVANZ 60 MG IV (12:05)
[2024-08-26] MEDS: DILAUDID 0.5 MG IV (12:06)
--- NOTE | 2024-08-26 12:52 | W.PN.UPDATE ---
Update Note
Progress Note Update
pain improved but got pain medication boat tender llq
xr neg
will get ct to ensure no complication but low suspicion
if ct normal adv clear liquid
if no pain tmwr, trial of diet and possible dc tmwr
she may have a visceral hypersensitivity leading to her being hypersensitive
cscope also tortuous sigmoid and shortened
--- NOTE | 2024-08-26 13:18 | W.PN.ID1 ---
Date of Service
Date of Service: August 26, 2024
Today's Communication
Continue antibiotics. See below�
Assessment / Plan
Acute recurrent sigmoid diverticulitis
Subjective chills
Diarrhea
HLD
Hypothyroidism
Lymphoma
Recommendations:
Continue ertapenem through 08/31.
- Patient will be receiving infusion in [facility]
Thereafter, can be transition to an oral regimen of levofloxacin 500 mg qday / metronidazole 500 mg po bid, times 10 days.
Patient reports plan to go on cruise in the [employer] (leaving 09/02).
Monitor white count and temperature curve.
Monitor pain level.
����������������������������������������������������������
Chief Complaint
-: Other (Diverticulitis)
Subjective / Review of Systems
Patient seen and examined. Reports abdominal pain following colonoscopy earlier today.
Review of Systems: No Fever and No Chills
Vital Signs / Physical Exam
Vital Signs
Vital Signs
Temp Pulse Resp BP Pulse Ox
97.8 F 62 18 122/64 98
08/26/24 12:30 08/26/24 12:30 08/26/24 12:30 08/26/24 12:30 08/26/24 12:30
Physical Exam
Constitutional: No Acute Distress, Comfortable and Non-toxic
Eyes: Sclera Anicteric
Pulmonary: Non Labored; Negative Wheezes, Rales or Rhonchi
Gastrointestinal: Soft, Tender, Non Distended, Normal Bowel Sounds and No Guarding
Extremities: Negative Edema, Cyanosis or Erythema
Neurological: Awake and Alert
Psychological: Calm
Objective Data
Lab Data
Lab Results
08/24/24 05:32
08/24/24 05:32
Estimated Creat Clear 65 ml/min 08/24/24 05:32
Lactic Acid 0.6 mmol/L (0.7-2.0) L 08/14/24 16:31
Total Bilirubin 0.7 mg/dl (0.2-1.3) 08/24/24 05:32
AST 33 U/L (14-36) 08/24/24 05:32
ALT 55 U/L (0-35) H 08/24/24 05:32
Alkaline Phosphatase 53 U/L (38-126) 08/24/24 05:32
C-Reactive Protein 9.70 mg/L (0.0-10.00) 08/16/24 04:07
Most recent labs reviewed.
Micro Results:
08/15/24 14:26 C. difficile GDH Antigen & Toxins - Final
Feces/Stool Negative for toxigenic C.difficile
Imaging:
08/14/2024 CT abdomen/pelvis with contrast: Mild colonic diverticulosis. Small amount of inflammatory fat stranding about a diverticulum in the sigmoid colon most suggestive of mild sigmoid diverticulitis. No bowel obstruction. No extraluminal
fluid. Please see full dictation for additional detail.
--- NOTE | 2024-08-26 13:36 | W.PN.HOSP.TC ---
Today's Communication/Plan
-
Assessment / Plan
Assessment / Plan
NAD
Scleral Anicteric, wearing corrective lenses
MMM
No JVD
CTABL
RRR, S1/S2
Soft, left lower quadrant tenderness, ND, BS+
Warm, Dry
AAOx3
Calm
Acute diverticulitis - mild uncomplicated on imaging and exam but recurrent on history and failure of outpatient tx
Pain, ongoing, tenderness noted on exam
Surgery ordered a CT abdomen pelvis and consulted GI.
- Negative C Diff
- pain control and antiemetics
- Appreciate colorectal surgery & ID input.
- Antibiotics with ertapenem until 08/31 followed by levofloxacin Flagyl for additional 10 days
- Midline placed, plan to come to the outpatient infusion center
- Repet CT showed a spot in the colon, unclear as to if this is stool or a mass. THerefore, Colorectal surgery consulted GI
- For colonoscopy today
Left eye conjunctivitis, likely viral ( pink eye)
No yellow/greenish thick discharge.
Much less redness. Right eye normal. No blurred vision, no pain or tearing.
Supportive care with artificial tears completed optic antibiotic on 08/23
Continue vitamin D supplementation for history of vitamin D deficiency
GERD
Continue PPI
Hyperlipidemia
Continue Crestor
Anticipated Discharge: Within 24 hours
Subjective/Interval History
-
Date of Service: August 26, 2024
Seen and examined. No new complaints. No acute overnight events.
Fluid overload will be today
Objective Data
-
Vital Signs:
Vital Signs
Temp Pulse Resp BP Pulse Ox
97.8 F 62 18 122/64 98
08/26/24 12:30 08/26/24 12:30 08/26/24 12:30 08/26/24 12:30 08/26/24 12:30
I&O
08/25/24 08/26/24 08/27/24
06:59 06:59 06:59
Intake Total 1440 / 1440 1200 / 1200
Balance 1440 / 1440 1200 / 1200
--- NOTE | 2024-08-26 13:38 | PTCARENOTE ---
Pt returned to floor post colonoscopy in 10/10 abdominal pain. VSS. PRN IV dilaudid given. pt stated her pain has greatly improved in follow-up pain assessment. Pt sent to CT for further testing. Plan of care ongoing.
--- NOTE | 2024-08-26 13:58 | CM ---
Addendum entered by Franca Khan 08/27/24 14:47:
Pt requested a later time for [facility] tomorrow. 1:45 was the available time slot for 08/28/2024 and pt is agreeable to same.
Addendum entered by Franca Khan 08/27/24 10:52:
Confirmation received from [facility] that patient is scheduled for IV abx tomorrow; 8:30am appointment scheduled. Yasemin is aware of appointment time and has been provided with the information regarding ED on the weekend as well as 10am appointment for
08/31/2024 at [facility]. She will ask [facility] tomorrow when she goes for her visit if there is an earlier time available for Saturday; if not, she is agreeable to the 10am appointment on 08/31/2024.
IMM given; pt's will transport home.
Addendum entered by Franca Khan 08/26/24 16:28:
Case discussed with with Dr. Jennyfer Sawant via TT. Plan for pt to have IV abx here prior to discharge tomorrow; then receive IV abx at [facility] on Saturday, ED on Saturday and Saturday, returning to [facility] on Saturday. Pt request for an early appointment relayed to
[facility] (as early as possible). CM will follow up with [facility] in AM to confirm time for pt's infusion.
Original Note:
Case Management following for discharge to outpatient infusion center. I spoke with [facility] who had anticipated she would start tomorrow; if pt is discharged today, [facility] can accomodate for abx tomorrow. Pt requests an early appointment; [facility] will try to
accommodate her request.
--- NOTE | 2024-08-26 15:01 | W.PN.UPDATE ---
Update Note
Progress Note Update
Ct no perforation
Will do trial of clear liquid diet
[2024-08-26] MEDS: ZOFRAN 4 MG IV (16:00)
[2024-08-26] MEDS: LOVENOX 40 MG SC (17:06)
[2024-08-26] MEDS: EVISTA 60 MG PO (17:07)
[2024-08-26] MEDS: CRESTOR 40 MG PO (21:07)
[2024-08-26] MEDS: AMBIEN 5 MG PO (22:26)
[2024-08-27 03:00] VITALS: BP 89/39
[2024-08-27 03:08] VITALS: BP 86/42
[2024-08-27] MEDS: NSS 500 IV (03:14)
[2024-08-27 04:50] VITALS: BP 109/47
[2024-08-27 05:25] VITALS: BP 106/56
--- NOTE | 2024-08-27 06:31 | PTCARENOTE ---
around 0300, Pt's BP 89/39 HR 85. Manual BP 86/42. Pt asymptomatic. Pt given ambien at 2226. BP checked prior to giving, 111/58. NICKER notified, 500ml bolus ordered. Pt's BP after bolus 106/56 HR 76. Plan of care ongoing.
[2024-08-27] MEDS: CILOXAN 0.3% OPHTHALMIC SOLUTION 1 DROP OPHTH ×2 (06:37→13:02)
[2024-08-27 08:00] VITALS: BP 112/57
[2024-08-27] MEDS: PROTONIX 40 MG PO (09:02)
[2024-08-27] MEDS: REFRESH EYE DROPS (PF) 1 DROPS OPHTH ×2 (09:02→13:02)
--- NOTE | 2024-08-27 09:15 | W.PN.GI.CBS2 ---
Today's Communication / Plan
-
diet if tolerates d/c
Assessment / Plan
-
69 yo F pmh constipation follows with me outpatient with recurrent diverticulitis.
CT 08/25 with NO diverticulitis but questionable mobile mass vs stool.
Cscope 08/26 with small polyps, small tics, tortuous colon, shortened colon, one ? inflammatory polyp not removed due to pt retching.
Pt with pain post procedure XR/CT negative now pain free suspect hypervisceral response to CO2.
Will advance diet to low resiude.
If tolerates, ok GI POV for d/c.
D/w CRS and hospitalist.
Subjective
Subjective
Date of Service: August 27, 2024
no pain feels well
Objective
Data Reviewed
Laboratory Data:
Laboratory Results
08/24/24 05:32
08/24/24 05:32
Laboratory Results
Total Bilirubin 0.7 mg/dl (0.2-1.3) 08/24/24 05:32
AST 33 U/L (14-36) 08/24/24 05:32
ALT 55 U/L (0-35) H 08/24/24 05:32
Alkaline Phosphatase 53 U/L (38-126) 08/24/24 05:32
Lipase 41 U/L (23-300) 08/14/24 13:08
Vital Signs and I&O:
Vital Signs
Temp Pulse Resp BP Pulse Ox
97.9 F 77 16 112/57 100
08/27/24 08:00 08/27/24 08:00 08/27/24 08:00 08/27/24 08:00 08/27/24 08:00
I&O
08/26/24 08/27/24 08/28/24
06:59 06:59 06:59
Intake Total 1200 / 1200 1580 / 1580
Balance 1200 / 1200 1580 / 1580
Physical Exam
Physical Exam
GI: Non Distended and Non Tender
[2024-08-27] MEDS: INVANZ 60 MG IV (13:02)
--- NOTE | 2024-08-27 15:45 | W.DCSUMMARY ---
Discharge Summary
Discharge Data
Date of Admission: 08/14/24
Date of Discharge: 08/27/24
-
Pending Results: No
Hospital Course
69-year-old female with past medical history of nongastric MALT lymphoma, irritable bowel syndrome, hyperlipidemia
Presented with findings consistent with acute diverticulitis therefore started on IV antibiotics IV fluids. Stool studies were obtained that were unrevealing. However, as there is a history of recurrent diverticulitis surgery was consulted for
potential need for operative intervention. Fortunately this was not needed. Repeat CT scans did continue to show diverticulitis without perforation/abscess. He eventually CT scan without evidence of diverticulitis and did show a focal area that
was unclear if this was stool or something more insidious such as a mass. Therefore had a colonoscopy that was completed that did not show malignant to the therefore unlikely it was related to stool.
IV antibiotics initially started on Zosyn, improved therefore advance to ertapenem by ID recommendations.
Outpatient 08/31/2024. Followed by Jacquie for 10 days (start on 09/01).
Will need continued outpatient follow-up with GI and surgery
Was seen on the day of discharge. No new complaints. No acute overnight events.
NAD
Scleral Anicteric, wearing corrective lenses
MMM
No JVD
CTABL
RRR, S1/S2
Soft, left lower quadrant tenderness, ND, BS+
Warm, Dry
AAOx3
Calm
More than 30 minutes spent in discharge including
Final examination of the patient
Summarizing hospital stay
Instructions for continuing care to all relevant caregivers
Preparation of discharge records, prescriptions, and referral forms
Total time spent (in minutes): 33mins
Discharge Plan
-
Patient Disposition: Home (Routine Discharge)
Discharge Diagnosis/Procedures: Acute Diverticulitis
Diet: As tolerated
Activity: As tolerated
Activity Restrictions/Additional Instructions:
Presented with findings consistent with acute diverticulitis therefore started on IV antibiotics IV fluids. Stool studies were obtained that were unrevealing. However, as there is a history of recurrent diverticulitis surgery was consulted for
potential need for operative intervention. Fortunately this was not needed. Repeat CT scans did continue to show diverticulitis without perforation/abscess. He eventually CT scan without evidence of diverticulitis and did show a focal area that
was unclear if this was stool or something more insidious such as a mass. Therefore had a colonoscopy that was completed that did not show malignant to the therefore unlikely it was related to stool.
IV antibiotics initially started on Zosyn, improved therefore advance to ertapenem by ID recommendations. Will continue.
Outpatient 08/31/2024. Followed by Jacquie for 10 days (start on 09/01).
Will need continued outpatient follow-up with GI and surgery
Referrals:
Forrest Rodríguez MD [Family Provider, Family Practice]
Gladis Goetz MD [Active, Gastroenterology] - in two to three days
Josue Diggs MD [Active, ColoRectal] - in two weeks
Prescriptions:
New
Ertapenem [Invanz] 1000 MG
0.9% Sodium Chloride [Nss] 50 ML
120 mls/hr IV Q24H
Ordered By: Mihai Sawant MD
Last Taken: 08/27/24 13:02 60 mls
levofloxacin 500 mg tablet
500 mg PO DAILY Qty: 10 0RF
Rx Instructions:
Start om 09/01/24
metronidazole 500 mg tablet
500 mg PO BID Qty: 20 0RF
Rx Instructions:
start on 09/01/2024
Continued
raloxifene 60 MG tablet
60 mg PO QPM
rosuvastatin 40 MG tablet
40 mg PO HS
cholecalciferol (vitamin D3) 1,000 UNITS tablet
2,000 units PO DAILY Qty: 28 0RF
multivit with min-folic acid 80 mcg Tablet,Chewable
1 tab PO DAILY
esomeprazole magnesium [Nexium] 40 mg Capsule,Delayed Release(Dr/Ec)
40 mg PO DAILY
zolpidem [Ambien] 10 mg Tablet
10 mg PO HSPRN PRN (Reason: sleep)
ascorbic acid (vitamin C) [Vitamin C] 500 MG tablet
1,000 mg PO DAILY
magnesium citrate 100 mg Tablet
200 mg PO HS
Discharge Orders:
Discharge Patient (As Directed); Ordered 08/27/24
Ordered By: Mihai Sawant
Discharge Date and Time
Print Language: ARMENIAN
--- NOTE | 2024-08-27 16:00 | W.PN.ID1 ---
Date of Service
Date of Service: August 27, 2024
Today's Communication
Continue current course of antibiotics. See below�
Assessment / Plan
Acute recurrent sigmoid diverticulitis
Subjective chills
Diarrhea
HLD
Hypothyroidism
Lymphoma
Recommendations:
Continue ertapenem through 08/31.
- Patient will be receiving infusion in [facility]
Thereafter, can be transition to an oral regimen of levofloxacin 500 mg qday / metronidazole 500 mg po bid, times 10 days.
����������������������������������������������������������
Chief Complaint
-: Other (Diverticulitis)
Subjective / Review of Systems
Review of Systems: No Fever, No Chills and No Abdominal Pain
Vital Signs / Physical Exam
Vital Signs
Vital Signs
Temp Pulse Resp BP Pulse Ox
97.9 F 77 16 112/57 100
08/27/24 08:00 08/27/24 08:00 08/27/24 08:00 08/27/24 08:00 08/27/24 08:00
Physical Exam
Constitutional: No Acute Distress and Comfortable
Eyes: Sclera Anicteric
Pulmonary: Non Labored
Gastrointestinal: Non Distended
Extremities: Negative Cyanosis or Erythema
Neurological: Awake and Alert
Psychological: Calm
Objective Data
Lab Data
Lab Results
08/24/24 05:32
08/24/24 05:32
Estimated Creat Clear 65 ml/min 08/24/24 05:32
Lactic Acid 0.6 mmol/L (0.7-2.0) L 08/14/24 16:31
Total Bilirubin 0.7 mg/dl (0.2-1.3) 08/24/24 05:32
AST 33 U/L (14-36) 08/24/24 05:32
ALT 55 U/L (0-35) H 08/24/24 05:32
Alkaline Phosphatase 53 U/L (38-126) 08/24/24 05:32
C-Reactive Protein 9.70 mg/L (0.0-10.00) 08/16/24 04:07
Most recent labs reviewed.
Micro Results:
08/15/24 14:26 C. difficile GDH Antigen & Toxins - Final
Feces/Stool Negative for toxigenic C.difficile
Imaging:
08/14/2024 CT abdomen/pelvis with contrast: Mild colonic diverticulosis. Small amount of inflammatory fat stranding about a diverticulum in the sigmoid colon most suggestive of mild sigmoid diverticulitis. No bowel obstruction. No extraluminal
fluid. Please see full dictation for additional detail.
[2024-08-27 16:02] VITALS: BP 105/53
--- NOTE | 2024-08-27 16:55 | PTCARENOTE ---
Pt discharged with PICC intact for outpatient infusions of antibiotics. No redness, warmth or signs of infection to site. No complaints of pain in area at this time.
== END 2024-08-27 17:04 | disposition home or self-care (01) | DRG 392 ==
LOC: 3 WEST ACU 21:12
PROVIDERS: Internal Medicine; Internal Medicine Gastroenterology; Physician Assistant; Registered Nurse; ADMITTING PHYSICIAN Internal Medicine; ATTENDING PHYSICIAN Hospitalist; CONSULT PHYSICIAN Internal Medicine Gastroenterology; CONSULT PHYSICIAN Internal Medicine Infectious Disease; EMERGENCY PHYSICIAN Emergency Medicine; FAMILY PHYSICIAN Family Medicine; OTHER PHYSICIAN Surgery
PROC: 0DBL8ZX Excision of Transverse Colon, Via Natural or Artificial Opening Endoscopic, Diagnostic (ICD-10-PCS; 2024-08-26)
DX: K57.32 Diverticulitis of large intestine without perforation or abscess without bleeding (principal); C85.90 Non-Hodgkin lymphoma, unspecified, unspecified site; K64.0 First degree hemorrhoids; D12.3 Benign neoplasm of transverse colon; K63.89 Other specified diseases of intestine; E78.00 Pure hypercholesterolemia, unspecified; E89.0 Postprocedural hypothyroidism; Y84.2 Radiological procedure and radiotherapy as the cause of abnormal reaction of the patient, or of later complication, without mention of misadventure at the time of the procedure; B30.9 Viral conjunctivitis, unspecified
CPT/HCPCS: 88305; 74022; 74177; 80048; 80053; 83605; 83690; 85025; 85027; 86140; 87324; 87449; 96361; 96365; 96375; 96376; 99284; J1335; Q9967

== ENCOUNTER 2024-08-31 09:48 | Outpatient (RCR) | payer MEDICARE, OTHER, SELFPAY ==
[2024-08-28 14:05] VITALS: BP 136/69
[2024-08-28] MEDS: INVANZ 60 MG IV (14:15)
[2024-08-29] MEDS: INVANZ 60 MG IV (07:08)
[2024-08-29 07:10] VITALS: BP 122/72
[2024-08-30 07:10] VITALS: BP 112/71
[2024-08-30] MEDS: INVANZ 60 MG IV (07:12)
[2024-08-31 10:07] VITALS: BP 133/60
[2024-08-31] MEDS: INVANZ 60 MG IV (10:19)
[2024-08-31 10:23] LABS: % Basophils 0.5 % (0-2); % Eosinophils 2.6 % (0-6); % Immature Granulocytes 0.2 % (0-0.5); % Lymphocytes 17.7 % (20.5-51.1); % Monocytes 9.1 % (1.7-9.3); % Neutrophils 69.9 % (42.2-75.2); Absolute Eosinophils 0.1 10^3/uL (0-0.7); Absolute Lymphocytes 0.8 10^3/uL (1.2-3.4); Absolute Monocytes 0.4 10^3/uL (0.1-0.6); Hematocrit 34.3 % (37.0-47.0); Hemoglobin 11.9 g/dL (12.0-16.0); Mean Corp Hgb Conc. 34.7 g/dL (33.0-37.0); Mean Corpuscular Volume 86.4 fL (81.0-99.0); Platelet Count 212 10^3/uL (130-400); Red Blood Cell Count 3.97 10^6/uL (4.20-5.40); Red Cell Dist. Width 12.2 % (11.5-14.5); White Blood Cell Count 4.3 10^3/uL (4.8-10.8)
[2024-08-31 11:09] LABS: Blood Urea Nitrogen 7 mg/dl (7-17); Carbon Dioxide 25 mmol/L (22-30); Chloride 104 mmol/L (98-107); Glucose 95 mg/dl (70-99); Potassium 4.3 mmol/L (3.5-5.1); Sodium 136 mmol/L (135-145); eGFR > 60.00
== END 2024-09-01 10:47 | disposition home or self-care (01) ==
LOC: OID 09:48
PROVIDERS: ATTENDING PHYSICIAN Internal Medicine Infectious Disease
DX: K57.92 Diverticulitis of intestine, part unspecified, without perforation or abscess without bleeding (principal)
CPT/HCPCS: 36589; 36591; 80048; 85025; 96365; J1335

== ENCOUNTER → 2024-09-21 17:35 | Outpatient (REF) | payer MEDICARE, OTHER, SELFPAY | LOC: WDC 17:35 | PROVIDERS: ATTENDING PHYSICIAN Obstetrics & Gynecology Gynecology; FAMILY PHYSICIAN Family Medicine | DX: Z12.31 Encounter for screening mammogram for malignant neoplasm of breast (principal); Z12.39 Encounter for other screening for malignant neoplasm of breast | CPT/HCPCS: 77063; 77067 ==

== ENCOUNTER 2024-11-24 15:36 | Inpatient (IN) | payer MEDICARE, OTHER, SELFPAY ==
[2024-11-24] VITALS (7 sets, daily range): BP systolic 112–185; BP diastolic 62–90; BMI 21.1; BMI 20.8
--- NOTE | 2024-11-24 10:37 | ED.GENMED ---
History of Present Illness
<Chele Osborn MD, Resident - Last Filed: 11/24/24 14:23>
General
Chief Complaint: Abdominal Symptoms
Time Seen by Provider: 11/24/24 10:16
History of Present Illness
History of Present Illness:
Patient is a 69-year-old female who presents to the emergency department with acute abdominal pain rated at a 9-10 out of 10. The patient has been unable to eat or drink since the beginning of the pain which started approximately a day and a half
ago. Patient has a history of acute recurrent sigmoid diverticulitis, hyperlipidemia, hypothyroidism, MALT lymphoma, IBD. The patient was admitted in the past to [facility] for acute diverticulitis from 08/14/2024 to 08/27/2024 where she needed to
have IV antibiotics and she was discharged on levofloxacin and Flagyl for an additional 10 days postdischarge. She was discharged with a midline and she received outpatient infusions for her antibiotics. She is slated for bowel resection with
Carl on Saturday but unfortunately this acute episode of abdominal pain started prior to her surgery date. she reached out to Dr. Henry's office who recommended that she present to the emergency department for further evaluation and workup. She
states that she stopped all of her oral medications and is only taking her antibiotics due to concerns of her medications interfering with her upcoming procedure. She denies any chest pain, shortness of breath or chest tightness.
Past History
<Chele Osborn MD, Resident - Last Filed: 11/24/24 14:23>
Past History
ED Past Medical History: Cancer ( lymphoma), Hypercholesterolemia and Hypothyroidism
ED Past Surgical History: Appendectomy, Gynecological, Orthopedic and Other (Biopsy)
Social History
Tobacco: Non-smoker
Alcohol: Occasional
Drug: None
Personal:
Living: with family
Family History
Family History: CAD
Phy Exam
<Chele Osborn MD, Resident - Last Filed: 11/24/24 14:23>
General Physical Exam
General Presentation: severe distress
General age: appears stated age
General Skin: warm and dry
General Habitus: normal and elderly
General Mental: alert
General Hydration: appears well hydrated
Cardiovascular Exam
Cardiovascular Exam: regular rate/rhythm, no edema, no gallop, no JVD and no murmur
Pulmonary Exam
Pulmonary Exam: lungs clear, no respiratory distress, no rales, chest non tender, no crackles, no rhonchi, no stridor, no wheezing and no cough
Gastrointestinal Exam
Gastrointestinal Exam: normal bowel sounds, no masses and tender
Musculoskeletal Exam
Musculoskeletal Exam: full ROM
Skin Exam
Skin Exam: normal color, warm/dry, no rash and no petechia
Psychiatric Exam
Psychiatric Exam: normal mood/affect
Course
<Chlee Osborn MD, Resident - Last Filed: 11/24/24 14:23>
Orders/Labs/Results
Orders:
Orders
11/24/24 10:29
0.9% Sodium Chloride 250 ml [Nss] 250 ml IV BOLUS
HYDROmorphone [Dilaudid] 0.5 mg IV NOW ONE
Ondansetron Injectable [Zofran] 4 mg IV NOW ONE
11/24/24 10:52
Complete Blood Count/With Diff Urgent
Comprehensive Metabolic Panel Urgent
Lipase Urgent
11/24/24 10:54
Iohexol [Omnipaque] See Protocol PO NOW STA
11/24/24 11:44
CT Abd/pelvis W Iv Cont Urgent
Comment:
Reason For Exam: left lower abd pain
11/24/24 14:15
0.9% Sodium Chloride 500 ml [Nss] 500 ml IV BOLUS
11/24/24 Dinner
NPO
Allow oral meds: Yes
Allow clear liquids: No
NPO with Ice Chips: Yes
Abnormal Lab Results
11/24/24
10:52
WBC 3.6 L 10^3/uL
(4.8-10.8)
RBC 4.19 L 10^6/uL
(4.20-5.40)
Absolute Lymphs (auto) 0.7 L 10^3/uL
(1.2-3.4)
Lymphocytes % 19.3 L %
(20.5-51.1)
Sodium 133 L mmol/L
(135-145)
Total Protein 6.1 L g/dl
(6.3-8.2)
11/24/24 10:52
11/24/24 10:52
Vital Signs
Initial and Last Documented VS:
Initial Vital Signs
Temp Pulse Resp BP Pulse Ox
98.1 F 76 18 125/79 100
11/24/24 09:57 11/24/24 09:57 11/24/24 09:57 11/24/24 09:57 11/24/24 09:57
Last Documented Vital Signs
Temp Pulse Resp BP Pulse Ox
98.1 F 63 14 120/65 98
11/24/24 09:57 11/24/24 13:45 11/24/24 13:45 11/24/24 12:00 11/24/24 13:45
Imtiazlt;Josue Rey, - Last Filed: 11/24/24 13:05>
Orders/Labs/Results
Orders:
Orders
11/24/24 10:29
0.9% Sodium Chloride 250 ml [Nss] 250 ml IV BOLUS
HYDROmorphone [Dilaudid] 0.5 mg IV NOW ONE
Ondansetron Injectable [Zofran] 4 mg IV NOW ONE
11/24/24 10:52
Complete Blood Count/With Diff Urgent
Comprehensive Metabolic Panel Urgent
Lipase Urgent
11/24/24 10:54
Iohexol [Omnipaque] See Protocol PO NOW STA
11/24/24 11:44
CT Abd/pelvis W Iv Cont Urgent
Comment:
Reason For Exam: left lower abd pain
11/24/24 14:15
0.9% Sodium Chloride 500 ml [Nss] 500 ml IV BOLUS
11/24/24 Dinner
NPO
Allow oral meds: Yes
Allow clear liquids: No
NPO with Ice Chips: Yes
Abnormal Lab Results
11/24/24
10:52
WBC 3.6 L 10^3/uL
(4.8-10.8)
RBC 4.19 L 10^6/uL
(4.20-5.40)
Absolute Lymphs (auto) 0.7 L 10^3/uL
(1.2-3.4)
Lymphocytes % 19.3 L %
(20.5-51.1)
Sodium 133 L mmol/L
(135-145)
Total Protein 6.1 L g/dl
(6.3-8.2)
11/24/24 10:52
11/24/24 10:52
Vital Signs
Initial and Last Documented VS:
Initial Vital Signs
Temp Pulse Resp BP Pulse Ox
98.1 F 76 18 125/79 100
11/24/24 09:57 11/24/24 09:57 11/24/24 09:57 11/24/24 09:57 11/24/24 09:57
Last Documented Vital Signs
Temp Pulse Resp BP Pulse Ox
98.1 F 63 14 120/65 98
11/24/24 09:57 11/24/24 13:45 11/24/24 13:45 11/24/24 12:00 11/24/24 13:45
<Chele Osborn MD, Resident - Last Filed: 11/24/24 14:23>
*Pulse Oximetry
SaO2: 100
Oxygen Mode of Delivery: Room air
Patient hypoxic: no
*Critical Care Note
Total Time (30-74mins, 75-104mins- exclusive of procedures): Not Applicable
<Chele Osborn MD, Resident - Last Filed: 11/24/24 14:23>
Update Note
Update Note:
Problem List:
Abdominal pain
reduced oral intake
diarrhea
Plan:
IV fluid support
Dilaudid for analgesia
Zofran antiemetic
CBC and CMP ordered
lipase
CT abdomen with IV and oral contrast
Differential Diagnoses:
diverticulitis
acute pancreatitis
IBD
sigmoid volvulus
colitis
Radiology:
- CT of the abdomen and pelvis conducted on 11/24/2024:
No intestinal obstruction or free air. Limited evaluation of intestinal tract without oral contrast with some fluid in nondistended loops of small bowel and some fluid in the nondistended large bowel. Cannot exclude mild enteritis.
Prior cholecystectomy, appendectomy and total hysterectomy.
EKG: Not applicable
Labs:
CBC unremarkable
CMP unremarkable
lipase within normal limit
Updates:
reached out to colorectal surgery in regards to this patient's upcoming procedure on Saturday. Shared findings of this encounter.
Colorectal surgery recommends admission
patient will be admitted to the hospitalist service� plan for IV fluid support, analgesia, antibiotics, and prep for upcoming procedure
ED Attending Note
<Chele Osborn MD, Resident - Last Filed: 11/24/24 14:23>
-
Portions of this chart may have been created with voice recognition software.� Occasional wrong word or��sound alike� substitutions may have occurred due to the inherent limitations of voice recognition software.
<Josue Rey DO - Last Filed: 11/24/24 13:05>
ED Attending Note
Patient seen and examined by attending physician: Yes
I performed a history and physical exam of patient and discussed management with resident, I reviewed resident's note and agree with documented findings and plan of care.: Yes
ED Attending Note:
69-year-old female presents to the emergency room complaining of lower abdominal pain. Patient has a history of diverticulitis which was complicated. She is scheduled for a partial large bowel resection in 3 days. Patient developed pain similar
to her diverticulitis prior to traveling. She ultimately started taking oral antibiotics but has not improved. Patient is known to Dr. Henry. No fever or chills. Decreased oral intake.
General: Awake, Alert, Oriented X3. No acute distress.Vitals: unremarkable
Clear and equal b/l
Heart: Regular rate, no murmurs
Abd: Soft, Nontender, No pulsatile mass
Will obtain CT to exclude intra-abdominal abscess. Discussed with colorectal surgery
Discharge Plan
Departure
Patient Disposition: Admit
Date of Disposition: 11/24/24
Time of Disposition: 13:36
Presentation/result/management discussed w/ accepting MD/DO: Hospitalist
Discharge Problem:
Sigmoid diverticulitis
Instructions: Diverticulitis (DC)
Prescriptions:
No Action
raloxifene 60 MG tablet
60 mg PO QPM
rosuvastatin 40 MG tablet
40 mg PO HS
esomeprazole magnesium [Nexium] 40 mg Capsule,Delayed Release(Dr/Ec)
40 mg PO DAILY
zolpidem [Ambien] 10 mg Tablet
5 mg PO HS
levofloxacin 500 mg tablet
500 mg PO DAILY Qty: 10 0RF
Rx Instructions:
for 8 days starting 11/19/24
estradiol [Estrace] 0.01 % (0.1 mg/gram) Cream
1 appful VAGINAL MOTH
metronidazole 500 mg tablet
500 mg PO TID
Rx Instructions:
for 8 days starting 11/19/24
Referrals:
Forrest Rodríguez MD [Family Provider, Family Practice] - Follow up in 1 week
Interventions
Interventions:
*Risk Screen - Suicide Last Done: 11/24/24 09:57
*General Assessment Last Done: 11/24/24 09:57
*Neglect/Abuse Screening Last Done: 11/24/24 09:57
*ED- Fall Risk Assessment Last Done: 11/24/24 10:41
*ED COVID-19 Vaccine History Last Done: 11/24/24 10:41
LE-Dvgpbr-Atiaejdcvl Assessment Last Done: 11/24/24 11:51
Discharge Date and Time
Print Language: CITIZEN OF [place]
[2024-11-24] MEDS: ZOFRAN 4 MG IV ×2 (10:48→17:25)
[2024-11-24] MEDS: NSS 250 IV (10:48)
[2024-11-24] MEDS: DILAUDID 0.5 MG IV ×2 (10:50→16:05)
[2024-11-24 11:08] LABS: Hematocrit 37.0 % (37.0-47.0); Hemoglobin 12.3 g/dL (12.0-16.0); Mean Corp Hgb Conc. 33.2 g/dL (33.0-37.0); Mean Corpuscular Volume 88.3 fL (81.0-99.0); Nucleated Red Blood Cells % 0 %; Platelet Count 167 10^3/uL (130-400); Red Cell Dist. Width 14.0 % (11.5-14.5)
[2024-11-24 11:19] LABS: ALT (SGPT) 23 U/L (0-35); AST (SGOT) 25 U/L (14-36); Albumin 3.8 g/dl (3.5-5.0); Alkaline Phosphatase 59 U/L (38-126); Blood Urea Nitrogen 11 mg/dl (7-17); Calcium 8.9 mg/dl (8.4-10.2); Carbon Dioxide 25 mmol/L (22-30); Chloride 104 mmol/L (98-107); Estimated Creatinine Clearance 86 ml/min; Glucose 89 mg/dl (70-99); Lipase 33 U/L (23-300); Potassium 4.3 mmol/L (3.5-5.1); Sodium 133 mmol/L (135-145); Total Protein 6.1 g/dl (6.3-8.2); eGFR > 60.00
--- NOTE | 2024-11-24 14:26 | CON.CRS ---
Consultation
-
Date/Time Consultation Requested: 11/24/2024, 14:30
Date/Time Consultation Performed: 11/24/2024, 15:00
Requesting Provider: Chele Osborn MD
Performing Provider: Nas Henry MD
Reason for Consultation: diverticulitis
Medical History
-
Chief Complaint: diverticulitis
History of Present Illness:
69-year-old female, with smoldering diverticulitis, presents to [facility] complaining of abdominal pain. The patient was initially seen in consultation while hospitalized at [place] [id number] open 08/14/2024 to 08/27/2024. Started with left
lower quad abdominal pain March which became worse. She has a history of constipation but had not moved her bowels after several laxatives which prompted a CT on 06/30/2024. This demonstrated acute complete sigmoid diverticulitis. She was
treated with oral antibiotics but return to the ER a week later as her stools became darker with lower abdominal pain. A follow-up CAT scan on 07/20/2024 showed persistent mild sigmoid diverticulitis and she was treated with Augmentin. Her symptoms
of constipation and lower abdominal pain never completely resolved and she was readmitted on 08/14/[address] revealed persistent mild sigmoid diverticulitis. During that hospitalization was afebrile and her WBC was normal. C. difficile was
negative. She was treated IV antibiotics and 62,[address] revealed no inflammation but there was a mild to distal 2 cm focal soft tissue attenuation sigmoid colon. She underwent a colonoscopy on 08/26/2024 Dr. Spears which revealed a localized area
of erythematous mucosa at the rectosigmoid junction and acute angulation. There was also sigmoid diverticula noted and a few small polyps were removed. She then developed abdominal pain of the colonoscopy and CT was unrevealing. She was
discharged home on IV antibiotics which she completed on 08/31/2024 followed by a 10-day course of Levaquin and Flagyl. The decision to convert to oral was made due to a planned cruise trip. She then saw Dr. Henry in the office on 09/24/2024. At
that time she was complaining of mild burning discomfort in her abdomen as well as low appetite. She had lost 12 pounds over the past 4 months. At that point surgery was arranged for a robotic sigmoidectomy with Dr. Henry on 11/27/2024. She called
our office last Rob[place], 11/20/2024 complaining of abdominal pain that happened while she was on a trip to [place]. She had erythromycin in her bag which she used until she came home. She complained of abdominal discomfort when she leans over. I
prescribed her Levaquin and Flagyl which she had been discharged on by ID several months prior. She saw Dr. Spears in the office yesterday complaining of worsening abdominal pain. A stat CAT scan was ordered secondary to the pain. This showed no
intestinal obstruction or free air. Limited valuation of intestinal tract without oral contrast with some fluid in the nondistended loops of small bowel and some fluid in the nondistended large bowel. Cannot exclude mild enteritis. Otherwise
there were no acute findings. In the ER her vital signs are normal. Her WBC is 3.6. We have been consulted for further surgical opinion.
Past Medical History
Past Medical History: Cancer (skin, Non gastric Malt Lymphoma), Hypercholesterolemia, Hypothyroidism and Other (Cancer (skin, Non gastric Malt Lymphoma ), Hypercholesterolemia, Hypothyroidism and Other (IBS, C-diff))
Past Surgical History: Appendectomy, Cholecystectomy, Gynecological and Other (Lap tubal ligation, lap to open abdominal hysterectomy followed by open salpingooophorectomy x2 each about 6 months apart for complications of endometriosis)
Social History
Tobacco: Non-Smoker
Alcohol: None
Personal:
Family History
Family History: Reviewed & Not Pertinent
Allergies / Home Medications
Allergy/AdvReac Type Severity Reaction Status Date / Time
clindamycin Allergy C. Diff Verified 11/24/24 09:57
simvastatin Allergy muscle Verified 11/24/24 09:57
cramps
Sulfa (Sulfonamide Allergy Hives Verified 11/24/24 09:57
Antibiotics) BACTRIM
sulfamethoxazole Allergy Hives Verified 11/24/24 09:57
BACTRIM
trimethoprim Allergy Hives Verified 11/24/24 09:57
BACTRIM
�Medication �Instructions �Recorded �Confirmed �Type
raloxifene 60 mg tablet 60 mg PO QPM Hormonal Agent 04/01/13 11/24/24 History
rosuvastatin 40 mg tablet 40 mg PO HS High Cholesterol 06/14/21 11/24/24 History
esomeprazole magnesium 40 mg 40 mg PO DAILY Gastrointestinal 07/07/24 11/24/24 History
capsule,delayed release (Nexium) Issue
zolpidem 10 mg tablet (Ambien) 5 mg PO HS 07/07/24 11/24/24 History
levofloxacin 500 mg tablet 500 mg PO DAILY #10 tabs 08/26/24 11/24/24 Rx
estradiol 0.01% (0.1 mg/gram) 1 appful vaginal MOTH 11/20/24 11/24/24 History
vaginal cream (Estrace)
metronidazole 500 mg tablet 500 mg PO TID 11/20/24 11/24/24 History
Review of Systems
-
History Source: Patient
Constitutional: Chills
Abdomen/GI: Abdominal Pain (LLQ)
A 10 point review of systems was completed, and was negative except as per HPI.
Physical Exam
Vital Signs
Temp 98.1 F 11/24/24 09:57
Pulse 63 11/24/24 13:45
Resp Rate 14 11/24/24 13:45
Blood pressure 120/65 11/24/24 12:00
SaO2 98 11/24/24 13:45
11/23/24 11/24/24 11/25/24
06:59 06:59 06:59
Actual Weight 63 kg
Body Mass Index (BMI) 21.1
Lab Results / Allergies
11/24/24 10:52
11/24/24 10:52
WBC 3.6 10^3/uL (4.8-10.8) L 11/24/24 10:52
Hgb 12.3 g/dL (12.0-16.0) 11/24/24 10:52
Hct 37.0 % (37.0-47.0) 11/24/24 10:52
Plt Count 167 10^3/uL (130-400) 11/24/24 10:52
Abs Immat Gran (auto) 0.0 10^3/uL (0-0.05) 11/24/24 10:52
Neutrophils % 70.0 % (42.2-75.2) 11/24/24 10:52
Allergy/AdvReac Type Severity Reaction Status Date / Time
clindamycin Allergy C. Diff Verified 11/24/24 09:57
simvastatin Allergy muscle Verified 11/24/24 09:57
cramps
Sulfa (Sulfonamide Allergy Hives Verified 11/24/24 09:57
Antibiotics) BACTRIM
sulfamethoxazole Allergy Hives Verified 11/24/24 09:57
BACTRIM
trimethoprim Allergy Hives Verified 11/24/24 09:57
BACTRIM
Physical Exam
General: Well Developed, Well Nourished and No Apparent Distress
GI: Soft, Non Distended and Tender (LLQ)
Skin: Warm and Dry
Neuro: AO x 3
Psych: Calm
Data Reviewed
-
CT Scan: Image Personally Visualized and interpreted, Report Reviewed by me and Discussed with Patient
Labs: Labs Reviewed by me, Discussed with Physician and Discussed with Patient
Assessment / Plan
-
Assessment: 69-year-old female with a history of smoldering sigmoid diverticulitis with recent worsening abdominal pain and CT done this morning presents to the ER due to abdominal pain
Plan:
- I spoke with Dr. Henry regarding her care. Plan is to continue with scheduled surgery this 11/27/2024.
- Continue antibiotics
- Pain control
- IV hydration
- Will plan on prep over the next 2 days prior to surgery
- No need for urgent surgery at this time
[2024-11-24] MEDS: NSS 500 IV (15:05)
--- NOTE | 2024-11-24 15:21 | W.PN.UPDATE ---
Update Note
Progress Note Update
I have personally supervised the history, physical exam, medical decision-making, and care plan for this patient in conjunction with the resident. I have reviewed and discussed the resident Gabbi's documentation and findings. I confirm that this
note accurately reflects my supervision and input in the care of this patient.
69 y/o F presenting to ER with abdominal pain, nausea and was referred to ER from colorectal service. She has a history of sigmoid diverticulitis from 06/30/24 with persistent episodes in July and August 2024 - she was on IV antibiotics at one point in
late August. She was arranged for sigmoidectomy on 11/27. In the past few days, she reports LLQ pain and nausea. She was travelling to [place]. Upon return to [place], she was prescribed Leva/Flagyl but continued to have pain prompting ER visit today.
CT shows like degree of nonspecific enteritis.
Colorectal evaluated patient and recommended pain control, IVF, IV Abx. They will start prep tomorrow for Surgery Monday 11/27.
Exam:
Constitutional: No Acute Distress, Comfortable and Non-toxic
Eyes: Sclera Anicteric
Cards: S1/S2, no M/G/Rs
Pulmonary: Non Labored; Negative Wheezes, Rales or Rhonchi
Gastrointestinal: Soft, Tender, Non Distended, Normal Bowel Sounds and No Guarding
Extremities: Negative Edema, Cyanosis or Erythema
Neurological: Awake and Alert
Psychological: Calm
Plan: pain control, IVF, IV Abx (Unasyn). Start prep tomorrow for Surgery Monday 11/27 with colorectal service. Rest of plan as per resident Gabbi note.
--- NOTE | 2024-11-24 15:24 | HPS.HSE ---
Addendum entered and electronically signed by Smith Elaine MD 11/24/24 15:55:
see update note for addendum
Original Note:
Family Physician
-
Family Physician: Forrest Rodríguez
Chief Complaint
-
Acute abdominal pain, diarrhea
History of Present Illness
69-year-old female with history of recurrent sigmoid diverticulitis, IBS, endometriosis, pelvic floor dysfunction, hyperlipidemia, hypothyroidism, lymphoma, who presents with 9/10 abdominal pain x 1 day. Since recent admission for acute
diverticulitis in August for which she was treated with antibiotics for a few weeks, she has had intermittent abdominal concerns. About 2 weeks ago she started to have intermittent severe crampy left lower quadrant abdominal pain with episodes
resolving spontaneously. She has occasionally used an antispasmodic medication (patient cannot recall which), and pain is sometimes relieved by bowel movements.
She was seen by Dr. Goetz today, and then her PCP today, who advised her to come in today. She is scheduled to have a bowel resection with Dr. Henry on Saturday.
She was started on Levofloxacin and Metronidazole and has been on them for 5 days.
Recent trip to [place]. She reports nausea, poor oral intake, chills, nonbloody diarrhea, urinary hesitancy. She denies fevers, vomiting or sick contacts.
Medical History
Past Medical History
Past Medical History: Reports Cancer (MALT lymphoma), Hypercholesterolemia, Hypothyroidism and Other (IBS, recurrent sigmoid diverticulitis, remote history of C. difficile colitis, endometriosis, pelvic floor disorder)
Past Surgical History: Reports Appendectomy, Cholecystectomy, Gynocological (Hysterectomy, salpingo-oophorectomy, sacrocolpopexy) and Orthopedic (Left femoral fracture repair, surgery for SBO, )
Social History
Tobacco: Non-smoker
Alcohol: Occasional
Drug: None
Personal:
Living: With Family
Family History
Family History: CAD
Allergies / Home Medications
Allergies reflects when Allergies were last updated in [facility].
Home Medications with original date entered in [facility]
Allergy/Medication List:
Allergies
Allergy/AdvReac Type Severity Reaction Status Date / Time
clindamycin Allergy C. Diff Verified 11/24/24 09:57
simvastatin Allergy muscle Verified 11/24/24 09:57
cramps
Sulfa (Sulfonamide Allergy Hives Verified 11/24/24 09:57
Antibiotics) BACTRIM
sulfamethoxazole Allergy Hives Verified 11/24/24 09:57
BACTRIM
trimethoprim Allergy Hives Verified 11/24/24 09:57
BACTRIM
Home Medications
raloxifene 60 mg tablet 60 mg PO QPM Hormonal Agent 04/01/13
rosuvastatin 40 mg tablet 40 mg PO HS High Cholesterol 06/14/21
esomeprazole magnesium 40 mg capsule,delayed release (Nexium) 40 mg PO DAILY Gastrointestinal Issue 07/07/24
zolpidem 10 mg tablet (Ambien) 5 mg PO HS 07/07/24
levofloxacin 500 mg tablet 500 mg PO DAILY #10 tabs 08/26/24
estradiol 0.01% (0.1 mg/gram) vaginal cream (Estrace) 1 appful vaginal MOTH 11/20/24
metronidazole 500 mg tablet 500 mg PO TID 11/20/24
Review of Systems
-
History Source: Patient
Constitutional: Reports Chills; Denies Fever
Respiratory: Denies Trouble Breathing
Cardiac: Denies Chest Pain
Abdomen/GI: Reports Abdominal Pain (Left lower quadrant, crampy), Nausea, Diarrhea (Brown, watery) and Anorexia; Denies Vomiting or Bloody Stools
: Reports Difficulty Voiding; Denies Dysuria or Bleeding
Neurological: Reports Headache
Physical Exam
Vital Signs
Vital Signs
Temp Pulse Resp BP Pulse Ox
98.1 F 75 15 120/65 100
11/24/24 09:57 11/24/24 14:16 11/24/24 14:16 11/24/24 12:00 11/24/24 14:00
Physical Exam
General: Well Developed, Well Nourished and Comfortable
HEENT: NormoCephalic and Anicteric
Respiratory: Clear and Non Labored Respirations; No Wheezes, Rales, Rhonchi or Crackles
Cardiac: S1/S2 and Regular Rhythm; No Murmur, Rub, Gallop, Peripheral Edema or Calf Tenderness
GI: Soft, Non Distended, Normal Bowel Sounds and Tender (left lower quadrant)
Genito-urinary: No Clear Urine
Musculoskeletal: No Clubbing, No Cyanosis and No Edema
Skin: Warm and Dry
Neuro: Awake, Alert and Oriented
Psych: Calm
Laboratory Results
-
11/24/24 10:52
11/24/24 10:52
Laboratory Results
Total Bilirubin 0.7 mg/dl (0.2-1.3) 11/24/24 10:52
AST 25 U/L (14-36) 11/24/24 10:52
ALT 23 U/L (0-35) 11/24/24 10:52
Alkaline Phosphatase 59 U/L (38-126) 11/24/24 10:52
Lipase 33 U/L (23-300) 11/24/24 10:52
Impression/Plan
-
IMPRESSION:
69-year-old female with history of recurrent sigmoid diverticulitis, IBS, endometriosis, pelvic floor dysfunction, hyperlipidemia, hypothyroidism, lymphoma, who presents with acute severe left lower quadrant crampy abdominal pain.
PLAN:
Acute abdominal pain:
Chills
CT abd/pel IV contrast (no oral contrast) 11/24: No obstruction or free air. Cannot exclude mild enteritis.
Stool culture/C. difficile negative
- Admit to MedSurg
- Low residue diet today, clear liquids starting tomorrow
- Scheduled for colorectal surgery with Dr. Henry on Saturday
- IV fluids
-Pain control: Bentyl/Dilaudid/Tylenol
- Hold metronidazole and levofloxacin. Start Unasyn
Hyponatremia:
- Secondary to poor oral intake
- Expect improvement with IV fluid
Urinary hesitancy:
- Check urinalysis
- Bladder scan protocol
Hyperlipidemia:
- Continue statin
Hypothyroidism:
- Continue levothyroxine
Recurrent sigmoid diverticulitis
History of MALT lymphoma
Remote C. difficile history: C. difficile negative
Endometriosis
Pelvic floor disorder
IBS
DVT prophylaxis: Lovenox
CODE STATUS: Full code
[2024-11-24] MEDS: UNASYN IV ×2 (16:55→22:16)
[2024-11-24] MEDS: NSS 1000 IV (16:55)
[2024-11-24] MEDS: PROTONIX 40 MG PO (16:56)
[2024-11-24] MEDS: TYLENOL 650 MG PO ×2 (17:10→20:59)
[2024-11-24] MEDS: LOVENOX 40 MG SC (18:18)
[2024-11-24] MEDS: EVISTA 60 MG PO (18:18)
[2024-11-24 20:23] LABS: Urine Character Clear (Clear)
[2024-11-24 20:44] LABS: Urine Red Blood Cell 0-2 /HPF (0-2); Urine Squamous Cell >30 /LPF (Few)
[2024-11-24] MEDS: CRESTOR 40 MG PO (21:00)
[2024-11-24] MEDS: AMBIEN 5 MG PO (21:00)
--- NOTE | 2024-11-25 02:52 | DOWNTIME ---
There was a [employer] Downtime on 11/25/2024 from 0100 to 11/25/2024 at 0215. Downtime documentation of patient's care, including medication administrations, has been reconciled in the electronic record per guidelines. Refer to the
patient's paper chart under the miscellaneous tab to see printed paper medication records and downtime forms.
[2024-11-25] MEDS: UNASYN IV ×4 (03:51→21:51)
[2024-11-25] MEDS: NSS 1000 IV ×2 (03:53→17:31)
[2024-11-25 07:03] LABS: Hematocrit 37.5 % (37.0-47.0); Hemoglobin 12.4 g/dL (12.0-16.0); Mean Corp Hgb Conc. 33.1 g/dL (33.0-37.0); Mean Corpuscular Volume 89.9 fL (81.0-99.0); Platelet Count 162 10^3/uL (130-400); Red Cell Dist. Width 13.8 % (11.5-14.5)
[2024-11-25 07:33] LABS: Blood Urea Nitrogen 7 mg/dl (7-17); Calcium 8.8 mg/dl (8.4-10.2); Carbon Dioxide 26 mmol/L (22-30); Chloride 108 mmol/L (98-107); Estimated Creatinine Clearance 84 ml/min; Glucose 93 mg/dl (70-99); Potassium 4.0 mmol/L (3.5-5.1); Sodium 138 mmol/L (135-145); eGFR > 60.00
[2024-11-25 07:37] VITALS: BP 128/65
[2024-11-25] MEDS: PROTONIX 40 MG PO (07:58)
[2024-11-25] MEDS: ZOFRAN 4 MG IV ×2 (08:04→19:39)
[2024-11-25] MEDS: TYLENOL 650 MG PO (08:04)
--- NOTE | 2024-11-25 08:29 | W.PN.UPDATE ---
Update Note
Progress Note Update
I saw and evaluated the patient. I reviewed the resident�s note and agree with findings and plan as documented in the resident�s note.
Reports mild abdominal discomfort.
Gen: NAD, AAOx3.
Eyes: EOMI, PERRLA, no scleral icterus.
Neck: supple.
CV: RRR, +S1/S2, no m/r/g.
Resp: CTAB, no rales, wheezes, or rhonchi.
Abd: +BS, soft, LLQ TTP, ND
Skin: No rashes.
Neuro: CN 2-12 intact, non-focal.
Psych: Normal mood and affect.
CT A/P: No intestinal obstruction or free air. Limited evaluation of intestinal tract without oral contrast with some fluid in nondistended loops of small bowel and some fluid in the nondistended large bowel. Cannot exclude mild enteritis. Prior
cholecystectomy, appendectomy and total hysterectomy.
Abdominal pain:
-h/o recurrent sigmoid diverticulitis
-CT A/P above and with nonspecific enteritis
-cont Unasyn
-for sigmoidectomy on 11/27/24
-c/s CRS
Other problems:
Chronic leukopenia
Hyponatremia, resolved
Hyperlipidemia: cont statin
Hypothyroidism: cont levothyroxine
Recurrent sigmoid diverticulitis
History of MALT lymphoma
Remote C. difficile history
Endometriosis
Pelvic floor disorder
IBS
FULL/Lovenox
--- NOTE | 2024-11-25 09:57 | W.PN.HOSP.TC ---
Today's Communication/Plan
-
Unasyn Day# 2
Pain management
Scheduled for robotic sigmoidectomy with Dr Henry on 11/27/2024
Continue to monitor
Assessment / Plan
Assessment / Plan
69-year-old female with past medical history of recurrent sigmoid diverticulitis, IBS, cystocele and rectocele with complete uterovaginal prolapse s/p NANCY, Non gastric MALT lymphoma, hypercholesterolemia, hypothyroidism presenting with lower
quadrant abdominal pain. She has a scheduled procedure with Dr. Henry for robotic sigmoidectomy with on 11/27/2024
#Acute Abdominal Pain
#Recurrent diverticulitis
-Scheduled for robotic sigmoidectomy with Dr. Henry on 11/27/[address] abd/pelis w/ IV contrast w/o oral contrast: 11/24/2024: No intestinal obstruction or free air.� Cannot exclude mild enteritis.
(-) Stool culture (shiga toxin pending)/(-) C. Diff
-Unasyn day 2
-Clear liquids
-IV NSS
-Pain management: PRN dilaudid, PRN acetaminophen, PRN zofran
-PPI
Appreciate CRS
#Hyponatremia:
-stable
-on IV NSS
#Urinary hesitancy:
-improved with rehydration therapy
- Urinalysis unremarkable
- Bladder scan protocol
#Hyperlipidemia:
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
DVT prophylaxis: Lovenox
Full code
Anticipated Discharge: > 48 hours
Subjective/Interval History
-
Date of Service: November 25, 2024
The patient still has a left lower quadrant abdominal pain described as crampy, churning pain with 3/10 PS associated with loss of appetite. Improved from yesterday when pain was 10/10 PS. She has some nausea but no vomiting. She reports that
urinary hesitancy is improved with rehydration. 3 episodes of nonbloody diarrhea, which she noted to be chronic.
Objective Data
-
Labs:
Laboratory Results
11/25/24
06:25
WBC 2.7 L
Hgb 12.4
Hct 37.5
Plt Count 162
Sodium 138
Potassium 4.0
Chloride 108 H
Carbon Dioxide 26
BUN 7
Creatinine 0.6
Glucose 93
Calcium 8.8
Vital Signs:
Vital Signs
Temp Pulse Resp BP Pulse Ox
98.7 F 65 16 128/65 100
11/25/24 07:37 11/25/24 07:37 11/25/24 07:37 11/25/24 07:37 11/25/24 07:37
I&O
11/24/24 11/25/24 11/26/24
06:59 06:59 06:59
Intake Total 240 / 240
Balance 240 / 240
Review of Systems
-
History Source: Patient
Constitutional: Reports Weight Loss, No Appetite and Fatigue; Denies Fever
EENT: Reports No Symptoms Reported
Respiratory: Denies Cough or Trouble Breathing
Cardiac: Denies Chest Pain, Palpitations or Syncope
Abdomen/GI: Reports Abdominal Pain (Left lower quadrant), Nausea and Diarrhea (Chronic); Denies Vomiting or Bloody Stools
Genitourinary: Reports Hesitancy (Improved)
Musculoskeletal: Reports No Symptoms
Neuro: Denies Numbness, Tremors or Lightheadedness
Physical Exam
-
General: No Apparent Distress and Conversant
HEENT: Normocephalic
Respiratory: Clear to Auscultation
Cardiac: Regular Rhythm and S1/S2
GI: Soft, Nondistended, Tender (Left lower quadrant) and Other (Hyperactive bowel sounds)
Musculoskeletal: No Clubbing, No Cyanosis and No Edema
Skin: Warm
Neuro: AO x 3
Psych: Calm
[2024-11-25 11:14] VITALS: BP 166/79
--- NOTE | 2024-11-25 12:49 | W.PN.CRS1 ---
Today's Communication / Plan
-
Mag citrate
Clears
Surgery Saturday
Assessment/Plan
-
Assessment: 69-year-old female with a history of smoldering sigmoid diverticulitis with recent worsening abdominal pain and CT done this morning presents to the ER due to abdominal pain
Plan:
- Plan is to continue with scheduled surgery this 11/27/2024.
- Continue antibiotics
- Pain control
- IV hydration
- Will plan on prep over the next 2 days prior to surgery-clear liquids today with mag citrate x 1
-Anticipate GoLytely tomorrow
Subjective Data
Subjective Data
Date of Service: November 25, 2024
Patient states her pain is 'there' but not like it was when she was first admitted. Denies nausea or vomiting. She is having some liquid bowel movements. She complains of a headache. Her pain is mostly located in the left lower quadrant of her
abdomen.
Objective Data
-
Vital Signs
Temp Pulse Resp BP Pulse Ox
98.0 F 70 16 166/79 100
11/25/24 11:14 11/25/24 11:14 11/25/24 11:14 11/25/24 11:14 11/25/24 11:14
Intake & Output
11/24/24 11/25/24 11/26/24
06:59 06:59 06:59
Intake Total 240 / 240
Balance 240 / 240
Intake:
Oral fluids 240 / 240
Other:
How many times incontinent 2
MODERATE amount urine
Lab Results
11/25/24 06:25
11/25/24 06:25
Physical Exam
-
General: No Acute Distress and AOx3
Abdomen: Soft, Non Distended and Tender (Mild left lower quadrant)
Skin: Warm and Dry
--- NOTE | 2024-11-25 13:13 | CM ---
Met with patient bedside. Lives with her in 2-story carriage house in a [place] and [place] community, [facility] with 1 step to the entrance.BR on 1st floor.Is independent with ADLs.Remote hx of VN after leg fracture. No hx of SNF.DME: [facility], not
in use. No insecurities identified. Confirmed PCP, rx, insurance and drug coverage.
For Bowel resection on Saturday
PCP: Ulisses Rodríguez
Rx: [facility]
Plan: TBD post surgery
[2024-11-25] MEDS: CITROMA 300 ML PO (15:06)
[2024-11-25 15:15] VITALS: BP 144/68
[2024-11-25] MEDS: LOVENOX 40 MG SC (17:31)
[2024-11-25] MEDS: EVISTA 60 MG PO (17:34)
[2024-11-25] MEDS: DILAUDID 0.25 MG IV (19:58)
[2024-11-25] MEDS: AMBIEN 5 MG PO (21:52)
[2024-11-25] MEDS: CRESTOR 40 MG PO (21:58)
[2024-11-25 23:13] VITALS: BP 122/62
[2024-11-26] MEDS: UNASYN IV ×4 (05:19→21:21)
[2024-11-26 07:10] VITALS: BP 126/66
--- NOTE | 2024-11-26 07:40 | W.PN.UPDATE ---
Update Note
Progress Note Update
I saw and evaluated the patient. I reviewed the resident�s note and agree with findings and plan as documented in the resident�s note.
Currently without abd pain
Gen: NAD, AAOx3.
Eyes: EOMI, PERRLA, no scleral icterus.
Neck: supple.
CV: remains RRR, +S1/S2, no m/r/g.
Resp: CTAB anteriorly, no rales, wheezes, or rhonchi.
Abd: +BS, soft, mild LLQ TTP, ND
Skin: No rashes.
Neuro: CN 2-12 intact, non-focal.
Psych: Normal mood and affect.
CT A/P: No intestinal obstruction or free air. Limited evaluation of intestinal tract without oral contrast with some fluid in nondistended loops of small bowel and some fluid in the nondistended large bowel. Cannot exclude mild enteritis. Prior
cholecystectomy, appendectomy and total hysterectomy.
Abdominal pain:
-h/o recurrent sigmoid diverticulitis
-CT A/P above and with nonspecific enteritis
-cont Unasyn
-for sigmoidectomy on 11/27/24
-CRS following
Other problems:
Chronic leukopenia
Hyponatremia, resolved
Hyperlipidemia: cont statin
Hypothyroidism: cont levothyroxine
Recurrent sigmoid diverticulitis
History of MALT lymphoma
Remote C. difficile history
Endometriosis
Pelvic floor disorder
IBS
FULL/Lovenox
[2024-11-26] MEDS: NSS 1000 IV ×2 (07:47→21:20)
[2024-11-26] MEDS: PROTONIX 40 MG PO (07:49)
--- NOTE | 2024-11-26 08:27 | W.PN.HOSP.TC ---
Today's Communication/Plan
-
For surgery tomorrow
NPO after midnight
Unasyn Day 3
continue Pain management
continue to monitor
Assessment / Plan
Assessment / Plan
69-year-old female with past medical history of recurrent sigmoid diverticulitis, IBS, cystocele and rectocele with complete uterovaginal prolapse s/p NANCY, Non gastric MALT lymphoma, hypercholesterolemia, hypothyroidism presenting with lower
quadrant abdominal pain. She has a scheduled procedure with Dr. Henry for robotic sigmoidectomy with on 11/27/2024
#Acute Abdominal Pain
#Recurrent diverticulitis
-Scheduled for robotic sigmoidectomy with Dr. Henry tomorrow
CT abd/pelis w/ IV contrast w/o oral contrast: 11/24/2024: No intestinal obstruction or free air.� Cannot exclude mild enteritis.
(-) Stool culture (shiga toxin pending)/(-) C. Diff
-Unasyn day 3
-Clear liquids, NPO after midnight
-IV NSS
-Pain management: PRN dilaudid, PRN acetaminophen, PRN zofran
-PPI
Appreciate CRS
#Hyponatremia:
-stable
-on IV NSS
#Urinary hesitancy:
-stable
-improved with rehydration therapy
- Urinalysis unremarkable
- Bladder scan protocol
#Hyperlipidemia:
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
DVT prophylaxis: Lovenox
Full code
Anticipated Discharge: > 48 hours
Subjective/Interval History
-
Date of Service: November 26, 2024
The patient reported that her abdominal pain was more intense yesterday evening accompanied by nausea, but was relieved by Dilaudid. Currently, abdominal pain is 3/10 PS. No nausea and vomiting reported. Urinary hesitancy improved.
Objective Data
-
Labs:
Laboratory Results
11/26/24
08:19
WBC Pending
Hgb Pending
Hct Pending
Plt Count Pending
Sodium Pending
Potassium Pending
Chloride Pending
Carbon Dioxide Pending
BUN Pending
Creatinine Pending
Glucose Pending
Calcium Pending
Vital Signs:
Vital Signs
Temp Pulse Resp BP Pulse Ox
98.7 F 67 20 126/66 99
11/26/24 07:10 11/26/24 07:10 11/26/24 07:10 11/26/24 07:10 11/26/24 07:10
I&O
11/25/24 11/26/24 11/27/24
06:59 06:59 06:59
Intake Total 240 / 240 2220 / 2220
Balance 240 / 240 2220 / 2220
Review of Systems
-
History Source: Patient
Constitutional: Reports No Appetite; Denies Fever
EENT: Reports No Symptoms Reported
Respiratory: Denies Cough or Trouble Breathing
Cardiac: Denies Chest Pain, Palpitations or Syncope
Abdomen/GI: Reports Abdominal Pain (Left lower quadrant /10); Denies Nausea, Vomiting or Bloody Stools
Musculoskeletal: Reports No Symptoms
Neuro: Denies Numbness, Tremors or Lightheadedness
Physical Exam
-
General: No Apparent Distress and Conversant
HEENT: Normocephalic
Respiratory: Clear to Auscultation
Cardiac: Regular Rhythm and S1/S2
GI: Soft, Nondistended, Tender (Left lower quadrant) and Other (Hyperactive bowel sounds)
Musculoskeletal: No Clubbing, No Cyanosis and No Edema
Skin: Warm
Neuro: AO x 3
Psych: Calm
--- NOTE | 2024-11-26 08:51 | W.PN.CRS1 ---
Today's Communication / Plan
-
OR tomorrow
GoLytely
Clears then n.p.o. at midnight
Assessment/Plan
-
Assessment: 69-year-old female with a history of smoldering sigmoid diverticulitis with recent worsening abdominal pain and CT done this morning presents to the ER due to abdominal pain
Plan:
- Plan is to continue with scheduled surgery this 11/27/2024.
- Continue antibiotics
- Pain control
- IV hydration
-Start GoLytely prep today
- Preop orders in place
- Clear liquids today then n.p.o. at midnight
- Labs are pending
Subjective Data
Subjective Data
Date of Service: November 26, 2024
Patient states she is ready to prep. She is nervous. Her pain is controlled.
Objective Data
-
Vital Signs
Temp Pulse Resp BP Pulse Ox
98.7 F 67 20 126/66 99
11/26/24 07:10 11/26/24 07:10 11/26/24 07:10 11/26/24 07:10 11/26/24 07:10
Intake & Output
11/25/24 11/26/24 11/27/24
06:59 06:59 06:59
Intake Total 240 / 240 2220 / 2220
Balance 240 / 240 2220 / 2220
Intake:
Oral fluids 240 / 240 1260 / 1260
IV fluids (Total) 960 / 960
Other:
How many times incontinent 2 4
MODERATE amount urine
Number of approximated MODERATE 3
amounts of urine
Number of unmeasured liquid
stools
Rectum 3
Physical Exam
-
General: No Acute Distress and AOx3
Abdomen: Soft, Non Distended and Tender (Mild left lower quadrant)
Skin: Warm and Dry
[2024-11-26 08:55] LABS: Hematocrit 38.3 % (37.0-47.0); Hemoglobin 12.8 g/dL (12.0-16.0); Mean Corp Hgb Conc. 33.4 g/dL (33.0-37.0); Mean Corpuscular Volume 90.1 fL (81.0-99.0); Platelet Count 158 10^3/uL (130-400); Red Cell Dist. Width 13.6 % (11.5-14.5)
[2024-11-26 09:27] LABS: Blood Urea Nitrogen 5 mg/dl (7-17); Calcium 8.7 mg/dl (8.4-10.2); Carbon Dioxide 26 mmol/L (22-30); Chloride 109 mmol/L (98-107); Estimated Creatinine Clearance 84 ml/min; Glucose 92 mg/dl (70-99); Sodium 139 mmol/L (135-145); eGFR > 60.00
[2024-11-26] MEDS: NULYTELY SOLUTION 4 LITERS PO (09:37)
[2024-11-26 09:42] LABS: Potassium 4.0 mmol/L (3.5-5.1)
--- NOTE | 2024-11-26 14:16 | CM ---
CM following re: discharge planning.
Reviewed pt's chart, met with pt.
Per Colorectal surgery, OR tomorrow, continue supportive care.
PT and OT will evaluate the pt after surgery to determine a level of care at discharge.
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
D/C plan: home with no needs anticipated.
CM will follow with discharge plan updates as hospitalization progresses
[2024-11-26] MEDS: NEOMYCIN 1000 MG PO ×3 (14:29→23:51)
[2024-11-26] MEDS: FLAGYL 1000 MG PO ×3 (14:29→23:53)
[2024-11-26 15:00] VITALS: BP 153/79
[2024-11-26] MEDS: EVISTA 60 MG PO (17:50)
[2024-11-26] MEDS: CRESTOR 40 MG PO (21:23)
[2024-11-26] MEDS: DILAUDID 0.5 MG IV (21:24)
[2024-11-26] MEDS: ZOFRAN 4 MG IV (22:46)
[2024-11-26 23:15] VITALS: BP 125/65
[2024-11-26] MEDS: AMBIEN 5 MG PO (23:56)
[2024-11-27] VITALS (10 sets, daily range): BP systolic 94–138; BP diastolic 46–71; BMI 20.8
[2024-11-27] MEDS: UNASYN IV ×3 (04:31→15:52)
[2024-11-27 07:39] LABS: Hematocrit 35.1 % (37.0-47.0); Hemoglobin 11.8 g/dL (12.0-16.0); Mean Corp Hgb Conc. 33.6 g/dL (33.0-37.0); Mean Corpuscular Volume 88.4 fL (81.0-99.0); Platelet Count 154 10^3/uL (130-400); Red Cell Dist. Width 13.4 % (11.5-14.5)
[2024-11-27 08:10] LABS: Blood Urea Nitrogen < 2 mg/dl (7-17); Calcium 8.4 mg/dl (8.4-10.2); Carbon Dioxide 25 mmol/L (22-30); Chloride 111 mmol/L (98-107); Estimated Creatinine Clearance 84 ml/min; Glucose 90 mg/dl (70-99); Potassium 4.0 mmol/L (3.5-5.1); Sodium 140 mmol/L (135-145); eGFR > 60.00
[2024-11-27] MEDS: PROTONIX 40 MG PO (09:06)
[2024-11-27] MEDS: NSS 1000 IV (11:21)
[2024-11-27] MEDS: NEURONTIN 600 MG PO (11:27)
[2024-11-27] MEDS: TYLENOL 1000 MG PO (11:27)
[2024-11-27] MEDS: HEPARIN 5000 UNITS SC (11:28)
--- NOTE | 2024-11-27 14:38 | CM ---
CM following re: discharge planning.
Reviewed pt's chart, met with pt.
Per Colorectal surgery, OR today, continue supportive care.
PT and OT will evaluate the pt after surgery to determine a level of care at discharge.
Pt lives with in 2-story carriage house in a [place] and older community, 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
D/C plan: home with no needs anticipated.
CM will follow with discharge plan updates as hospitalization progresses
--- NOTE | 2024-11-27 18:35 | W.IMMPOSTOP ---
Documented by User: NOBLE Fajardo 11/27/24 18:38
Surgical Immed Post Op Note
-
Primary Surgeon: Nas Henry M.D.
Assisting Surgeon: DARCIE Barnes, and Abilio CEDENO
Pre-op Diagnosis: Recurrence of diverticulitis
Post-op Diagnosis: Recurrence of diverticulitis
Procedure Performed: Lysis of adhesions
Robotic sigmoid colectomy
Anesthesia Type: General
Specimen / Cultures: Sigmoid [place] (Marked proximally)
Estimated Blood Loss: 30 cc
Complications: None
Operative Findings: Extensive adhesions

Documented by User: John Henry MD 11/27/24 18:44
Surgical Immed Post Op Note
-
Primary Surgeon: Nas Henry M.D.
Assisting Surgeon: DARCIE Barnes, and Abilio CEDENO
Pre-op Diagnosis: Recurrent sigmoid diverticulitis
Post-op Diagnosis: Same
Procedure Performed: Robotic extensive lysis of adhesions (>2.5 hours)
Robotic sigmoid colectomy with intracorporeal anastomosis
Anesthesia Type: General
Specimen / Cultures: Sigmoid Colon (suture is proximal)
Estimated Blood Loss: 30 cc
Complications: None
Operative Findings: Extensive adhesions
28mm EEA
Normal leak test
Patient's updated via telephone.
[2024-11-27] MEDS: DILAUDID 0.5 MG IV ×2 (19:43→21:46)
--- NOTE | 2024-11-27 20:15 | PTCARENOTE ---
Addendum entered by Kwan López RN 11/28/24 07:57:
Pt throughout night has become easier to arouse, conversational and alert, pt reported pain around 2135, VSS-See MAY. Pt received scheduled Toradol-See MAY. Pt continued to rest comfortably throughout night, blood pressure has steadily decreased;
IVF at 100mL/hr; Pt reports no feelings of lightheadedness, dizziness or discomfort. Pt reported pain around 0500-See MAY. VSS. Patient resting in bed, call ro within reach, bed in lowest position and locked. Pt states no further needs at this
time.
Original Note:
Pt arrived to unit from PACU at 1999. Per INFORMATICS SCIENTIST pt was drowsy and difficult to arouse s/p sx, pt remains difficult to arouse and drowsy at this time. Pt responsive to repeated verbal & tactile stimuli. VSS. IVF started, pt reports no pain at this
time. 5x Lap Sites along with 1 puncture site-See Wound Management Intervention. Lomeli draining clear & yellow urine. Bed in lowest position and locked, call ro within reach. Pt states no further needs at this time.
[2024-11-27] MEDS: TORADOL IV (21:15)
[2024-11-27] MEDS: EVISTA PO (21:16)
[2024-11-27] MEDS: CRESTOR PO (21:17)
[2024-11-27] MEDS: AMBIEN PO (21:17)
[2024-11-27] MEDS: NORMOSOL-R/PLASMALYTE-A 1000 IV (21:39)
[2024-11-28] MEDS: UNASYN IV ×5 (00:25→21:51)
[2024-11-28] MEDS: TORADOL 15 MG IV ×3 (01:05→16:29)
[2024-11-28 03:15] VITALS: BP 96/59
[2024-11-28] MEDS: DILAUDID 0.25 MG IV ×2 (05:23→21:50)
[2024-11-28 06:35] LABS: Hematocrit 32.6 % (37.0-47.0); Hemoglobin 11.2 g/dL (12.0-16.0); Mean Corp Hgb Conc. 34.4 g/dL (33.0-37.0); Mean Corpuscular Volume 87.6 fL (81.0-99.0); Platelet Count 156 10^3/uL (130-400); Red Cell Dist. Width 13.1 % (11.5-14.5)
[2024-11-28 07:02] LABS: Blood Urea Nitrogen 5 mg/dl (7-17); Calcium 7.6 mg/dl (8.4-10.2); Carbon Dioxide 25 mmol/L (22-30); Chloride 107 mmol/L (98-107); Estimated Creatinine Clearance 84 ml/min; Glucose 142 mg/dl (70-99); Potassium 3.9 mmol/L (3.5-5.1); Sodium 135 mmol/L (135-145); eGFR > 60.00
[2024-11-28 07:20] VITALS: BP 118/57
[2024-11-28] MEDS: DILAUDID 0.5 MG IV ×3 (09:06→18:12)
[2024-11-28] MEDS: FLUSH (NSS) 2 FLUSH IV ×4 (09:07→18:13)
[2024-11-28] MEDS: PROTONIX 40 MG PO (09:07)
[2024-11-28] MEDS: NORMOSOL-R/PLASMALYTE-A 1000 IV ×2 (09:11→17:16)
[2024-11-28 11:15] VITALS: BP 130/64
--- NOTE | 2024-11-28 11:43 | W.PN.CRS1 ---
Today's Communication / Plan
-
clears
Lovenox
OOB
Assessment/Plan
-
POD#1 Lysis of adhesions, Robotic sigmoid colectomy
vitals: normal
WBC: 5.0, hemoglobin 11.2
-Advance diet to clears
-OOB as tolerated
-D/C ivfs when tolerating po intake
-Start lovenox for dvt prophylaxis. Teds/scds in place.
-Continue unasyn IV
-OR pathology pending
-Maintain hernandez until AM
-Pain control: tylenol/toradol standing, dialudid PRN
Subjective Data
Procedure
11/27/2024- Lysis of adhesions, Robotic sigmoid colectomy
Subjective Data
Date of Service: November 28, 2024
Patient states she feels well. She is having no gas yet. She has some pain. Denies nausea or vomiting. She is very thirsty.
Objective Data
-
Vital Signs
Temp Pulse Resp BP Pulse Ox
98.5 F 84 16 118/57 98
11/28/24 07:20 11/28/24 07:20 11/28/24 07:20 11/28/24 07:20 11/28/24 07:20
Intake & Output
11/27/24 11/28/24 11/29/24
06:59 06:59 06:59
Intake Total 2200 / 2200 1407 / 1407
Output Total 1375 / 1375
Balance 2199 / 2200 32 / 32
Intake:
Oral fluids 1959 / 1959 0 / 0
IV fluids (Total) 1047 / 1047
IV piggybacks 240 / 240 360 / 360
Output:
Urine, Hernandez 1375 / 1375
Other:
Number of approximated SMALL 2
amounts of urine
Number of approximated MODERATE 2 5
amounts of urine
Number of unmeasured liquid
stools
Rectum 12
Lab Results
11/28/24 05:30
11/28/24 05:30
Physical Exam
-
General: No Acute Distress and AOx3
Abdomen: Soft, Non Distended and Tender (mild around incisions)
Skin: Warm and Dry
Incision: Clear, Dry, Intact
[2024-11-28 15:15] VITALS: BP 133/64
[2024-11-28] MEDS: EVISTA 60 MG PO (17:24)
[2024-11-28 19:51] VITALS: BP 135/68
[2024-11-28] MEDS: TORADOL IV (20:02)
[2024-11-28] MEDS: ZOFRAN 4 MG IV (21:50)
[2024-11-28] MEDS: CRESTOR 40 MG PO (21:50)
[2024-11-28] MEDS: AMBIEN 5 MG PO (21:50)
[2024-11-28 23:16] VITALS: BP 144/66
[2024-11-29] MEDS: TORADOL IV ×2 (02:41→20:34)
[2024-11-29] MEDS: NORMOSOL-R/PLASMALYTE-A IV ×2 (02:59→11:36)
[2024-11-29 03:20] VITALS: BP 131/65
[2024-11-29] MEDS: UNASYN IV ×4 (03:30→22:25)
[2024-11-29] MEDS: NORMOSOL-R/PLASMALYTE-A 1000 IV (03:38)
[2024-11-29] MEDS: TORADOL 15 MG IV ×3 (03:39→16:40)
[2024-11-29 08:21] VITALS: BP 135/69
[2024-11-29] MEDS: FLUSH (NSS) 2 FLUSH IV ×3 (08:33→16:41)
[2024-11-29] MEDS: PROTONIX 40 MG PO (08:34)
--- NOTE | 2024-11-29 08:49 | W.PN.CRS1 ---
Today's Communication / Plan
-
fulls
Assessment/Plan
-
POD#2 Lysis of adhesions, Robotic sigmoid colectomy
vitals: normal
no labs today
-Advance diet to fulls
-OOB as tolerated. PT/OT ordered.
-D/C ivfs when tolerating po intake
-Lovenox for dvt prophylaxis. Teds/scds in place.
-Continue unasyn IV
-OR pathology pending
-Lomeli out, await void
-Pain control: tylenol/toradol standing, Dilaudid PRN
Subjective Data
Procedure
11/27/2024- Lysis of adhesions, Robotic sigmoid colectomy
Subjective Data
Date of Service: November 29, 2024
Patient is having some loose stools and urgency. She has flatus. Denies nausea or vomiting. Pain is controlled.
Objective Data
-
Vital Signs
Temp Pulse Resp BP Pulse Ox
98.6 F 73 18 135/69 97
11/29/24 08:21 11/29/24 08:21 11/29/24 08:21 11/29/24 08:21 11/29/24 08:21
Intake & Output
11/28/24 11/29/24 11/30/24
06:59 06:59 06:59
Intake Total 1407 / 1407 2387 / 2387
Output Total 1375 / 1375 3100 / 3100
Balance 32 / 32 -713 / -713
Intake:
Oral fluids 0 / 0 100 / 100
IV fluids (Total) 1047 / 1047 1887 / 1887
IV piggybacks 360 / 360 400 / 400
Output:
Urine, Lomeli 1375 / 1375 3100 / 3100
Other:
Number of approximated MODERATE 5
amounts of urine
Number of unmeasured liquid
stools
Rectum 1
Lab Results
11/28/24 05:30
11/28/24 05:30
Physical Exam
-
General: No Acute Distress and AOx3
Abdomen: Soft, Non Distended and Non Tender
Skin: Warm and Dry
Incision: Clear, Dry, Intact
[2024-11-29] MEDS: DILAUDID 0.25 MG IV (11:18)
[2024-11-29 15:32] VITALS: BP 135/75
[2024-11-29] MEDS: DILAUDID 0.5 MG IV ×2 (16:04→22:24)
[2024-11-29 16:15] VITALS: BP 135/75; PULSE 79; O2SAT 98
[2024-11-29] MEDS: LOVENOX 40 MG SC (16:42)
[2024-11-29] MEDS: EVISTA 60 MG PO (16:42)
[2024-11-29] MEDS: CRESTOR 40 MG PO (22:24)
[2024-11-29] MEDS: AMBIEN 5 MG PO (22:24)
[2024-11-29 22:36] VITALS: BP 158/82
[2024-11-30] MEDS: TORADOL IV ×2 (02:53→15:41)
[2024-11-30] MEDS: NORMOSOL-R/PLASMALYTE-A IV ×2 (02:54→08:56)
[2024-11-30] MEDS: UNASYN IV ×2 (04:36→09:03)
[2024-11-30 06:50] LABS: Hematocrit 32.1 % (37.0-47.0); Hemoglobin 11.0 g/dL (12.0-16.0); Mean Corp Hgb Conc. 34.3 g/dL (33.0-37.0); Mean Corpuscular Volume 88.4 fL (81.0-99.0); Nucleated Red Blood Cells % 0 %; Platelet Count 138 10^3/uL (130-400); Red Cell Dist. Width 13.2 % (11.5-14.5)
[2024-11-30 06:57] LABS: Blood Urea Nitrogen 7 mg/dl (7-17); Calcium 8.4 mg/dl (8.4-10.2); Carbon Dioxide 27 mmol/L (22-30); Chloride 108 mmol/L (98-107); Estimated Creatinine Clearance 84 ml/min; Glucose 95 mg/dl (70-99); Potassium 3.4 mmol/L (3.5-5.1); Sodium 138 mmol/L (135-145); eGFR > 60.00
[2024-11-30 07:10] VITALS: BP 126/59
[2024-11-30] MEDS: PROTONIX 40 MG PO (08:55)
[2024-11-30] MEDS: TORADOL 15 MG IV ×2 (08:55→21:51)
--- NOTE | 2024-11-30 10:10 | W.PN.CRS1 ---
Today's Communication / Plan
-
low residue
dc abx
Assessment/Plan
-
POD#3 Lysis of adhesions, Robotic sigmoid colectomy
vitals: normal
labs normal
-Advance diet to low residue
-OOB as tolerated. PT/OT ordered.
-D/C antibiotics
-Lovenox for dvt prophylaxis. Teds/scds in place.
-OR pathology pending
-Pain control: tylenol/toradol standing, Dilaudid PRN
-Possibly later today versus tomorrow - no needs
Subjective Data
Procedure
11/27/2024- Lysis of adhesions, Robotic sigmoid colectomy
Subjective Data
Date of Service: November 30, 2024
Patient states she is a little nauseous this morning. Her pain is controlled. She has flatus. She has been walking around and urinating without difficulty.
Objective Data
-
Vital Signs
Temp Pulse Resp BP Pulse Ox
99.1 F 85 18 126/59 98
11/30/24 07:10 11/30/24 07:10 11/30/24 07:10 11/30/24 07:10 11/30/24 07:10
Intake & Output
11/29/24 11/30/24 12/01/24
06:59 06:59 06:59
Intake Total 2387 / 2387 1909
Output Total 3100 / 3100 2900 / 2900
Balance -713 / -713 -990 / -990
Intake:
Oral fluids 100 / 100 750 / 750
IV fluids (Total) 1887 / 1887 600 / 600
IV piggybacks 400 / 400 560 / 560
Output:
Urine, Lomeli 3100 / 3100
Urine, Voided 2900 / 2900
Other:
Number of approximated MODERATE 1
amounts of urine
Number of approximated LARGE 2
amounts of urine
Number of unmeasured liquid
stools
Rectum 1 2
Lab Results
11/30/24 06:10
11/30/24 06:10
Physical Exam
-
General: No Acute Distress and AOx3
Abdomen: Soft, Non Distended and Non Tender
Skin: Warm and Dry
[2024-11-30 10:17] VITALS: BP 130/68; PULSE 74; O2SAT 98
[2024-11-30] MEDS: DILAUDID 0.25 MG IV (12:51)
--- NOTE | 2024-11-30 14:50 | CM ---
CM following re: discharge planning.
Reviewed pt's chart, met with pt.
Pt is POD#3 Lysis of adhesions, Robotic sigmoid colectomy, continue supportive care.
PT and OT evaluations noted - home PT vs no needs recommended. Pt is aware and agrees with home PT.OT, VN choices given, [facility] preferred. A referral to VN made.
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
IMM reviewed, placed on chart, pt has a copy.
D/C plan: home with [facility] and family support. to transport at discharge.
CM will follow with discharge plan updates as hospitalization progresses
[2024-11-30 15:10] VITALS: BP 157/86
--- NOTE | 2024-11-30 15:43 | VNURNOTE ---
Home Health Liaison met with patient and family member at bedside to discuss [facility] nurse/therapy, visits, schedule and homebound status. Patient is agreeable and understands that visits at home will be 2-3 x per week to assess and teach medical
management.
Patient is aware that [facility] will contact them for start of care in 1-2 days after discharge from . Provided contact number for [facility].
[facility] referral completed in [facility].
[2024-11-30] MEDS: LOVENOX 40 MG SC (17:50)
[2024-11-30] MEDS: EVISTA 60 MG PO (17:50)
[2024-11-30] MEDS: KCL 160 MEQ IV (17:50)
[2024-11-30] MEDS: AMBIEN 5 MG PO (21:51)
[2024-11-30] MEDS: CRESTOR 40 MG PO (21:51)
[2024-11-30 23:21] VITALS: BP 130/58
[2024-12-01] MEDS: TORADOL 15 MG IV ×4 (02:15→21:11)
[2024-12-01 07:15] VITALS: BP 128/64
[2024-12-01 07:42] LABS: Magnesium 1.6 mg/dl (1.6-2.3)
[2024-12-01] MEDS: PROTONIX 40 MG PO (08:34)
--- NOTE | 2024-12-01 08:41 | W.PN.CRS1 ---
Today's Communication / Plan
-
low residue
Follow potassium
Possible discharge later
Assessment/Plan
-
POD#4 Lysis of adhesions, Robotic sigmoid colectomy
vitals: normal
labs hypokalemia yesterday. Magnesium normal and repeat potassium pending
- Continue low residue diet
-OOB as tolerated. PT/OT ordered.
-Lovenox for dvt prophylaxis. Teds/scds in place.
-OR pathology pending
-Pain control: tylenol/toradol standing, oxycodone PRN
-Possibly later today versus tomorrow -
Subjective Data
Procedure
11/27/2024- Lysis of adhesions, Robotic sigmoid colectomy
Subjective Data
Date of Service: December 01, 2024
She states she is having some pain after eating. No nausea or vomiting. Her bowels are functioning and the diarrhea has improved.
Objective Data
-
Vital Signs
Temp Pulse Resp BP Pulse Ox
98.9 F 70 16 128/64 98
12/01/24 07:15 12/01/24 07:15 12/01/24 07:15 12/01/24 07:15 12/01/24 07:15
Intake & Output
11/30/24 12/01/24 12/02/24
06:59 06:59 06:59
Intake Total 1910 / 1910 630 / 630
Output Total 2900 / 2900
Balance -990 / -990 630 / 630
Intake:
Oral fluids 750 / 750 480 / 480
IV fluids (Total) 600 / 600 150 / 150
IV piggybacks 560 / 560
Output:
Urine, Voided 2900 / 2900
Other:
Number of approximated MODERATE 1 3
amounts of urine
Number of approximated LARGE 2
amounts of urine
Number of unmeasured liquid
stools
Rectum 2
Lab Results
11/30/24 06:10
Physical Exam
-
General: No Acute Distress
Cardiovascular: Regular Rate & Rhythm
Abdomen: Soft, Non Distended and Non Tender
Extremities: No Edema and No Calf Tenderness
Incision: Clear, Dry, Intact
[2024-12-01 09:11] LABS: Blood Urea Nitrogen 9 mg/dl (7-17); Calcium 9.0 mg/dl (8.4-10.2); Carbon Dioxide 25 mmol/L (22-30); Chloride 108 mmol/L (98-107); Estimated Creatinine Clearance 84 ml/min; Glucose 118 mg/dl (70-99); Potassium 3.8 mmol/L (3.5-5.1); Sodium 138 mmol/L (135-145); eGFR > 60.00
[2024-12-01 12:05] VITALS: BP 105/59; BP 125/65; PULSE 80; O2SAT 96
[2024-12-01 15:20] VITALS: BP 130/79
--- NOTE | 2024-12-01 16:45 | CM ---
Pt is POD#4 Lysis of adhesions, Robotic sigmoid colectomy. IV/Toradol. Discharge POC: Therapy rec for HH PT/OT. Will obtain preferences.
[2024-12-01] MEDS: EVISTA 60 MG PO (17:26)
[2024-12-01] MEDS: LOVENOX 40 MG SC (17:27)
--- NOTE | 2024-12-01 19:28 | PTCARENOTE ---
Patient tolerating Low residue well. No nausea and vomiting noted. Denies pain at this time. plan of care ongoing. call ro within reach.
[2024-12-01] MEDS: DESITIN MAXIMUM STRENGTH PASTE 1 APPLIC TOPICAL (21:28)
[2024-12-01] MEDS: CRESTOR 40 MG PO (22:35)
[2024-12-01] MEDS: AMBIEN 5 MG PO (22:36)
[2024-12-01 22:45] VITALS: BP 136/65
[2024-12-02] MEDS: TORADOL 15 MG IV ×2 (04:08→08:38)
[2024-12-02 07:00] VITALS: BP 121/66
--- NOTE | 2024-12-02 07:49 | W.PN.CRS1 ---
Addendum entered and electronically signed by John Henry MD 12/09/24 07:34:
Operative findings are consistent diverticulitis with perforation and intraabdominal/bowel abscess.
Original Note:
Today's Communication / Plan
-
dc
Assessment/Plan
-
POD#5 Lysis of adhesions, Robotic sigmoid colectomy
vitals: normal
no labs
- Continue low residue diet
-OOB as tolerated. PT/OT ordered.
-Lovenox for dvt prophylaxis. Teds/scds in place.
-OR pathology pending
-Pain control: tylenol/toradol standing, oxycodone PRN
-Okay for d/c today. Discharge instructions reviewed by Dr. Henry. All questions addressed.
Subjective Data
Procedure
11/27/2024- Lysis of adhesions, Robotic sigmoid colectomy
Subjective Data
Date of Service: December 02, 2024
Patient feels well. Denies nausea or vomiting. Has bowel function. Tolerating a diet. Pain controlled.
Objective Data
-
Vital Signs
Temp Pulse Resp BP Pulse Ox
98.3 F 67 18 136/65 99
12/01/24 22:45 12/01/24 22:45 12/01/24 22:45 12/01/24 22:45 12/02/24 01:11
Intake & Output
12/01/24 12/02/24 12/03/24
06:59 06:59 06:59
Intake Total 630 / 630 1120 / 1120
Balance 630 / 630 1120 / 1120
Intake:
Oral fluids 480 / 480 1120 / 1120
IV fluids (Total) 150 / 150
Other:
Number of approximated MODERATE 3 4
amounts of urine
Lab Results
11/30/24 06:10
12/01/24 08:40
Physical Exam
-
General: No Acute Distress and AOx3
Abdomen: Soft, Non Distended and Non Tender
Skin: Warm and Dry
Incision: Clear, Dry, Intact
[2024-12-02] MEDS: PROTONIX 40 MG PO (08:38)
--- NOTE | 2024-12-02 09:16 | CM ---
CM following re: discharge planning.
Reviewed pt's chart, met with pt.
Pt is POD#5 Lysis of adhesions, Robotic sigmoid colectomy.
Discharge order noted. Pt is aware, expressed her agreement with discharge and she stated her will transport home. IMM reviewed, placed on chart, pt has a copy.
Pt referred to [facility] on Saturday and [facility] accepted the pt for VN services.
Pt lives with in 2-story carriage house in a 55 and [place] community, [facility] with 1 step to enter, has 2 supportive children and pt is independent in all areas [employer].
Please fax discharge instructions to [facility] at [phone].
D/C plan: home with [facility] and family support. to transport
[2024-12-02 12:47] VITALS: BP 126/75
--- NOTE | 2024-12-03 12:13 | PN.CDI ---
CDI
- -
CDI:
Physician Documentation Request
Admit Date: 11/24/24 15:36
Dear Doctor Carl,
Please review the following and provide your response in the progress notes.
Clinical Indicators:
The diagnosis of Segment of colon with a large diverticulum with perforation and abscess formation and serosal adhesions. was included in the signed (path report on 12/02)
Additional clinical indicators in the chart include:
Pt admitted with recurrence of diverticulitis s/p lysis of adhesions and sigmoid colectomy
Pathology,' �Segment of colon with a large diverticulum with perforation and abscess formation and serosal adhesions....Sectioning reveals a thickened bowel wall with a single diverticulum, immediately adjacent to which is an abscess cavity within
the bowel wall measuring 2.2 x 1.4 x 1.0 cm, filled with purulent debris and located beneath the edematous, raised and flattened area on the mucosal surface. ....'
Please indicate in your progress notes if you are in agreement that the above diagnosis is valid for this patient:
____ -Diverticulitis with perforation and intraabdominal/bowel abscess a valid diagnosis
____ -Diverticulitis with perforation and intraabdominal/bowel abscess is not a valid diagnosis for this patient
____ - Other ( please specify)
Use of terms such as suspected, likely, concern for, or probable are acceptable for a diagnosis that is being evaluated, monitored or treated as if it exists and can be coded in the inpatient setting, when documented at the time of discharge.
Thank you,
Fatemeh Reveles RN
CDI Specialist
[place] [facility]
Please use your independent medical judgment in providing your response.
== END 2024-12-02 14:01 | disposition home health service (06) | DRG 329 ==
LOC: 2 NORTH 15:36
PROVIDERS: Physician Assistant; Student in an Organized Health Care Education/Training Program; ADMITTING PHYSICIAN Internal Medicine; ATTENDING PHYSICIAN Surgery; EMERGENCY PHYSICIAN Emergency Medicine; FAMILY PHYSICIAN Family Medicine
PROC: 0DNU4ZZ Release Omentum, Percutaneous Endoscopic Approach (ICD-10-PCS; 2024-11-27)
PROC: 0DN84ZZ Release Small Intestine, Percutaneous Endoscopic Approach (ICD-10-PCS; 2024-11-27)
PROC: 8E0W4CZ Robotic Assisted Procedure of Trunk Region, Percutaneous Endoscopic Approach (ICD-10-PCS; 2024-11-27)
PROC: 0DTN4ZZ Resection of Sigmoid Colon, Percutaneous Endoscopic Approach (ICD-10-PCS; 2024-11-27)
PROC: 0DJD8ZZ Inspection of Lower Intestinal Tract, Via Natural or Artificial Opening Endoscopic (ICD-10-PCS; 2024-11-27)
DX: K57.20 Diverticulitis of large intestine with perforation and abscess without bleeding (principal); K65.1 Peritoneal abscess; C88.40 Extranodal marginal zone B-cell lymphoma of mucosa-associated lymphoid tissue [MALT-lymphoma] not having achieved remission; E87.1 Hypo-osmolality and hyponatremia; K66.0 Peritoneal adhesions (postprocedural) (postinfection); E78.00 Pure hypercholesterolemia, unspecified; D72.819 Decreased white blood cell count, unspecified; E03.9 Hypothyroidism, unspecified; N73.6 Female pelvic peritoneal adhesions (postinfective); N80.9 Endometriosis, unspecified; K58.9 Irritable bowel syndrome, unspecified; R39.11 Hesitancy of micturition; E87.6 Hypokalemia; Z82.49 Family history of ischemic heart disease and other diseases of the circulatory system; Z85.828 Personal history of other malignant neoplasm of skin; Z90.710 Acquired absence of both cervix and uterus; Z90.49 Acquired absence of other specified parts of digestive tract; Z88.1 Allergy status to other antibiotic agents; Z88.3 Allergy status to other anti-infective agents; Z88.2 Allergy status to sulfonamides; Z88.8 Allergy status to other drugs, medicaments and biological substances; Z79.890 Hormone replacement therapy; Z86.19 Personal history of other infectious and parasitic diseases
CPT/HCPCS: 74177; 80048; 80053; 81003; 81015; 83690; 83735; 85025; 85027; 86850; 86900; 86901; 87045; 87046; 87086; 87324; 87328; 87329; 87427; 87449; 88307; 96361; 96374; 96375; 97162; 97166; 97530; 97535; 99285; Q9967

== ENCOUNTER → 2025-01-14 12:47 | Outpatient (REF) | payer MEDICARE, OTHER, SELFPAY | LOC: WDC 12:47 | PROVIDERS: ATTENDING PHYSICIAN Obstetrics & Gynecology Gynecology; FAMILY PHYSICIAN Family Medicine | DX: R92.2 Inconclusive mammogram (principal) | CPT/HCPCS: 76641 ==

== ENCOUNTER 2025-01-25 11:41 | Outpatient (RCR) | payer MEDICARE, OTHER, SELFPAY | END 2025-01-25 23:59 | disposition home or self-care (01) | LOC: RPT 11:41 | PROVIDERS: ATTENDING PHYSICIAN Family Medicine | DX: N81.3 Complete uterovaginal prolapse (principal); N81.84 Pelvic muscle wasting; Z73.6 Limitation of activities due to disability | CPT/HCPCS: 97110; 97140; 97161; 97530 ==

== ENCOUNTER → 2025-02-24 08:27 | Outpatient (REF) | payer MEDICARE, OTHER, SELFPAY | LOC: RAD 08:27 | PROVIDERS: ATTENDING PHYSICIAN Surgery; FAMILY PHYSICIAN Family Medicine | DX: R10.32 Left lower quadrant pain (principal) | CPT/HCPCS: 74177; Q9967 ==

== ENCOUNTER 2025-03-02 09:37 | Outpatient (RCR) | payer MEDICARE, OTHER, SELFPAY | END 2025-03-02 23:59 | disposition home or self-care (01) | LOC: RPT 09:37 | PROVIDERS: ATTENDING PHYSICIAN Family Medicine | DX: N81.3 Complete uterovaginal prolapse (principal); N81.84 Pelvic muscle wasting; Z73.6 Limitation of activities due to disability | CPT/HCPCS: 97014; 97110; 97112; 97140; 97530 ==